=== PATIENT | female | born 1970 | race Caucasian/White ===

== ENCOUNTER → 2017-07-20 | Outpatient (CLI) | payer MEDICAID ==
[~2017-07-20] VITALS: Ht 154.9 cm; Wt 91.6 kg
[~2017-07-20] MED LIST: ACET325T38 PO; ASPI-983 PO; ATOR10TA66 PO; CATHETER FLUSH 10 ML SYR IV PRN; CEFU500T63 PO; DULO60CA6 PO; HYDR-700 PO; LISI10TA2 PO; REGADENOSON 0.4 MG/5 ML SYR (LEXISCAN) IV ONE; RT-ALBUINH IH; TIOT18CA2 IH
[2017-07-20 13:08] VITALS: BP 120/76
[2017-07-20 13:12] VITALS: BP 134/77
[2017-07-20 13:13] VITALS: BP 149/74
--- NOTE | 2017-07-23 11:56 | STRESS TEST ---
DATE OF SERVICE: 07/20/2017 PROCEDURE PERFORMED: Resting and post-regadenoson technetium-99m tetrofosmin SPECT CT imaging. ORDERING PHYSICIAN: Obdulia Bowman APRN. PRIMARY PHYSICIAN: Rosario Pickens DO. OTHER PHYSICIAN: Deborah Lawrence APRN. CLINICAL DIAGNOSIS: Chest pain. Baseline images were carried out after injection of 10.35 mCi of technetium-99m tetrofosmin. This was followed by 0.4 mg of regadenoson and 28.6 mCi of technetium-99m tetrofosmin for stress imaging. The electrocardiogram showed paced ventricular rhythm versus a junctional rhythm with left bundle-branch block pattern and some evidence of AV dissociation. Later, the electrocardiogram shows normal sinus rhythm without any paced beats or junctional beats. The patient noted shortness of breath and nausea following regadenoson infusion, which resolved in a few minutes after the regadenoson infusion. Review of images at rest and following stress does not indicate any significant perfusion defects consistent with significant myocardial ischemia or infarction. Gated images show normal global left ventricular systolic function and normal regional wall motion. Left ventricular ejection fraction is calculated to be 61%. Left ventricular end diastolic volume is 35 mL. TID is absent (1.03). CONCLUSIONS: 1. The first part of the study shows a paced ventricular rhythm versus junctional rhythm with a left bundle-branch block pattern and some evidence of AV dissociation. 2. No evidence of significant myocardial ischemia or infarction on this study. 3. Normal regional wall motion. 4. Normal global left ventricular systolic function with a calculated ejection fraction of 61%. Job ID: [id number] DocumentID: [id number] Dictated Date: 07/23/2017 07:32:04 Material Controller Date: 07/23/2017 11:55:28 Dictated By: CORNELL ELAM MD, MA, FACP, FACC, MTDD
== END ==
LOC: CARD 09:51
PROVIDERS: ATTEND Nurse Practitioner Family
DX: R07.9 Chest pain, unspecified (principal)
CPT/HCPCS: 78452; 93017

== ENCOUNTER 2017-08-03 06:48 | Day surgery (SDC) | payer MEDICAID ==
[2017-08-03] VITALS (9 sets, daily range): BP systolic 101–129; BP diastolic 58–89
[~2017-08-03] VITALS: Ht 154.9 cm; Wt 88.0 kg
[2017-08-03] MEDS ORDERED: HEParin (CATH LAB) 1,000 ML IV ONE (06:54)
[2017-08-03] MEDS ORDERED: NS IV 1000 ML 1,000 ML ONE (06:54)
[2017-08-03] MEDS ORDERED: LIDOCAINE 1% INJ 20 ML 20 ML VIAL ONE (06:54)
[2017-08-03] MEDS ORDERED: NS IV 1000 ML 1,000 ML IV ONE (06:56)
[2017-08-03] MEDS ORDERED: ceFAZolin 1,000 MG (ANCEF) VIAL IV ONE (07:00)
[2017-08-03] MEDS ORDERED: BACITRACIN INJECTION 50,000 UNIT, SODIUM CHLORIDE 0.9% IRRIGATIO 500 ML IR ONE ×2 (07:00)
[2017-08-03 07:26] LABS: HEMOGLOBIN 17.8 G/DL (11.5-16.0); MEAN PLATELET VOLUME 12.2 FL (7.4-10.4); RED BLOOD COUNT 5.93 10^6/uL (4.35-5.85); RED CELL DISTRIBUTION WIDTH 14.4 % (10.0-14.5); WHITE BLOOD COUNT 8.4 10^3/uL (4.3-11.0)
[2017-08-03] MEDS ORDERED: TIOT18CA2 IH (07:26)
[2017-08-03] MEDS ORDERED: HYDR-700 PO (07:26)
[2017-08-03] MEDS ORDERED: RT-ALBUINH IH (07:26)
[2017-08-03] MEDS ORDERED: LISI10TA2 PO (07:26)
[2017-08-03] MEDS ORDERED: DULO60CA6 PO (07:26)
[2017-08-03] MEDS ORDERED: ATOR10TA66 PO (07:26)
[2017-08-03] MEDS ORDERED: ASPI-983 PO (07:26)
[2017-08-03] MEDS ORDERED: ceFAZolin 1,000 MG (ANCEF) VIAL ONE (07:32)
[2017-08-03] MEDS ORDERED: NS (IVPB) 50 ML ONE (07:33)
[2017-08-03 07:45] LABS: INR 1.1 (0.8-1.4); PROTHROMBIN TIME PATIENT 14.2 SEC (12.2-14.7)
[2017-08-03 07:46] LABS: ALANINE AMINOTRANSFERASE 27 U/L (0-55); ALBUMIN 4.1 GM/DL (3.2-4.5); ALKALINE PHOSPHATASE 96 U/L (40-136); BILIRUBIN,TOTAL 0.5 MG/DL (0.1-1.0); BUN/CREATININE RATIO 15; CALCIUM 9.2 MG/DL (8.5-10.1); CARBON DIOXIDE 21 MMOL/L (21-32); CHLORIDE 109 MMOL/L (98-107); CHOLESTEROL 154 MG/DL (< 200); CREATININE SERUM 0.75 MG/DL (0.60-1.30); GFR ESTIMATED > 60; GLUCOSE 96 MG/DL (70-105); HDL CHOLESTEROL 29 MG/DL (40-60); POTASSIUM 4.3 MMOL/L (3.6-5.0); SODIUM 141 MMOL/L (135-145); TOTAL PROTEIN 7.2 GM/DL (6.4-8.2); TRIGLYCERIDES 123 MG/DL (<150); VLDL CHOLESTEROL 25 MG/DL (5-40)
[2017-08-03] MEDS ORDERED: fentaNYL INJECTION 100 MCG/2 ML AMP ONE (09:27)
[2017-08-03] MEDS ORDERED: MIDAZOLAM 5 MG/5 ML (VERSED) VIAL ONE (09:27)
[2017-08-03] MEDS ORDERED: diphenhydrAMINE 50 MG/ML INJ (BENADRYL) ONE (09:27)
[2017-08-03] MEDS ORDERED: NEO/POLY/BAC (NEOSPORIN) OINT 15 GM TUBE ONE (10:52)
--- NOTE | 2017-08-03 11:11 | Cardiac Procedure Note-CS/ASA ---
Pre-Procedure Note Pre-Op Procedure Note H&P Reviewed The H&P was reviewed, patient examined and no changes noted. Date H&P Reviewed: Aug 03, 2017 Time H&P Reviewed: 10:00 Conscious Sedation Pre-Proced Time Reviewed: 10:00 ASA Class: 3 Airway Mallampati Classification: (g[place] appropriate class) I. II. III, IV Lungs Heart ASA score ASA 1: a normal healthy patient ASA 2: a patient with a mild systemic disease (mid diabetes, controlled hypertension, obesity ASA 3: a patient with a severe systemic disease that limits activity (angina , COPD, prior Myocardial infarction) ASA 4: a patient with an incapacitating disease that is a constant threat to life (CHF, renal failure) ASA 5: a moribund patient not expected to survive 24 hrs. (ruptured aneurysm) ASA 6: a declared brain patient whose organs are being harvested. For emergent operations, add the letter E after the classification Grade 3 Sedation Plan: Analgesia, Amnesia, Plan communicated to team members, Discussed options with patient/fam, Discussed risks with patient/fam Note The patient is an appropriate candidate to undergo the planned procedure, sedation, and anesthesia. The patient immediately re-assessed prior to indication. CORNELL ELAM MD FACP FAC CCDS Aug 03, 2017 11:11
[2017-08-03] MEDS ORDERED: NS IV 1000 ML 1,000 ML IV SCH (11:12)
[2017-08-03] MEDS ORDERED: PATIENT MAY USE OWN MEDS, ALL PO SCH (11:15)
[2017-08-03] MEDS ORDERED: ACET325T38 PO (11:17)
[2017-08-03] MEDS ORDERED: CEFU500T63 PO (11:17)
--- NOTE | 2017-08-03 11:20 | Discharge Inst-Post Device ---
Discharge Inst-Post Device Follow up/Plan Follow up at Dr Garza'eunice on 08/06/17 for wound inspection Follow up at Dr Giles for doctor visit in 2-3 weeks Heart Healthy Diet . Activity as tolerated. Leave dressing on until follow up at the office. CORNELL GARZA MD FACP FACC CCDS Aug 03, 2017 11:20
--- NOTE | 2017-08-03 11:20 | Discharge Inst-Cardiology ---
Discharge Inst-Cardiac Discharge Medications New Medications: Acetaminophen (Tylenol) 325 Mg Tablet 650 MG PO Q6H PRN for PAIN-MILD TO MODERATE, #60 TAB 0 Refills Cefuroxime Axetil (Cefuroxime) 500 Mg Tablet 500 MG PO BID, #10 TAB 0 Refills Continued Medications: Albuterol Sulfate (Proventil Hfa) 6.7 Gm Hfa.aer.ad 2 PUFF IH Q4-6HR PRN for SHORTNESS OF BREATH, EACH Aspirin (Aspirin EC) 81 Mg Tablet.dr 81 MG PO DAILY, TAB Atorvastatin Calcium (Atorvastatin Calcium) 10 Mg Tablet 10 MG PO HS, TAB Duloxetine HCl (Cymbalta) 60 Mg Capsule.dr 60 MG PO DAILY, CAP Hydroxyzine HCl (Hydroxyzine HCl) 25 Mg Tablet 25 MG PO BID PRN for ANXIETY, TAB Lisinopril (Lisinopril) 10 Mg Tablet 10 MG PO DAILY, TAB Tiotropium [place] (Spiriva) 1 Inh Aerp 1 INH IH DAILY, INHALER CORNELL ELAM MD FACP FAC CCDS Aug 03, 2017 11:20
--- NOTE | 2017-08-03 12:35 | Diagnostic Imaging Report ---
INDICATION: Post operative pacemaker pulse generator change. TECHNIQUE: Single view chest 11:35 AM. CORRELATION STUDY: None FINDINGS: Left-sided dual-chamber pacemaker is present. There is a redundancy of the proximal leads. Heart size enlarged. The vasculature is slightly prominent. Slight increased markings about the lung bases, right greater than left. No appreciable pneumothorax or significant effusion. IMPRESSION: 1. Left-sided multichamber pacemaker. Cardiac enlargement with mild vascular congestion. Slight increased markings in the lung bases, right greater than left, could reflect minimal atelectasis with hypoventilation. Infiltrate and/or edema not excluded. Followup imaging as clinically warranted. Dictated by: Dictated on workstation # [id number]
--- NOTE | 2017-08-03 21:52 | OPERATIVE REPORT ---
DATE OF SERVICE: 08/03/2017 The patient is a 46-year-old lady who has had a dual chamber pacemaker implanted by Dr. Sanches at [facility] in [place], [place] in 2006. The device was placed for symptomatic bradycardia. It is currently at end of life and we changed the device today after having obtained an informed consent. DESCRIPTION OF PROCEDURE: She was brought to the cardiac catheterization laboratory in a fasting state. The left prepectoral area, the site of previous pacemaker implantation, was prepared and draped in usual sterile fashion. A 1% lidocaine was used for local anesthesia. Sharp and blunt dissection was used to open the pacemaker pocket and the pacemaker was removed from the pocket. The pocket was thoroughly irrigated with an antibiotic solution. Good hemostasis was assured. The pacemaker was detached from the previous device and a new pacemaker was attached to the old leads. The implanted pacemaker is Medtronic model W3DR01 with serial number [id number]. The pacemaker and the leads are found to be functioning normally upon interrogation carried out following the pulse generator change. The right atrial lead is Medtronic model 5076-52 with serial number [id number]. The right ventricular lead is Medtronic model 5076-58 with serial number [id number]. The right atrial lead tip is at right atrial appendage and the right ventricular lead tip is at the right ventricular septum, according to previous records. The right ventricular sensing threshold is chronically low and ranges between 2 and 3 millivolts. Today, the R waves are measured at 2.4 millivolts, which is unchanged from the previous readings. P-wave amplitude was measured at 3 millivolts. Right atrial pacing impedance is 494 ohms. Right ventricular pacing impedance is 456 ohms. Capture threshold in both chambers is 1 volt at 0.5 milliseconds. The device and the leads were then placed back into the pacemaker pocket after the pocket had been irrigated with an antibiotic solution and good hemostasis was assured and the pocket was closed in 2 layers using 3-0 Vicryl. She tolerated the procedure well. Job ID: [id number] DocumentID: [id number] Dictated Date: 08/03/2017 11:05:14 Elevator Attendant Date: 08/03/2017 21:51:33 Dictated By: CORNELL ELAM MD, MA, FACP, FACC,
== END 2017-08-03 13:42 | disposition home or self-care (01) ==
LOC: CATH 06:48 → SURG 11:12 → CATH 13:42
PROVIDERS: ATTEND Internal Medicine Cardiovascular Disease
DX: Z45.010 Encounter for checking and testing of cardiac pacemaker pulse generator [battery] (principal); I10 Essential (primary) hypertension; E11.9 Type 2 diabetes mellitus without complications; E78.5 Hyperlipidemia, unspecified; F17.210 Nicotine dependence, cigarettes, uncomplicated; E66.9 Obesity, unspecified; Z68.36 Body mass index [BMI] 36.0-36.9, adult; Z79.82 Long term (current) use of aspirin; Z79.899 Other long term (current) drug therapy
CPT/HCPCS: 33228; 36415; 71045; 80053; 80061; 85027; 85610; 85730; 87081; 93005

== ENCOUNTER → 2017-08-24 | Outpatient (CLI) | payer MEDICAID ==
[~2017-08-24] MED LIST changes: -CATHETER FLUSH 10 ML SYR IV PRN; -REGADENOSON 0.4 MG/5 ML SYR (LEXISCAN) IV ONE
--- NOTE | 2017-08-24 16:21 | Diagnostic Imaging Report ---
EXAMINATION: Ultrasound noninvasive extremity. INDICATION: Chest pain. FINDINGS: The segmental pressures of each lower extremity were obtained in the routine fashion. On the prior exam of 09/22/2014, the ankle-brachial index on the right was 0.95 and on the left 1.01 (normal 1.00 or greater). On this exam, the ankle-brachial index on the right is now 1.01 and on the left 0.95. IMPRESSION: The ankle-brachial index on the right is now within normal limits while the ankle-brachial index on the left is just below normal. Dictated by: Dictated on workstation # [id number]
== END ==
LOC: CARD 11:21
PROVIDERS: ATTEND Nurse Practitioner Family
DX: R07.9 Chest pain, unspecified (principal)
CPT/HCPCS: 93306; 93923

== ENCOUNTER → 2017-09-01 | Outpatient (CLI) | payer MEDICAID ==
--- NOTE | 2017-09-01 15:45 | Diagnostic Imaging Report ---
INDICATION: Low back pain radiating to the legs. TIME OF EXAM: 4:00 p.m. FINDINGS: Curvature and alignment of the lumbar spine is normal. Vertebral body heights are maintained. There is some generalized degenerative disc disease with marginal spurring. There is some disc space narrowing at L4-L5 level. There appears to be an aortic stent in place. Lower lumbar facet arthropathy is seen. IMPRESSION: Lumbar spondylosis. No acute bony abnormality is detected. Dictated by: Dictated on workstation # [id number]
== END ==
LOC: RT 14:50
PROVIDERS: ATTEND Nurse Practitioner Family
DX: M54.41 Lumbago with sciatica, right side (principal); J44.9 Chronic obstructive pulmonary disease, unspecified; Z72.0 Tobacco use
CPT/HCPCS: 72100

== ENCOUNTER 2018-03-08 09:59 | Day surgery (SDC) | payer MEDICAID ==
[~2018-03-08] VITALS: Ht 154.9 cm; Wt 94.3 kg
[2018-03-08] VITALS (10 sets, daily range): BP systolic 135–168; BP diastolic 67–102
--- OUTSIDE RECORDS SUMMARY | 2018-03-08 10:03 | XMS REPORT ---
Author Author LUDMILA CARLITOS [facility] Address [address] [place] [address] Care Team Providers Care Lap Welder Name Role Phone CARLITOS KEYS Unavailable PROBLEMS Type Condition ICD9-CM Code QWD78-NQ Code Onset Dates Condition Status SNOMED Code Problem Dysthymia F34.1 Active 20225142 Problem Hyperglycemia R73.9 Active 67693334 Problem Hypertension, essential I10 Active 09345801 Problem Lumbar spondylolysis M43.06 Active 047044258 Problem Tobacco abuse counseling Z71.6 Active 429585877 Problem PAD (peripheral artery disease) I73.9 Active 076344507 Problem Mitral valve disorder I05.9 Active 10692026 Problem Tobacco abuse Z72.0 Active 233451083 Problem Pacemaker Z95.0 Active 880217758 Problem Anhedonia R45.84 Active 63064227 Problem Chronic obstructive pulmonary disease, unspecified COPD type J44.9 Active 63835946 Problem Pulmonary emphysema, unspecified emphysema type J43.9 Active 31002808 Problem Hyperlipidemia, unspecified hyperlipidemia E78.5 Active 83811767 Problem Lumbago with sciatica, right side M54.41 Active 628524694 Problem Coronary artery disease involving [place] coronary artery of [place] heart without angina pectoris I25.10 Active 5658856569109 Problem Other chronic pain G89.29 Active 55468487 ALLERGIES No Information ENCOUNTERS Encounter Location Date Diagnosis [facility] [address] [id number][place] [id number] Oct, [facility] [address] [id number][place] [id number] Sep, Urinary tract infection, site not specified N39.0 ; Acute right-sided low back pain, with sciatica presence unspecified M54.5 and Hematuria, unspecified R31.9 [facility] [address] [place] [address] AVE [id number], [place] [id number] Sep, [facility] [address] [id number] [place] [id number] Sep, [address] [id number][place] [id number] Sep, [address] [id number], [place] [id number] Sep, [facility] [address] [id number], [place] [id number] Aug, [facility] [address] [facility] [id number] [place] [address] Aug, [facility] [address] [id number][place] [id number] Aug, Lumbar spondylolysis M43.06 [facility] [address] [id number][place] [id number] Aug, Tobacco abuse Z72.0 [facility] [address] [id number], [place] [id number] Aug, Chronic obstructive pulmonary disease, unspecified COPD type J44.9 ; Tobacco abuse Z72.0 ; Tobacco abuse counseling Z71.6 ; Lumbago with sciatica, right side M54.41 and Other chronic pain G89.29 [facility] [address] [id number], [place] [id number] Aug, [facility] [address] [id number], [place] [id number] Aug, Hyperlipidemia, unspecified hyperlipidemia E78.5 ; Hypertension, essential I10 ; Pulmonary emphysema, unspecified emphysema type J43.9 ; Dysthymia F34.1 and Chronic obstructive pulmonary disease, unspecified COPD type J44.9 [facility] [address] [id number][place] [id number] June, Chest pain R07.9 ; Dyspnea on exertion R06.09 ; CAD (coronary artery disease) I25.10 ; Mitral valve disorder I05.9 ; Tobacco abuse Z72.0 ; Pacemaker Z95.0 ; PAD (peripheral artery disease) I73.9 and BMI 40.0-44.9, adult Z68.41 [facility] [address] [id number][place] [id number] June, Dysthymia F34.1 [facility] [address] [id number], [place] [id number] Apr, [facility] [address] [id number], [place] [id number] Apr, Coronary artery disease involving [place] coronary artery of [place] heart without angina pectoris I25.10 [facility] [address] [id number], [place] [id number] Apr, [facility] [address] [id number], [place] [id number] Apr, [facility] [address] [address] [id number][place] [id number] Apr, [facility] [address] [id number], [place] [id number] Apr, Hyperglycemia R73.9 ; Chronic obstructive pulmonary disease, unspecified COPD type J44.9 ; Dysthymia F34.1 and BMI 40.0-44.9, adult Z68.41 [facility] [address] [id number], [place] [id number] Mar, Pulmonary emphysema, unspecified emphysema type J43.9 and Dysthymia F34.1 [facility] [address] [id number], [place] [id number] Feb, Hyperlipidemia, unspecified hyperlipidemia E78.5 ; Hypertension, essential I10 ; Hyperglycemia R73.9 and Pulmonary emphysema, unspecified emphysema type J43.9 [facility] [address] [id number], [place] [id number] Feb, Pulmonary emphysema, unspecified emphysema type J43.9 ; Dysthymia F34.1 ; Lumbago with sciatica, right side M54.41 and Other chronic pain G89.29 [facility] [address] [id number], [place] [id number] Feb, [facility] [address] [facility] [id number][place] [id number] Nov, [facility] [address] [facility] [id number], [place] [id number] Nov, Chronic obstructive pulmonary disease, unspecified COPD type J44.9 ; Encounter for immunization Z23 ; Hyperlipidemia, unspecified hyperlipidemia E78.5 ; Coronary artery disease involving [place] coronary artery of [place] heart without angina pectoris I25.10 and Anhedonia R45.84 [facility] [address] [place] [address] [id number], [place] [id number] Jul, Coronary atherosclerosis of unspecified type of vessel, [place] or graft 414.00 ; Mixed hyperlipidemia 272.2 ; COPD (chronic obstructive pulmonary disease) 496 ; Obesity 278.00 and Bipolar disorder 296.80 [facility] [address] [place] [address] [id number], [place] [id number] June, Coronary atherosclerosis of unspecified type of vessel, [place] or graft 414.00 ; Mixed hyperlipidemia 272.2 ; Metabolic syndrome 277.7 ; COPD ( chronic obstructive pulmonary disease) 496 and Elevated liver enzymes 790.5 [facility] [address] [facility] [id number], [place] [id number] May, COPD with acute exacerbation 491.21 and Tobacco abuse 305.1 [facility] [id number] [place] [id number] May, [facility] [id number] [place] [address] May, [facility] [id number] [place] [address] Apr, [facility] [id number] [place] [address] Apr, [facility] [id number] [place] [id number] Apr, [facility] [place] [facility] [address] [id number] [place] [address] Apr, [facility] [place] [facility] [address] [id number] [place] [address] Feb, [facility] [place] [facility] [address] [id number] [place] [address] Feb, [facility] [place] [facility] [address] [id number] [place] [address] Feb, [facility] [place] [facility] [address] [id number] [place] [address] Feb, [facility] [place] [facility] [address] [id number] [place] [address] Dec, [facility] [place] [facility] [address] [id number] [place] [address] Dec, [facility] [place] [facility] [address] [id number] [place] [address] Nov, [facility] [place] [facility] [address] [id number] [place] [address] 23 Nov, 2012 [facility] [place] [facility] [address] [id number], [place] [address] 18 Nov, 2012 [facility] [place] [facility] [address] [id number] [place] [address] 18 Nov, 2012 [facility] [place] [facility] [address] [id number], [place] [address] 16 Nov, 2012 [facility] [place] [facility] [address] [id number] [place] [address] 16 Nov, 2012 [facility] [place] [facility] [address] [id number] [place] [address] Nov, [facility] [place] [facility] [address] [id number] [place] [address] Nov, [facility] [place] [facility] [address] [id number] [place] [address] 08 Nov, 2012 [facility] [address] [id number] [place] [address] Aug, [facility] [place] [facility] [address] [id number] [place] [address] Aug, [facility] [address] [id number] [place] [address] Aug, [facility] [place] [facility] [address] [id number] [place] [address] May, [facility] [address] [id number] [place] [address] May, [facility] [place] [facility] [address] [id number] [place] [address] May, [facility] [address] [id number] [place] [address] May, [facility] [address] [id number] [place] [address]- 237[address] May, [facility] [address] [id number] [place] [address]- 47[address] May, [facility] [place] [facility] [address] [id number] [place] [address]- [address] May, [facility] [place] [facility] [address] [id number] [place] [address]- 1577 May, [facility] [place] [facility] [address] [id number] [place] [address]- [address] Apr, [facility] [place] [facility] [address] [id number] [place] [address] Mar, [facility] [place] [facility] [address] [id number] [place] [address]- 66[address] Feb, [facility] [place] [facility] [address] [id number] [place] [address]- [address] Feb, [facility] [place] [facility] [address], [place] [address] Jan, [facility] [address], [place] [address] Jan, [facility] [address] [facility] [id number], [place] [address] Jan, [facility] [id number] [place] [address]- [address] Jan, [facility] [address] [facility] [id number], [place] [address] Jan, [facility] [id number] [place] [address]- [address] Jan, [facility] [address], [place] [address] Jan, [facility] [id number] [place] [address]- [address] Nov, [facility] [address], [place] [address] Nov, [facility] [address]65[address], [place] [address] Nov, [facility] [address] [id number], [place] [address] Jul, IMMUNIZATIONS No Known Immunizations SOCIAL HISTORY Never Assessed REASON FOR VISIT lung function test PLAN OF CARE VITAL SIGNS MEDICATIONS Unknown Medications RESULTS No Results PROCEDURES No Known procedures INSTRUCTIONS MEDICATIONS ADMINISTERED No Known Medications MEDICAL (GENERAL) HISTORY Type Description Date Medical History hypertension Medical History fatty liver Medical History depression Medical History bipolar disorder Medical History obsessive-compulsive personality disorder Medical History hyperlipidemia Medical History CAD-dual chamber d/t bradycardia in 30's has pacemaker, h/o 2 stents Medical History OSAS but untreated Medical History GERD Medical History PTSD Medical History Metabolic Syndrome Medical History cervical cancer Medical History carpal tunnel Medical History CVD risk 23.2% Medical History COPD-chest x-ray Medical History normal PFT Medical History x-ray lumbar spine mild spondylosis Surgical History hysterectomy full cervical cancer stage 2 ELIJAH with BSO 2002 Surgical History Cardiothoracic has 2 stents 2006 Surgical History cholecystectomy 1990 Surgical History pacemaker 2006 Surgical History pacemaker revision 2017 Hospitalization History Surgery(s) only
--- OUTSIDE RECORDS SUMMARY | 2018-03-08 10:04 | XMS REPORT ---
Author Author LUDMILA CARLITOS [facility] Address [address] [place] [address] Care Team Providers Care Furniture Removalist Name Role Phone CARLITOS KEYS Unavailable PROBLEMS Type Condition ICD9-CM Code ZHG19-VM Code Onset Dates Condition Status SNOMED Code Problem Dysthymia F34.1 Active 00520937 Problem Hyperglycemia R73.9 Active 47843462 Problem Hypertension, essential I10 Active 76162807 Problem Lumbar spondylolysis M43.06 Active 866376665 Problem Tobacco abuse counseling Z71.6 Active 210553604 Problem PAD (peripheral artery disease) I73.9 Active 783217048 Problem Mitral valve disorder I05.9 Active 21387682 Problem Tobacco abuse Z72.0 Active 042046358 Problem Pacemaker Z95.0 Active 323626348 Problem Anhedonia R45.84 Active 51445380 Problem Chronic obstructive pulmonary disease, unspecified COPD type J44.9 Active 76908413 Problem Pulmonary emphysema, unspecified emphysema type J43.9 Active 58042265 Problem Hyperlipidemia, unspecified hyperlipidemia E78.5 Active 56651983 Problem Lumbago with sciatica, right side M54.41 Active 107023221 Problem Coronary artery disease involving three affiliated coronary artery 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 angina pectoris I25.10 Active 5072138461222 Problem Other chronic pain G89.29 Active 43604320 ALLERGIES No Information ENCOUNTERS Encounter Location Date Diagnosis [facility] [address] [id number] [id number] Oct, [facility] [address] [id number] [place] [address] Sep, Urinary tract infection, site not specified N39.0 ; Acute right-sided low back pain, with sciatica presence unspecified M54.5 and Hematuria, unspecified R31.9 [facility] [address] [place] [address] AVE [id number], [place] [address] Sep, [facility] [address] [id number] [place] [address] Sep, [address] [id number], [place] [address] Sep, [address] [id number], [place] [address] Sep, [facility] [address] [id number], [place] [address] Aug, [facility] [address] [facility] [id number] [place] [address] Aug, [facility] [address] [id number], [place] [id number] Aug, Lumbar spondylolysis M43.06 [facility] [address] [id number], [place] [address] Aug, Tobacco abuse Z72.0 [facility] [address] [id number], [place] [address] Aug, Chronic obstructive pulmonary disease, unspecified COPD type J44.9 ; Tobacco abuse Z72.0 ; Tobacco abuse counseling Z71.6 ; Lumbago with sciatica, right side M54.41 and Other chronic pain G89.29 [facility] [address] [id number], [place] [id number] Aug, [facility] [address] [id number], [place] [address] Aug, Hyperlipidemia, unspecified hyperlipidemia E78.5 ; Hypertension, essential I10 ; Pulmonary emphysema, unspecified emphysema type J43.9 ; Dysthymia F34.1 and Chronic obstructive pulmonary disease, unspecified COPD type J44.9 [facility] [address] [id number], [place] [address] June, Chest pain R07.9 ; Dyspnea on exertion R06.09 ; CAD (coronary artery disease) I25.10 ; Mitral valve disorder I05.9 ; Tobacco abuse Z72.0 ; Pacemaker Z95.0 ; PAD (peripheral artery disease) I73.9 and BMI 40.0-44.9, adult Z68.41 [facility] [address] [id number], [place] [id number] June, Dysthymia F34.1 [facility] [address] [id number], [place] [address] Apr, [facility] [address] [id number], [place] [address] Apr, Coronary artery disease involving three affiliated coronary artery 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 angina pectoris I25.10 [facility] [address] [id number], [place] [address] Apr, [facility] [address] [id number], [place] [id number] Apr, [facility] [address] [id number], [place] [address] Apr, [facility]in[facility]K [address] [id number], [place] [address] Apr, Hyperglycemia R73.9 ; Chronic obstructive pulmonary disease, unspecified COPD type J44.9 ; Dysthymia F34.1 and BMI 40.0-44.9, adult Z68.41 [facility] [address] [id number], [place] [id number] Mar, Pulmonary emphysema, unspecified emphysema type J43.9 and Dysthymia F34.1 [facility] [address] [id number], [place] [address] Feb, Hyperlipidemia, unspecified hyperlipidemia E78.5 ; Hypertension, essential I10 ; Hyperglycemia R73.9 and Pulmonary emphysema, unspecified emphysema type J43.9 [facility] [address] [id number], [place] [address] Feb, Pulmonary emphysema, unspecified emphysema type J43.9 ; Dysthymia F34.1 ; Lumbago with sciatica, right side M54.41 and Other chronic pain G89.29 [facility] [address] [facility] [address] [id number], [place] [id number] Feb, [facility] [facility] [id number], [place] [id number] Nov, [facility] Silverman [facility] [id number], [place] [address]38803179 Nov, Chronic obstructive pulmonary disease, unspecified COPD type J44.9 ; Encounter for immunization Z23 ; Hyperlipidemia, unspecified hyperlipidemia E78.5 ; Coronary artery disease involving three affiliated coronary artery 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 angina pectoris I25.10 and Anhedonia R45.84 [facility] [address] [place] [address] [id number], [place] [address] Jul, Coronary atherosclerosis of unspecified type of vessel, three affiliated or graft 414.00 ; Mixed hyperlipidemia 272.2 ; COPD (chronic obstructive pulmonary disease) 496 ; Obesity 278.00 and Bipolar disorder 296.80 [facility] [address] [place] [address] [id number], [place] 1860[address]237 June, Coronary atherosclerosis of unspecified type of vessel, three affiliated or graft 414.00 ; Mixed hyperlipidemia 272.2 ; Metabolic syndrome 277.7 ; COPD ( chronic obstructive pulmonary disease) 496 and Elevated liver enzymes 790.5 [facility] Silverman [facility] [id number], [place] [address] May, COPD with acute exacerbation 491.21 and Tobacco abuse 305.1 [facility] [place] [facility] [address] [place] [address]- [address] May, [facility] [place] [facility] [id number] [place] [address]- 9374 May, [facility] [place] [facility] [id number] [place] [address]7411- 2551 Apr, [facility] [place] [facility] [id number] [place] [address]72- 0793 Apr, [facility] [place] [facility] [id number] [place] [id number]- 8197 Apr, [facility] [place] [facility] [address] [id number] [place] [address] 3417 Apr, [facility] [place] [facility] [address] [id number] [place] [address]- 7919 Feb, [facility] [place] [facility] [address] [id number] [place] [address]- 3661 Feb, [facility] [place] [facility] [address] [id number] [place] [address]- 6845 Feb, [facility] [place] [facility] [address] [id number] [place] [address]- 7074 Feb, [facility] [place] [facility] [address] [id number] [place] [address]- 8314 Dec, [facility] [place] [facility] [address] [id number] [place] [address]- 2574 Dec, [facility] [place] [facility] [address] [id number] [place] [address]- 1002 Nov, [facility] [place] [facility] [address] [id number] [place] [address]- 7239 23 Nov, 2012 [facility] [place] [facility] [address] [id number] [place] [address]- [address] 18 Nov, 2012 [facility] [place] [facility] [address] [id number] [place] [address]- 5722 18 Nov, 2012 [facility] [place] [facility] [address] [id number] [place] [address]- 9[address] 16 Nov, 2012 [facility] [place] [facility] [address] [id number] [place] [address]- 8094 16 Nov, 2012 [facility] [place] [facility] [address] [id number] [place] [address]- 9746 Nov, [facility] [place] [facility] [address] [id number] [place]- 3139 Nov, [facility] [place] [facility] [address] [id number] [place] [address]- 7963 08 Nov, 2012 [facility] [address] [id number] [place] [address]- 6580 Aug, [facility] [place] [facility] [address] [id number] [place] [address]- 0242 Aug, [facility] [address] [id number] [place] [address]- 1247 Aug, [facility] [place] [facility] [address] [id number] [place] [address]- 4491 May, [facility] [address] [id number] [place] [address]- 7573 May, [facility] [place] [facility] [address] [id number] [place] [address]- 5347 May, [facility] [address] [id number] [place] [address]- 2215 May, [facility] [address] [id number] [place] [address]- 4687 May, [facility] [address] [id number] [place] [address]- 4983 May, [facility] [place] [facility] [address] [id number] [place] [address]- 1293 May, [facility] [place] [facility] [address] [id number] [place] [address]- 1678 May, [facility] [place] [facility] [address] [id number] [place] [address]- 0198 Apr, [facility] [place] [facility] [address] [id number] [place] [address]- 1909 Mar, [facility] [place] [facility] [address] [id number] [place] [address]- 4674 Feb, [facility] [place] [facility] [address] [id number] [place] [address]- 6234 Feb, [facility] [place] [facility] [address] [place] [address]- 9976 Jan, [facility] [place] [facility] [address] [place] [address]- 6046 Jan, [facility] [place] [facility] [address] [facility] [id number] [place] [address]- 0706 Jan, [facility] [place] [facility] [address] [place] [address] 63525- 0964 Jan, [facility] [place] [facility] [address] [facility] [id number] [place] [address]- 6302 Jan, [facility] [place] [facility] [address] [place] [address] 35370- 8807 Jan, [facility] [place] [facility] [address]100[facility] [place] [address]- 5775 Jan, [facility] [place] [facility] [address] [place] [address] 29192- 2739 Nov, [facility] [place] [facility] [address]100[facility] [place] [address]- 9377 Nov, [facility] [place] [facility] [address]100[facility] [place] [address]- 6396 Nov, [facility] [place] [facility] [address] [id number] [place] [address]- 5372 Jul, IMMUNIZATIONS No Known Immunizations SOCIAL HISTORY Never Assessed REASON FOR VISIT Cancel Appointment Request PLAN OF CARE VITAL SIGNS MEDICATIONS Unknown [...]
--- OUTSIDE RECORDS SUMMARY | 2018-03-08 10:04 | XMS REPORT ---
Author Author LUDMILA CARLITOS [facility] Address [address] [place] [address] Care Team Providers Care Neurology Director Name Role Phone CARLITOS KEYS Unavailable PROBLEMS Type Condition ICD9-CM Code XTZ03-GQ Code Onset Dates Condition Status SNOMED Code Problem Dysthymia F34.1 Active 80156302 Problem Hyperglycemia R73.9 Active 68418018 Problem Hypertension, essential I10 Active 56912284 Problem Lumbar spondylolysis M43.06 Active 930641968 Problem Tobacco abuse counseling Z71.6 Active 523236566 Problem PAD (peripheral artery disease) I73.9 Active 197046648 Problem Mitral valve disorder I05.9 Active 25912702 Problem Tobacco abuse Z72.0 Active 907761460 Problem Pacemaker Z95.0 Active 326081282 Problem Anhedonia R45.84 Active 62712259 Problem Chronic obstructive pulmonary disease, unspecified COPD type J44.9 Active 14950986 Problem Pulmonary emphysema, unspecified emphysema type J43.9 Active 80252971 Problem Hyperlipidemia, unspecified hyperlipidemia E78.5 Active 61406295 Problem Lumbago with sciatica, right side M54.41 Active 711889393 Problem Coronary artery disease involving sokaogon coronary artery of sokaogon heart without angina pectoris I25.10 Active 2545157446275 Problem Other chronic pain G89.29 Active 10363429 ALLERGIES No Information ENCOUNTERS Encounter Location Date Diagnosis [facility] [address] [id number][place] [id number] Oct, [facility] [address] [id number], [place] [address] Sep, Urinary tract infection, site not specified N39.0 ; Acute right-sided low back pain, with sciatica presence unspecified M54.5 and Hematuria, unspecified R31.9 [facility] [address] [place] [address] AVE [id number], [place] [address]84[address] Sep, [facility] [address] [id number] [place] [address] Sep, [address] [id number], [place] [address] Sep, [address] [id number], [place] [address] Sep, [facility] [address] [id number], [place] [id number] Aug, [facility] [address] [facility] [id number] [place] [address]- [address] Aug, [facility] [address] [id number], [place] [id number] Aug, Lumbar spondylolysis M43.06 [facility] [address] [id number], [place] [address]20636 Aug, Tobacco abuse Z72.0 [facility] [address] [id number], [place] [address] Aug, Chronic obstructive pulmonary disease, unspecified COPD type J44.9 ; Tobacco abuse Z72.0 ; Tobacco abuse counseling Z71.6 ; Lumbago with sciatica, right side M54.41 and Other chronic pain G89.29 [facility] [address] [id number], [place] [id number] Aug, [facility] [address] [id number], [place] [address] Aug, Hyperlipidemia, unspecified hyperlipidemia E78.5 ; Hypertension, essential I10 ; Pulmonary emphysema, unspecified emphysema type J43.9 ; Dysthymia F34.1 and Chronic obstructive pulmonary disease, unspecified COPD type J44.9 [facility] [address] [id number], [place] [address] June, Chest pain R07.9 ; Dyspnea on exertion R06.09 ; CAD (coronary artery disease) I25.10 ; Mitral valve disorder I05.9 ; Tobacco abuse Z72.0 ; Pacemaker Z95.0 ; PAD (peripheral artery disease) I73.9 and BMI 40.0-44.9, adult Z68.41 [facility] [address] [id number], [place] [id number] June, Dysthymia F34.1 [facility] [address] [id number], [place] [id number] Apr, [facility] [address] [id number], [place] [address] Apr, Coronary artery disease involving sokaogon coronary artery of sokaogon heart without angina pectoris I25.10 [facility] [address] [id number], [place] [id number] Apr, [facility] [address] [id number], [place] [address] Apr, [facility] A[address] [id number], [place] [id number] Apr, [facility]PITALFRWD TechnologiesK [address] [id number], [place] [address]2953 Apr, Hyperglycemia R73.9 ; Chronic obstructive pulmonary disease, unspecified COPD type J44.9 ; Dysthymia F34.1 and BMI 40.0-44.9, adult Z68.41 [facility] [address] [id number], [place] [address]48[address] Mar, Pulmonary emphysema, unspecified emphysema type J43.9 and Dysthymia F34.1 [facility]ITALFRWD TechnologiesK [address] [id number], [place] 924[address]569 Feb, Hyperlipidemia, unspecified hyperlipidemia E78.5 ; Hypertension, essential I10 ; Hyperglycemia R73.9 and Pulmonary emphysema, unspecified emphysema type J43.9 [facility]ITALFRWD TechnologiesK [address] [employer] [id number], [place] 8[address] Feb, Pulmonary emphysema, unspecified emphysema type J43.9 ; Dysthymia F34.1 ; Lumbago with sciatica, right side M54.41 and Other chronic pain G89.29 [facility] [address] [id number], [place] 635893433 Feb, [facility] [id number], [place] 9[address]822440 Nov, [facility] Silverman [facility] [id number], [place] [id number] Nov, Chronic obstructive pulmonary disease, unspecified COPD type J44.9 ; Encounter for immunization Z23 ; Hyperlipidemia, unspecified hyperlipidemia E78.5 ; Coronary artery disease involving sokaogon coronary artery of sokaogon heart without angina pectoris I25.10 and Anhedonia R45.84 [facility] [address] [place] [address] [id number], [place] [id number] Jul, Coronary atherosclerosis of unspecified type of vessel, sokaogon or graft 414.00 ; Mixed hyperlipidemia 272.2 ; COPD (chronic obstructive pulmonary disease) 496 ; Obesity 278.00 and Bipolar disorder 296.80 [facility] [address] [place] [address] [id number], [place] [id number] June, Coronary atherosclerosis of unspecified type of vessel, sokaogon or graft 414.00 ; Mixed hyperlipidemia 272.2 ; Metabolic syndrome 277.7 ; COPD ( chronic obstructive pulmonary disease) 496 and Elevated liver enzymes 790.5 [facility] Silverman [facility] [id number], [place] [address]019530 May, COPD with acute exacerbation 491.21 and Tobacco abuse 305.1 [facility] [address] [place] [address] [id number]- 2863 May, [facility] [id number] [place] [address] 88450- 4142 May, [facility] [id number] [place] [address] 28062- 9655 Apr, [facility] [id number] [place] [address] 89884- 7494 Apr, [facility] [id number] [place] [address] 59065911- 3872 Apr, [facility] [place] [facility] [address] [id number] [place] [address]- 0676 Apr, [facility] [place] [facility] [address] [id number] [place] [address]- 7145 Feb, [facility] [place] [facility] [address] [id number] [place] [address]- 6773 Feb, [facility] [place] [facility] [address] [id number] [place] [address]- 7838 Feb, [facility] [place] [facility] [address] [id number] [place] [address]- 4934 Feb, [facility] [place] [facility] [address] [id number] [place] [address]- 8251 Dec, [facility] [place] [facility] [address] [id number] [place] [address]- 4889 Dec, [facility] [place] [facility] [address] [id number] [place] [address]- 2460 Nov, [facility] [place] [facility] [address] [id number] [place] [address]- 0252 23 Nov, 2012 [facility] [place] [facility] [address] [id number], [place] [address]- 5266 18 Nov, 2012 [facility] [place] [facility] [address] [id number] [place] [address]- 0275 18 Nov, 2012 [facility] [place] [facility] [address] [id number], [place] [address]- 8483 16 Nov, 2012 [facility] [place] [facility] [address] [id number] [place] [address]- 6367 16 Nov, 2012 [facility] [place] [facility] [address] [id number] [place] [address]- 1250 Nov, [facility] [place] [facility] [address] [id number] [place] 6505 Nov, [facility] [place] [facility] [address] [id number] [place] [address]- 5535 08 Nov, 2012 [facility] [address] [id number] [place] [address]- 0603 Aug, [facility] [place] [facility] [address] [id number] [place] [address]- 3019 Aug, [facility] [address] [id number] [place] [address]- 8288 Aug, [facility] [place] [facility] [address] [id number] [place] [address]- 5040 May, [facility] [address] [id number] [place] [address]- 3842 May, [facility] [place] [facility] [address] [id number] [place] [address]- 4117 May, [facility] [address] [id number] [place] [address]- 4408 May, [facility] [address] [id number] [place] [address]- 6198 May, [facility] [address] [id number] [place] [address]- 0970 May, [facility] [place] [facility] [address] [id number] [place] [address]- 9448 May, [facility] [place] [facility] [address] [id number] [place] [address]- 3599 May, [facility] [place] [facility] [address] [id number] [place] [address]- 5510 Apr, [facility] [place] [facility] [address] [id number] [place] [address]- 2817 Mar, [facility] [place] [facility] [address] [id number] [place] [address]- 2208 Feb, [facility] [place] [facility] [address] [id number] [place] [address]- 5604 Feb, [facility] [place] [facility] [address], [place] [address]- 8436 Jan, [facility] [address]65100[place], [place] [address]- 1317 Jan, [facility] [address] [facility] [id number], [place] [address] Jan, [facility] [id number] [place] [address] Jan, [facility] [address] [facility] [id number], [place] [address] Jan, [facility] [id number] [place] [address] Jan, [facility] [id number], [place] [address] Jan, [facility] [id number] [place] [address] Nov, [facility] [id number], [place] [address] Nov, [facility] [id number], [place] [address] Nov, [facility] [address] [id number], [place] [address] Jul, IMMUNIZATIONS No Known Immunizations SOCIAL HISTORY Never Assessed REASON FOR VISIT LATASHA schwarz PLAN OF CARE VITAL SIGNS MEDICATIONS Unknown [...]
--- OUTSIDE RECORDS SUMMARY | 2018-03-08 10:04 | XMS REPORT ---
Author Author SEBASTIAN HAIRSTON [facility] Address [address] [place] [address] Care Team Providers Care Champagne Maker Name Role Phone MARIKA SEBASTIAN Unavailable PROBLEMS Type Condition ICD9-CM Code [id number] Code Onset Dates Condition Status SNOMED Code Problem Dysthymia F34.1 Active 28709423 Problem Hyperglycemia R73.9 Active 98560907 Problem Hypertension, essential I10 Active 78590982 Problem Lumbar spondylolysis M43.06 Active 858202130 Problem Tobacco abuse counseling Z71.6 Active 282427869 Problem PAD (peripheral artery disease) I73.9 Active 013188325 Problem Mitral valve disorder I05.9 Active 91974969 Problem Tobacco abuse Z72.0 Active 359624292 Problem Pacemaker Z95.0 Active 576773510 Problem Anhedonia R45.84 Active 08910455 Problem Chronic obstructive pulmonary disease, unspecified COPD type J44.9 Active 99835435 Problem Pulmonary emphysema, unspecified emphysema type J43.9 Active 33266636 Problem Hyperlipidemia, unspecified hyperlipidemia E78.5 Active 43846192 Problem Lumbago with sciatica, right side M54.41 Active 058263285 Problem Coronary artery disease involving chick[place]om[place] ind[place] division coronary artery of chick[place] heart without angina pectoris I25.10 Active 1050531827809 Problem Other chronic pain G89.29 Active 01403605 ALLERGIES Substance Reaction Event Type Date Status Edelstein (Diagnostic) hives Drug Allergy Sep, Active Morphine Sulfate violent behavior Drug Allergy Sep, Active ENCOUNTERS Encounter Location Date Diagnosis [facility] [id number] [id number] [id number] Oct, [facility] [address] [facility] [id number][place] [id number] Sep, Urinary tract infection, site not specified N39.0 ; Acute right-sided low back pain, with sciatica presence unspecified M54.5 and Hematuria, unspecified R31.[address] [id number] [place] [id number] Sep, [facility] [address] [id number] [place] [id number] Sep, [facility] [address] [id number] [place] [id number] Sep, [facility] [address] [id number][place] [address] Sep, [facility] [address] [id number][place] [address] Aug, [facility] [address] [facility] [id number] [address] Aug, [facility] [address] [id number][place] [id number] Aug, Lumbar spondylolysis M43.[address] [facility] [address] [id number][place] [address] Aug, Tobacco abuse Z72.0 [facility] [address] [id number][place] [address] Aug, Chronic obstructive pulmonary disease, unspecified COPD type J44.9 ; Tobacco abuse Z72.0 ; Tobacco abuse counseling Z71.6 ; Lumbago with sciatica, right side M54.41 and Other chronic pain G89.29 [facility] [address] [id number][place] [id number] Aug, [facility] [address] [id number][place] [address] Aug, Hyperlipidemia, unspecified hyperlipidemia E78.5 ; Hypertension, essential I10 ; Pulmonary emphysema, unspecified emphysema type J43.9 ; Dysthymia F34.1 and Chronic obstructive pulmonary disease, unspecified COPD type J44.9 [facility] [address] [id number][place] [id number] June, Chest pain R07.9 ; Dyspnea on exertion R06.09 ; CAD (coronary artery disease) I25.10 ; Mitral valve disorder I05.9 ; Tobacco abuse Z72.0 ; Pacemaker Z95.0 ; PAD (peripheral artery disease) I73.9 and BMI 40.0-44.9, adult Z68.41 [facility] [address] [id number][place] [address] June, Dysthymia F34.1 [facility] [address] [id number][place] [id number] Apr, [facility] [address] [id number][place] [id number] Apr, Coronary artery disease involving chick[place]om[place] indians[place]eastern division coronary artery of chick[place] indians[place] heart without angina pectoris I25.10 [facility] [address] [id number][place] [id number] Apr, [facility] [address] [id number][place] [id number] Apr, [facility] [address] [id number][place] [id number] Apr, [facility] [address] [id number][place] [id number] Apr, Hyperglycemia R73.9 ; Chronic obstructive pulmonary disease, unspecified COPD type J44.9 ; Dysthymia F34.1 and BMI 40.0-44.9, adult Z68.41 [facility] [address] [id number][place] [id number] Mar, Pulmonary emphysema, unspecified emphysema type J43.9 and Dysthymia F34.1 [facility] [address] [id number], [place] [id number] Feb, Hyperlipidemia, unspecified hyperlipidemia E78.5 ; Hypertension, essential I10 ; Hyperglycemia R73.9 and Pulmonary emphysema, unspecified emphysema type J43.9 [facility] [address] [id number][place] [id number] Feb, Pulmonary emphysema, unspecified emphysema type J43.9 ; Dysthymia F34.1 ; Lumbago with sciatica, right side M54.41 and Other chronic pain G89.[address] [id number][place] [id number] Feb, [facility] [address] [id number][place] [id number] Nov, [address] [id number][place] [id number] Nov, Chronic obstructive pulmonary disease, unspecified COPD type J44.9 ; Encounter for immunization Z23 ; Hyperlipidemia, unspecified hyperlipidemia E78.5 ; Coronary artery disease involving chickahom[place] indians-eastern division coronary artery of chickahom[place] indians[place]eastern division heart without angina pectoris I25.10 and Anhedonia R45.84 [facility] [address] [id number][place] [id number] Jul, Coronary atherosclerosis of unspecified type of vessel, chick[place]om[place] indians[place]eastern division or graft 414.00 ; Mixed hyperlipidemia 272.2 ; COPD (chronic obstructive pulmonary disease) 496 ; Obesity 278.00 and Bipolar disorder 296.[address] [id number][place] [address] June, Coronary atherosclerosis of unspecified type of vessel, chick[place]om[place] indians[place] division or graft 414.00 ; Mixed hyperlipidemia 272.2 ; Metabolic syndrome 277.7 ; COPD ( chronic obstructive pulmonary disease) 496 and Elevated liver enzymes 790.[address] [id number], [place] [address] May, COPD with acute exacerbation 491.21 and Tobacco abuse 305.1 [facility] [address] [address] May, [facility] [id number] [place] [address] May, [facility] [id number] [place] [address] Apr, [facility] [id number] [place] [address] Apr, [facility] [place] [facility] [address] [id number] [place] [address] Apr, [facility] [place] [facility] [address] [id number] [place] [address] Apr, [facility] [place] [facility] [address] [id number] [place] [address] Feb, [facility] [place] [facility] [address] [id number] [place] [address] Feb, [facility] [place] [facility] [address] [id number] [place] [address] Feb, [facility] [place] [facility] [address] [id number] [place] [address] Feb, [facility] [place] [facility] [address] [id number] [place] [address] Dec, [facility] [place] [facility] [address] [id number] [place] [address] Dec, [facility] [place] [facility] [address] [id number] [place] [address] Nov, [facility] [place] [facility] [address] [id number] [place] [address] Nov, [facility] [place] [facility] [address] [id number] [place] [address] 18 Nov, 2012 [facility] [place] [facility] [address] [id number] [place] [address] 18 Nov, 2012 [facility] [place] [facility] [address] [id number] [place] [address] 16 Nov, 2012 [facility] [place] [facility] [address] [id number] [place] 16 Nov, 2012 [facility] [place] [facility] [address] [id number] [place] 11 Nov, 2012 [facility] [place] [facility] [address] [id number] [place] [address] Nov, [facility] [address] [id number] [place] [address] Nov, [facility] [place] [facility] [address] [id number] [place] [address] Aug, [facility] [place] [facility] [address] [id number] [place] [address] Aug, [facility] [place] [facility] [address] [id number] [place] [address] Aug, [facility] [place] [facility] [address] [id number] [place] [address] May, [facility] [place] [facility] [address] [id number] [place] [address] May, [facility] [place] [facility] [address] [id number] [place] [address] May, [facility] [place] [facility] [address] [id number] [place] [address] May, [facility] [place] [facility] [address] [id number] [place] [address] May, [facility] [place] [facility] [address] [id number] [place] [address] May, [facility] [place] [facility] [address] [id number] [place] [address] May, [facility] [place] [facility] [address] [id number], [place] [address] May, [facility] [place] [facility] [address] [id number] [place] [address] Apr, [facility] [place] [facility] [address] [id number] [place] [address] Mar, [facility] [place] [facility] [address] [id number] [place] [address] Feb, [facility] [place] [facility] [address]100[place], [place] [address] Feb, [facility] [address]65100[place], [place] [address] Jan, [facility] [address]65100[place], [place] [address] Jan, [facility] [id number] [place] [address] Jan, [facility] [id number] [place] [address] Jan, [facility] [id number] [place] [address] Jan, [facility] [id number] [place] [address] Jan, [facility] [id number] [place] [address] Jan, [facility] [address] [place] [address] Nov, [facility] [id number] [place] [address] Nov, [facility] [address], [place] [address] Nov, [facility] [id number], [place] [address] Jul, IMMUNIZATIONS No Known Immunizations SOCIAL HISTORY Never Assessed REASON FOR VISIT Pain (acute) hip right side Dennise RN PLAN OF CARE Activity Details Follow Up prn Reason: VITAL SIGNS Height 60 in 2017-10-15 Weight 204.0 lbs 2017-10-15 Temperature 97.9 degrees Fahrenheit 2017-10-15 Heart Rate 74 bpm 2017-10-15 Respiratory Rate 18 2017-10-15 BMI 39.84 kg/m2 2017-10-15 Blood pressure systolic 122 mmHg 2017-10-15 Blood pressure diastolic 60 mmHg 2017-10-15 MEDICATIONS Medication Instructions Dosage Frequency Start Date End Date Duration Status Proventil HFA 108 (90 Base) MCG/ACT Inhalation 4 times a day 2 puffs as needed for wheezing/cough 6h Feb, Active HydrOXYzine HCl 25 MG Orally 2 times a day 1 tablet as needed for anxiety 12h Apr, 30 day(s) Active Atorvastatin Calcium 10 mg Orally Once a day 1 tablet 24h Feb, 90 days Active Chantix 0.5 MG Orally Once a day x 7 days then am and pm 0,5 tablet daily x 1 week then am and pm 10 Aug, 2017 30 day(s) Active Naproxen 500 mg Orally every 12 hrs 1 tablet with food or milk as needed 12h Sep, 7 Oct, 2017 07 days Active Bactrim DS 800-160 MG Orally Twice a day 1 tablet 12h Sep, 5 Oct, 2017 05 days Active Lisinopril 10 mg Orally Once a day 1 tablet 24h Feb, 180 days Active Aspirin 81 MG Orally Once a day 1 tablet 24h June, 30 day(s) Active Cymbalta 30 MG Orally Once a day 2 capsule 24h Feb, 30 day(s) Active Spiriva HandiHaler 18 MCG Inhalation Once a day 1 capsule 24h Active RESULTS No Results PROCEDURES Procedure Date Ordered Result Body Site URINALYSIS, AUTO, W/O SCOPE Oct 15, 2017 LAB NOT BILLED BY [facility] Oct 15, 2017 INSTRUCTIONS MEDICATIONS ADMINISTERED No Known Medications MEDICAL (GENERAL) HISTORY Type Description Date Medical History hypertension Medical History fatty liver Medical History depression Medical History bipolar disorder Medical History obsessive-compulsive personality disorder Medical History hyperlipidemia Medical History 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
--- OUTSIDE RECORDS SUMMARY | 2018-03-08 10:04 | XMS REPORT ---
Author Author LUDMILA CARLITOS [facility] Address [address] [place] [address] Care Team Providers Care Service Parts Coordinator Name Role Phone CARLITOS KEYS Unavailable PROBLEMS Type Condition ICD9-CM Code YAW30-KQ Code Onset Dates Condition Status SNOMED Code Problem Dysthymia F34.1 Active 03540131 Problem Hyperglycemia R73.9 Active 22869286 Problem Hypertension, essential I10 Active 08683277 Problem Lumbar spondylolysis M43.06 Active 010738555 Problem Tobacco abuse counseling Z71.6 Active 760987323 Problem PAD (peripheral artery disease) I73.9 Active 093150823 Problem Mitral valve disorder I05.9 Active 17212901 Problem Tobacco abuse Z72.0 Active 203920839 Problem Pacemaker Z95.0 Active 668952998 Problem Anhedonia R45.84 Active 09334009 Problem Chronic obstructive pulmonary disease, unspecified COPD type J44.9 Active 13415475 Problem Pulmonary emphysema, unspecified emphysema type J43.9 Active 61802315 Problem Hyperlipidemia, unspecified hyperlipidemia E78.5 Active 50906963 Problem Lumbago with sciatica, right side M54.41 Active 334773614 Problem Coronary artery disease involving tanana coronary artery of tanana heart without angina pectoris I25.10 Active 0982154162047 Problem Other chronic pain G89.29 Active 85482879 ALLERGIES No Information ENCOUNTERS Encounter Location Date Diagnosis [facility] [address] [id number], [place] [id number] Oct, [facility] [address] [id number][place] [address] Sep, Urinary tract infection, site not specified N39.0 ; Acute right-sided low back pain, with sciatica presence unspecified M54.5 and Hematuria, unspecified R31.9 [facility] [address] [place] [address] AVE [id number], [place] [id number] Sep, [facility] [address] [id number] [place] [address] Sep, [facility] [address] [id number], [place] [address] Sep, [facility] [address] [id number][place] [address] Sep, [facility] [address] [id number], [place] [address] Aug, [facility] [address] [facility] [id number] [place] [address] Aug, [facility] [address] [id number], [place] [address] Aug, Lumbar spondylolysis M43.06 [facility] [address] [id number], [place] [address] Aug, Tobacco abuse Z72.0 [facility] [address] [id number], [place] [id number] Aug, Chronic obstructive pulmonary disease, unspecified COPD type J44.9 ; Tobacco abuse Z72.0 ; Tobacco abuse counseling Z71.6 ; Lumbago with sciatica, right side M54.41 and Other chronic pain G89.29 [facility] [address] [id number], [place] [id number] Aug, [facility] [address] [id number], [place] [address] Aug, Hyperlipidemia, unspecified hyperlipidemia E78.5 ; Hypertension, essential I10 ; Pulmonary emphysema, unspecified emphysema type J43.9 ; Dysthymia F34.1 and Chronic obstructive pulmonary disease, unspecified COPD type J44.9 [facility] [address] [id number], [place] [address] June, Chest pain R07.9 ; Dyspnea on exertion R06.09 ; CAD (coronary artery disease) I25.10 ; Mitral valve disorder I05.9 ; Tobacco abuse Z72.0 ; Pacemaker Z95.0 ; PAD (peripheral artery disease) I73.9 and BMI 40.0-44.9, adult Z68.41 [facility] [address] [id number], [place] [address] June, Dysthymia F34.1 [facility] [address] [id number], [place] [address] Apr, [facility] [address] [id number], [place] [id number] Apr, Coronary artery disease involving tanana coronary artery of tanana heart without angina pectoris I25.10 [facility] [address] [id number], [place] [address] Apr, [facility] [address] [id number], [place] [address] Apr, [facility] [address] [id number], [place] [address] Apr, [facility] [address] [id number], [place] [address] Apr, Hyperglycemia R73.9 ; Chronic obstructive pulmonary disease, unspecified COPD type J44.9 ; Dysthymia F34.1 and BMI 40.0-44.9, adult Z68.41 [facility] [address] [id number], [place] [address] Mar, Pulmonary emphysema, unspecified emphysema type J43.9 and Dysthymia F34.1 [facility] [address] [id number], [place] [address] Feb, Hyperlipidemia, unspecified hyperlipidemia E78.5 ; Hypertension, essential I10 ; Hyperglycemia R73.9 and Pulmonary emphysema, unspecified emphysema type J43.9 [facility] [address] [address] [employer] [id number], [place] [address] Feb, Pulmonary emphysema, unspecified emphysema type J43.9 ; Dysthymia F34.1 ; Lumbago with sciatica, right side M54.41 and Other chronic pain G89.29 [facility] [address] [facility] [facility] [facility] [address] [id number], [place] [id number] Feb, [facility] [facility] [id number], [place] [id number] Nov, [facility] Silverman [facility] [id number], [place] 226206786 Nov, Chronic obstructive pulmonary disease, unspecified COPD type J44.9 ; Encounter for immunization Z23 ; Hyperlipidemia, unspecified hyperlipidemia E78.5 ; Coronary artery disease involving tanana coronary artery of tanana heart without angina pectoris I25.10 and Anhedonia R45.84 [facility] [place] [place] [address] [id number], [place] 405[address]47 Jul, Coronary atherosclerosis of unspecified type of vessel, tanana or graft 414.00 ; Mixed hyperlipidemia 272.2 ; COPD (chronic obstructive pulmonary disease) 496 ; Obesity 278.00 and Bipolar disorder 296.80 [facility] [address] [place] [address] [id number], [place] [id number] June, Coronary atherosclerosis of unspecified type of vessel, tanana or graft 414.00 ; Mixed hyperlipidemia 272.2 ; Metabolic syndrome 277.7 ; COPD ( chronic obstructive pulmonary disease) 496 and Elevated liver enzymes 790.5 [facility] Silverman [facility] [id number], [place] [id number] May, COPD with acute exacerbation 491.21 and Tobacco abuse 305.1 [facility] [address] [place] [id number]- 1458 May, [facility] [id number] [place] [address]- 0484 May, [facility] [id number] [place] [address] 7[address]- 5197 Apr, [facility] [id number] [place] [address]- 9349 Apr, [facility] [id number] [place] [address] [id number]- 6639 Apr, [facility] [place] [facility] [address] [id number] [place] [address]- 8789 Apr, [facility] [place] [facility] [address] [id number] [place] [address]- 655[address] Feb, [facility] [place] [facility] [address] [id number] [place] [address]- 4918 Feb, [facility] [place] [facility] [address] [id number] [place] [address]- 7761 Feb, [facility] [place] [facility] [address] [id number] [place] [address]- 6719 Feb, [facility] [place] [facility] [address] [id number] [place] [address]- 8791 Dec, [facility] [place] [facility] [address] [id number] [place] [address]- 3307 Dec, [facility] [place] [facility] [address] [id number] [place] [address]- 9191 Nov, [facility] [place] [facility] [address] [id number] [place] [address]- 9995 23 Nov, 2012 [facility] [place] [facility] [address] [id number] [address]- 5968 18 Nov, 2012 [facility] [place] [facility] [address] [id number] [place] [address]- 2211 18 Nov, 2012 [facility] [place] [facility] [address] [id number], [place] [address]- [address]777 16 Nov, 2012 [facility] [place] [facility] [address] [id number] [place] [address]- 2437 16 Nov, 2012 [facility] [place] [facility] [address] [id number] [place] [address]- 1606 Nov, [facility] [place] [facility] [address] [id number] [place] [address] Nov, [facility] [place] [facility] [address] [id number] [place] [address]- 5961 08 Nov, 2012 [facility] [address] [id number] [place] [address]- 3966 Aug, [facility] [place] [facility] [address] [id number] [place] [address]- 2357 Aug, [facility] [address] [id number] [place] [address]- 8624 Aug, [facility] [place] [facility] [address] [id number] [place] [address]- 0128 May, [facility] [address] [id number] [place] [address]- 3930 May, [facility] [place] [facility] [address] [id number] [place] [address]- 0017 May, [facility] [address] [id number] [place] [address]- 4321 May, [facility] [address] [id number] [place] [address]- 9293 May, [facility] [address] [id number] [place] [address]- 2945 May, [facility] [place] [facility] [address] [id number] [place] [address]- 7229 May, [facility] [place] [facility] [address] [id number] [place] [address]- 4697 May, [facility] [place] [facility] [address] [id number] [place] [address]- 1426 Apr, [facility] [place] [facility] [address] [id number] [place] [address]- 5833 Mar, [facility] [place] [facility] [address] [id number] [place] [address]- 7350 Feb, [facility] [place] [facility] [address] [id number] [place] [address]- 8692 Feb, [facility] [place] [facility] [address] [address]- [address] Jan, [facility] [address]65100[place] [address]- 6279 Jan, [facility] [address] [facility] [id number] [address]- 4993 Jan, [facility] [address] [place] [address]- 1654 Jan, [facility] [address] [facility] [id number] [address]- 2307 Jan, [facility] [address] [place] [address] 76471- 4664 Jan, [facility] [address]65100[place] [address]- 6168 Jan, [facility] [address] [place] [address] 91626- 7644 Nov, [facility] [address]65100[place] [address]- 9322 Nov, [facility] [address]65100[place] [address]- 3343 Nov, [facility] [address] [id number] [address] Jul, IMMUNIZATIONS No Known Immunizations SOCIAL HISTORY [...]
[2018-03-08] MEDS ORDERED: LIDOCAINE 1% INJ 20 ML 20 ML VIAL ONE (10:05)
[2018-03-08] MEDS ORDERED: HEParin (CATH LAB) 2,000 ML IV ONE (10:05)
[2018-03-08] MEDS ORDERED: NS IV 1000 ML 1,000 ML ONE (10:05)
--- OUTSIDE RECORDS SUMMARY | 2018-03-08 10:05 | XMS REPORT ---
Author Author LUDMILA CARLITOS [facility] Address [address] [place] [address] Care Team Providers Care Mechanical Maintenance Foreman Name Role Phone CARLITOS KEYS Unavailable PROBLEMS Type Condition ICD9-CM Code NCP88-KT Code Onset Dates Condition Status SNOMED Code Problem Dysthymia F34.1 Active 84405116 Problem Hyperglycemia R73.9 Active 27059749 Problem Hypertension, essential I10 Active 20640909 Problem Lumbar spondylolysis M43.06 Active 362930984 Problem Tobacco abuse counseling Z71.6 Active 261683340 Problem PAD (peripheral artery disease) I73.9 Active 463089682 Problem Mitral valve disorder I05.9 Active 25517556 Problem Tobacco abuse Z72.0 Active 920151480 Problem Pacemaker Z95.0 Active 516243502 Problem Anhedonia R45.84 Active 40070390 Problem Chronic obstructive pulmonary disease, unspecified COPD type J44.9 Active 91088310 Problem Pulmonary emphysema, unspecified emphysema type J43.9 Active 71726679 Problem Hyperlipidemia, unspecified hyperlipidemia E78.5 Active 12323364 Problem Lumbago with sciatica, right side M54.41 Active 573229671 Problem Coronary artery disease involving tanana coronary artery of tanana heart without angina pectoris I25.10 Active 4195436980886 Problem Other chronic pain G89.29 Active 14323934 ALLERGIES No Information ENCOUNTERS Encounter Location Date Diagnosis [facility] [address] [id number] [place] [id number] Sep, Urinary tract infection, site not specified N39.0 ; Acute right-sided low back pain, with sciatica presence unspecified M54.5 and Hematuria, unspecified R31.9 [facility] [address] [id number] [place] [id number] Sep, [id number] [facility] [address] [id number] [place] [address] Sep, [facility] [address] [id number] [place] [address] Sep, [facility] [address] [id number] [place] [id number] Sep, [facility] [address] [id number] [place] [id number] Aug, [facility] [address] [facility] [id number] [address] Aug, [facility] [address] [id number] [id number] Aug, Lumbar spondylolysis M43.06 [facility] [address] [id number] [address] Aug, Tobacco abuse Z72.0 [facility] [address] [id number] [place] [id number] Aug, Chronic obstructive pulmonary disease, unspecified COPD type J44.9 ; Tobacco abuse Z72.0 ; Tobacco abuse counseling Z71.6 ; Lumbago with sciatica, right side M54.41 and Other chronic pain G89.29 [facility] [address] [id number] [place] [id number] Aug, [facility] [address] [id number] [place] 864761990 Aug, Hyperlipidemia, unspecified hyperlipidemia E78.5 ; Hypertension, essential I10 ; Pulmonary emphysema, unspecified emphysema type J43.9 ; Dysthymia F34.1 and Chronic obstructive pulmonary disease, unspecified COPD type J44.9 [facility] [address] [id number] [place] [address] June, Chest pain R07.9 ; Dyspnea on exertion R06.09 ; CAD (coronary artery disease) I25.10 ; Mitral valve disorder I05.9 ; Tobacco abuse Z72.0 ; Pacemaker Z95.0 ; PAD (peripheral artery disease) I73.9 and BMI 40.0-44.9, adult Z68.[address] [facility] [address] [id number] [place] [id number] June, Dysthymia F34.1 [facility] [address] [id number] [place] [id number] Apr, [facility] [address] [id number] [place] 016502186 Apr, Coronary artery disease involving tanana coronary artery of tanana heart without angina pectoris I25.10 [facility] [address] [id number] [place] [id number] Apr, [facility] [address] [id number] [place] [id number] Apr, [facility] [address] [id number] [place] [id number] Apr, [facility] [address] [id number] 358[address] Apr, Hyperglycemia R73.9 ; Chronic obstructive pulmonary disease, unspecified COPD type J44.9 ; Dysthymia F34.1 and BMI 40.0-44.9, adult Z68.41 [facility] [address] [id number] [place] [id number] Mar, Pulmonary emphysema, unspecified emphysema type J43.9 and Dysthymia F34.1 [facility] [address] [id number] [place] [id number] Feb, Hyperlipidemia, unspecified hyperlipidemia E78.5 ; Hypertension, essential I10 ; Hyperglycemia R73.9 and Pulmonary emphysema, unspecified emphysema type J43.9 [facility] [address] [id number] [place] 146489797 Feb, Pulmonary emphysema, unspecified emphysema type J43.9 ; Dysthymia F34.1 ; Lumbago with sciatica, right side M54.41 and Other chronic pain G89.29 [facility] [address] [id number] [place] 2690440[address] Feb, [facility] [address] [facility] [address] [id number] [place] [id number] Nov, [facility] [address] [id number] [place] [address] Nov, Chronic obstructive pulmonary disease, unspecified COPD type J44.9 ; Encounter for immunization Z23 ; Hyperlipidemia, unspecified hyperlipidemia E78.5 ; Coronary artery disease involving tanana coronary artery of tanana heart without angina pectoris I25.10 and Anhedonia R45.84 [facility] [address] [id number] [place] [address] Jul, Coronary atherosclerosis of unspecified type of vessel, tanana or graft 414.00 ; Mixed hyperlipidemia 272.2 ; COPD (chronic obstructive pulmonary disease) 496 ; Obesity 278.00 and Bipolar disorder 296.80 [facility] [address] [id number] [place] [id number] June, Coronary atherosclerosis of unspecified type of vessel, tanana or graft 414.00 ; Mixed hyperlipidemia 272.2 ; Metabolic syndrome 277.7 ; COPD ( chronic obstructive pulmonary disease) 496 and Elevated liver enzymes 790.5 [facility] [address] [id number] [place] [address] May, COPD with acute exacerbation 491.21 and Tobacco abuse 305.1 [facility] [address]00565[place] [address]- 0329 May, [facility] [id number] [place] [address] 85865- 6663 May, [facility] [id number] [place] [address] 62849- 7902 Apr, [facility] [id number] [place] [address] 17380- 0621 Apr, [facility] [id number] [place] [address] 66235- 3345 Apr, [facility] [id number] [place] [address] 62608- 0636 Apr, [facility] [place] [facility] [address] [id number] [place] [address]- 2327 Feb, [facility] [place] [facility] [address] [id number] [place] [address]- 1533 Feb, [facility] [place] [facility] [address] [id number] [place] [address]- 8143 Feb, [facility] [place] [facility] [address] [id number] [place] [address]- 6175 Feb, [facility] [place] [facility] [address] [id number] [place] [address]- 0505 Dec, [facility] [place] [facility] [address] [id number] [place] [address]- 3368 Dec, [facility] [place] [facility] [address] [id number] [place] [address]- 6492 Nov, [facility] [place] [facility] [address] [id number] [address]- 0936 Nov, [facility] [place] [facility] [address] [id number] [place] [address]- 8138 Nov, [facility] [place] [facility] [address] [id number] [address]- 0643 Nov, [facility] [place] [facility] [address] [id number] [address]- 5125 16 Nov, 2012 [facility] [place] [facility] [address] [id number] [address]- 1139 16 Nov, 2012 [facility] [place] [facility] [address] [id number] [place] [address]- 6291 Nov, [facility] [place] [facility] [address] [id number], [place] [address]- 8244 Nov, [facility] [place] [facility] [address] [id number] [place] [address]- 1273 08 Nov, 2012 [facility] [place] [facility] [address] [id number] [place] [address]- 9136 Aug, [facility] [address] [id number] [place] [address]- 7976 Aug, [facility] [place] [facility] [address] [id number] [place] [address]- 5296 Aug, [facility] [place] [facility] [address] [id number] [place] [address]- 9834 May, [facility] [place] [facility] [address] [id number] [place] [address]- 1408 May, [facility] [place] [facility] [address] [id number] [place] [address]- 8312 May, [facility] [place] [facility] [address] [id number] [place] [address]- 8563 May, [facility] [address] [id number] [place] [address]- 9527 May, [facility] [place] [facility] [address] [id number] [place] [address]- 6975 May, [facility] [place] [facility] [address] [id number] [place] [address]- 7479 May, [facility] [place] [facility] [address] [id number] [place] [address]- 0508 May, [facility] [place] [facility] [address] [id number] [place] [address]- 1636 Apr, [facility] [place] [facility] [address] [id number] [place] [address]- 9010 Mar, [facility] [place] [facility] [address] [id number] [place] [address]- 9196 Feb, [facility] [place] [facility] [address] [id number] [place] [address]- 9566 Feb, [facility] [place] [facility] [address] [id number] [place] [address] Jan, [facility] [address] [id number] [address] Jan, [facility] [id number] [address] Jan, [facility] [address] [facility] [id number], [place] [address] Jan, [facility] [id number] [place] [address] Jan, [facility] [address] [facility] [id number], [place] [address] Jan, [facility] [id number] [place] [address] Jan, [facility] [id number] [address] Nov, [facility] [id number], [place] [address] Nov, [facility] [id number], [place] [address] Nov, [facility] [id number], [place] [address] Jul, IMMUNIZATIONS No Known Immunizations SOCIAL HISTORY Never Assessed REASON FOR VISIT Medication question PLAN OF CARE VITAL SIGNS MEDICATIONS No Known Medications RESULTS No Results PROCEDURES No Known [...] Surgical History cholecystectomy 1990 Surgical History pacemaker 2007 Surgical History pacemaker revision 2018 Hospitalization History Surgery(s) only
--- OUTSIDE RECORDS SUMMARY | 2018-03-08 10:05 | XMS REPORT ---
Author Author LUDMILA CARLITOS [facility] Address [address] [place] [address] Care Team Providers Care Fiber Design Engineer Name Role Phone CARLITOS KEYS Unavailable PROBLEMS Type Condition ICD9-CM Code [id number] Code Onset Dates Condition Status SNOMED Code Problem Dysthymia F34.1 Active 65429855 Problem Hyperglycemia R73.9 Active 52389488 Problem Hypertension, essential I10 Active 17937811 Problem Lumbar spondylolysis M43.06 Active 788969249 Problem Tobacco abuse counseling Z71.6 Active 071981511 Problem PAD (peripheral artery disease) I73.9 Active 734447356 Problem Mitral valve disorder I05.9 Active 71262037 Problem Tobacco abuse Z72.0 Active 997419956 Problem Pacemaker Z95.0 Active 623804133 Problem Anhedonia R45.84 Active 67665897 Problem Chronic obstructive pulmonary disease, unspecified COPD type J44.9 Active 77936549 Problem Pulmonary emphysema, unspecified emphysema type J43.9 Active 46133068 Problem Hyperlipidemia, unspecified hyperlipidemia E78.5 Active 36221168 Problem Lumbago with sciatica, right side M54.41 Active 778383260 Problem Coronary artery disease involving [place] coronary artery of [place] heart without angina pectoris I25.10 Active 4929550151273 Problem Other chronic pain G89.29 Active 52278879 ALLERGIES No Information ENCOUNTERS Encounter Location Date Diagnosis [facility] [address] [id number] [place] [id number] Sep, Urinary tract infection, site not specified N39.0 ; Acute right-sided low back pain, with sciatica presence unspecified M54.5 and Hematuria, unspecified R31.9 [facility] [address] [id number] [place] [id number] Sep, [place] [address] [facility] [address] [id number] [place] [id number] Sep, [facility] [address] [id number] [place] [id number] Sep, [facility] [id number] [place] [id number] Sep, [facility] [address] [id number] [place] [id number] Aug, [facility] [address] [facility] [id number], [place] [address] Aug, [facility] [address] [id number] [place] [id number] Aug, Lumbar spondylolysis M43.06 [facility] [address] [id number] [place] [address] Aug, Tobacco abuse Z72.0 [facility] [address] [id number] [place] [address] Aug, Chronic obstructive pulmonary disease, unspecified COPD type J44.9 ; Tobacco abuse Z72.0 ; Tobacco abuse counseling Z71.6 ; Lumbago with sciatica, right side M54.41 and Other chronic pain G89.29 [facility] [address] [id number] [place] [address] Aug, [facility] [address] [address] [id number] [place] [address] Aug, Hyperlipidemia, unspecified hyperlipidemia E78.5 ; Hypertension, essential I10 ; Pulmonary emphysema, unspecified emphysema type J43.9 ; Dysthymia F34.1 and Chronic obstructive pulmonary disease, unspecified COPD type J44.9 [facility] [address] [id number] [place] [address] June, Chest pain R07.9 ; Dyspnea on exertion R06.09 ; CAD (coronary artery disease) I25.10 ; Mitral valve disorder I05.9 ; Tobacco abuse Z72.0 ; Pacemaker Z95.0 ; PAD (peripheral artery disease) I73.9 and BMI 40.0-44.9, adult Z68.[address] [facility] [address] [id number] [place] [id number] June, Dysthymia F34.1 [facility] [address] [id number] [place] [address] Apr, [facility] [address] [id number] [place] [address] Apr, Coronary artery disease involving [place] coronary artery of [place] heart without angina pectoris I25.10 [facility] [address] [address] [id number] [place] [id number] Apr, [facility] [address] [id number] [place] [address] Apr, [facility] [address] [id number] [place] [address] Apr, [facility] [address] [id number] [place] [id number] Apr, Hyperglycemia R73.9 ; Chronic obstructive pulmonary disease, unspecified COPD type J44.9 ; Dysthymia F34.1 and BMI 40.0-44.9, adult Z68.41 [facility] [address] [id number] [place] [id number] Mar, Pulmonary emphysema, unspecified emphysema type J43.9 and Dysthymia F34.1 [facility] [id number] [place] [id number] Feb, Hyperlipidemia, unspecified hyperlipidemia E78.5 ; Hypertension, essential I10 ; Hyperglycemia R73.9 and Pulmonary emphysema, unspecified emphysema type J43.9 [facility] [address] [id number] [place] [id number] Feb, Pulmonary emphysema, unspecified emphysema type J43.9 ; Dysthymia F34.1 ; Lumbago with sciatica, right side M54.41 and Other chronic pain G89.29 [facility] [address] [id number] [place] [id number] Feb, [facility] [address] [facility] [id number] [place] [id number] Nov, [facility] [address] [id number] [place] [address] Nov, Chronic obstructive pulmonary disease, unspecified COPD type J44.9 ; Encounter for immunization Z23 ; Hyperlipidemia, unspecified hyperlipidemia E78.5 ; Coronary artery disease involving [place] coronary artery of [place] heart without angina pectoris I25.10 and Anhedonia R45.[address] [facility] [address] [id number] [place] [address] Jul, Coronary atherosclerosis of unspecified type of vessel, [place] or graft 414.00 ; Mixed hyperlipidemia 272.2 ; COPD (chronic obstructive pulmonary disease) 496 ; Obesity 278.00 and Bipolar disorder 296.[address] [facility] [address] [id number] [place] [address] June, Coronary atherosclerosis of unspecified type of vessel, [place] or graft 414.00 ; Mixed hyperlipidemia 272.2 ; Metabolic syndrome 277.7 ; COPD ( chronic obstructive pulmonary disease) 496 and Elevated liver enzymes 790.[address] [facility] [address] [id number] [place] [address] May, COPD with acute exacerbation 491.21 and Tobacco abuse 305.1 [facility] [address]005[address], [place] [address] May, [facility] [id number] [place] [address] 7536 May, [facility] [id number] [place] [address]- 8407 Apr, [facility] [id number] [place] [address]- 5925 Apr, [facility] [id number] [place] [address] 73432- 9597 Apr, [facility] [id number] [place] [address]- 5988 Apr, [facility] [place] [facility] [address] [id number] [place] [address]- 6[address] Feb, [facility] [place] [facility] [address] [id number] [place] [address]- 0021 Feb, [facility] [place] [facility] [address] [id number] [place] [address]- 8203 Feb, [facility] [place] [facility] [address] [id number] [place] [address]- 7086 Feb, [facility] [place] [facility] [address] [id number] [place] [address]- 1594 Dec, [facility] [place] [facility] [address] [id number] [place] [address]- 3174 Dec, [facility] [place] [facility] [address] [id number] [place] [address]- 8680 Nov, [facility] [place] [facility] [address] [id number] [address] 7440 Nov, [facility] [place] [facility] [address] [id number] [place] [address]- 0450 Nov, [facility] [place] [facility] [address] [id number], [place] [address] 4131 Nov, [facility] [place] [facility] [address] [id number], [place] [address] 16 Nov, 2012 [facility] [place] [facility] [address] [id number], [place] [address]- 5693 16 Nov, 2012 [facility] [place] [facility] [address] [id number] [place] [address]- 4194 Nov, [facility] [place] [facility] [address] [id number], [place] [address]- 0201 Nov, [facility] [place] [facility] [address] [id number] [place] [address]- 0877 08 Nov, 2012 [facility] [place] [facility] [address] [id number] [place] [address]- 0618 Aug, [facility] [address] [id number] [place] [address]- 2786 Aug, [facility] [place] [facility] [address] [id number] [place] [address]- 0526 Aug, [facility] [place] [facility] [address] [id number] [place] [address]- 0463 May, [facility] [place] [facility] [address] [id number] [place] [address]- 0510 May, [facility] [place] [facility] [address] [id number] [place] [address]- 7418 May, [facility] [place] [facility] [address] [id number] [place] [address]- 0360 May, [facility] [address] [id number] [place] [address]- 3771 May, [facility] [place] [facility] [address] [id number] [place] [address]- 5543 May, [facility] [place] [facility] [address] [id number] [place] [address]- 6583 May, [facility] [place] [facility] [address] [id number] [place] [address]- 7657 May, [facility] [place] [facility] [address] [id number] [place] [address]- 9197 Apr, [facility] [place] [facility] [address] [id number] [place] [address]- 2612 Mar, [facility] [place] [facility] [address] [id number] [place] [address]- 0523 Feb, [facility] [place] [facility] [address] [id number] [place] [address]- 6656 Feb, [facility] [place] [facility] [address] [id number] [place] [address]- 1366 Jan, [facility] [address] [id number], [place] [address] 8[address] Jan, [facility] [address]65100[place], [place] [address] Jan, [facility] [address] [facility] [id number] [address]- 07[address] Jan, [facility] [address] [place] [address]- 8553 Jan, [facility] [address] [facility] [id number], [place] [address]- 8[address] Jan, [facility] [address] [place] [address] 09964- 0895 Jan, [facility] [address]00565100[place], [place] [address]- 450[address] Nov, [facility] [address]65100[place], [place] [address]- 2467 Nov, [facility] [address]65100[place], [place] [address]- 5341 Nov, [facility] [address]65[address], [place] [address]- 2834 Jul, IMMUNIZATIONS No Known Immunizations SOCIAL HISTORY Never Assessed REASON FOR VISIT Test results PLAN OF CARE VITAL SIGNS MEDICATIONS No [...]
--- OUTSIDE RECORDS SUMMARY | 2018-03-08 10:05 | XMS REPORT ---
Author Author LUDMILA CARLITOS [facility] Address [address] [place] [address] Care Team Providers Care Assistant Portfolio Manager Name Role Phone CARLITOS KEYS Unavailable PROBLEMS Type Condition ICD9-CM Code VUE46-UX Code Onset Dates Condition Status SNOMED Code Problem Dysthymia F34.1 Active 05978337 Problem Hyperglycemia R73.9 Active 23601941 Problem Hypertension, essential I10 Active 41462219 Problem Lumbar spondylolysis M43.06 Active 407032411 Problem Tobacco abuse counseling Z71.6 Active 386512773 Problem PAD (peripheral artery disease) I73.9 Active 724128886 Problem Mitral valve disorder I05.9 Active 67385650 Problem Tobacco abuse Z72.0 Active 968817699 Problem Pacemaker Z95.0 Active 426858138 Problem Anhedonia R45.84 Active 74539807 Problem Chronic obstructive pulmonary disease, unspecified COPD type J44.9 Active 80617810 Problem Pulmonary emphysema, unspecified emphysema type J43.9 Active 59895212 Problem Hyperlipidemia, unspecified hyperlipidemia E78.5 Active 41104394 Problem Lumbago with sciatica, right side M54.41 Active 898536422 Problem Coronary artery disease involving [place] coronary artery of [place] heart without angina pectoris I25.10 Active 4324951363273 Problem Other chronic pain G89.29 Active 72910066 ALLERGIES No Information ENCOUNTERS Encounter Location Date Diagnosis [facility] [address] [id number] [place] [id number] Sep, Urinary tract infection, site not specified N39.0 ; Acute right-sided low back pain, with sciatica presence unspecified M54.5 and Hematuria, unspecified R31.9 [facility] [address] [id number] [place] [id number] Sep, [place] [place] [address] [id number] [address] Sep, [facility] [address] [id number] [place] [address] Sep, [facility] [address] [id number], [place] 125[address] Sep, [facility] [address] [address] [id number], [place] [id number] Aug, [facility] [address] [facility] [id number] [address] Aug, [facility] [address] [id number], [place] [id number] Aug, Lumbar spondylolysis M43.06 [facility] [address] [address] [id number], [place] [id number] Aug, Tobacco abuse Z72.0 [facility] [address] [id number], [place] [address] Aug, Chronic obstructive pulmonary disease, unspecified COPD type J44.9 ; Tobacco abuse Z72.0 ; Tobacco abuse counseling Z71.6 ; Lumbago with sciatica, right side M54.41 and Other chronic pain G89.29 [facility] [address] [address] [id number], [place] [id number] Aug, [facility] [address] [address] [id number], [place] [address] Aug, Hyperlipidemia, unspecified hyperlipidemia E78.5 ; Hypertension, essential I10 ; Pulmonary emphysema, unspecified emphysema type J43.9 ; Dysthymia F34.1 and Chronic obstructive pulmonary disease, unspecified COPD type J44.9 [facility] [address] [address] [id number], [place] [id number] June, Chest pain R07.9 ; Dyspnea on exertion R06.09 ; CAD (coronary artery disease) I25.10 ; Mitral valve disorder I05.9 ; Tobacco abuse Z72.0 ; Pacemaker Z95.0 ; PAD (peripheral artery disease) I73.9 and BMI 40.0-44.9, adult Z68.[address] [facility] [address] [id number], [place] [id number] June, Dysthymia F34.1 [facility] [address] [address] [id number], [place] [id number] Apr, [facility] [address] [address] [id number], [place] [id number] Apr, Coronary artery disease involving [place] coronary artery of [place] heart without angina pectoris I25.10 [facility] [address] [address] [id number], [place] [id number] Apr, [facility] [address] [address] [id number], [place] [id number] Apr, [facility] [address] [address] [id number], [place] [address]663981[address] Apr, [facility] [address] [id number], [place] [id number] Apr, Hyperglycemia R73.9 ; Chronic obstructive pulmonary disease, unspecified COPD type J44.9 ; Dysthymia F34.1 and BMI 40.0-44.9, adult Z68.41 [facility] [address] [id number], [place] [id number] Mar, Pulmonary emphysema, unspecified emphysema type J43.9 and Dysthymia F34.1 [facility] [address] [id number], [place] [id number] Feb, Hyperlipidemia, unspecified hyperlipidemia E78.5 ; Hypertension, essential I10 ; Hyperglycemia R73.9 and Pulmonary emphysema, unspecified emphysema type J43.9 [facility] [address] [id number], [place] [id number] Feb, Pulmonary emphysema, unspecified emphysema type J43.9 ; Dysthymia F34.1 ; Lumbago with sciatica, right side M54.41 and Other chronic pain G89.29 [facility] [address] [id number], [place] [address]572 Feb, [facility] [address] [facility] [address] [id number], [place] [address] Nov, [facility] [address] [id number], [place] [address] Nov, Chronic obstructive pulmonary disease, unspecified COPD type J44.9 ; Encounter for immunization Z23 ; Hyperlipidemia, unspecified hyperlipidemia E78.5 ; Coronary artery disease involving [place] coronary artery of [place] heart without angina pectoris I25.10 and Anhedonia R45.84 [facility] [address] [id number][place] [address] Jul, Coronary atherosclerosis of unspecified type of vessel, [place] or graft 414.00 ; Mixed hyperlipidemia 272.2 ; COPD (chronic obstructive pulmonary disease) 496 ; Obesity 278.00 and Bipolar disorder 296.80 [facility] [address] [id number], [place] [address] June, Coronary atherosclerosis of unspecified type of vessel, [place] or graft 414.00 ; Mixed hyperlipidemia 272.2 ; Metabolic syndrome 277.7 ; COPD ( chronic obstructive pulmonary disease) 496 and Elevated liver enzymes 790.5 [facility] [address] [id number], [place] 4208069[address] May, COPD with acute exacerbation 491.21 and Tobacco abuse 305.1 [facility] [address]100[place], [place] [address]- 4238 May, [facility] [id number] [place] [address]- 0121 May, [facility] [id number] [place] [address] 48608- 1197 Apr, [facility] [id number] [place] [address] 89521- 5653 Apr, [facility] [id number] [place] [address] 99883- 2467 Apr, [facility] [id number] [place] [address] 35082- 9779 Apr, [facility] [place] [facility] [address] [id number] [place] [address]- 8291 Feb, [facility] [place] [facility] [address] [id number] [place] [address]- 5302 Feb, [facility] [place] [facility] [address] [id number] [place] [address]- 9942 Feb, [facility] [place] [facility] [address] [id number] [place] [address]- 2416 Feb, [facility] [place] [facility] [address] [id number] [place] [address]- 3712 Dec, [facility] [place] [facility] [address] [id number] [place] [address]- 6240 Dec, [facility] [place] [facility] [address] [id number] [place] [address]- 2191 Nov, [facility] [place] [facility] [address] [id number][place] [address]- 7123 Nov, [facility] [place] [facility] [address] [id number] [place] [address]- 7324 Nov, [facility] [place] [facility] [address] [id number] [address]- 6187 Nov, [facility] [place] [facility] [address] [id number], [place] [address]- 1361 16 Nov, 2012 [facility] [place] [facility] [address] [id number][place] [address]- 3494 16 Nov, 2012 [facility] [place] [facility] [address] [id number] [place] [address]- 8154 Nov, [facility] [place] [facility] [address] [id number], [place] [address]- 8633 Nov, [facility] [place] [facility] [address] [id number] [place] [address]- 3695 08 Nov, 2012 [facility] [place] [facility] [address] [id number] [place] [address]- 9033 Aug, [facility] [address] [id number] [place] [address]- 1056 Aug, [facility] [place] [facility] [address] [id number] [place] [address]- 3816 Aug, [facility] [place] [facility] [address] [id number] [place] [address]- 3100 May, [facility] [place] [facility] [address] [id number] [place] [address]- 8502 May, [facility] [place] [facility] [address] [id number] [place] [address]- 2068 May, [facility] [place] [facility] [address] [id number] [place] [address]- 3701 May, [facility] [address] [id number] [place] [address]- 6160 May, [facility] [place] [facility] [address] [id number] [place] [address]- 5038 May, [facility] [place] [facility] [address] [id number] [place] [address]- 7578 May, [facility] [place] [facility] [address] [id number] [place] [address]- 0214 May, [facility] [place] [facility] [address] [id number] [place] [address]- 3293 Apr, [facility] [place] [facility] [address] [id number] [place] [address]- 5970 Mar, [facility] [place] [facility] [address] [id number] [place] [address]- 7598 Feb, [facility] [place] [facility] [address] [id number] [place] [address]- 6326 Feb, [facility] [place] [facility] [address] [id number] [place] [address]- 9801 Jan, [facility] [address] [id number] [address]- 7470 Jan, [facility] [address]65100[place], [place] [address]- 4120 Jan, [facility] [address]65100[place], [place] [address]- 9599 Jan, [facility] [address] [place] [address] 24314- 0004 Jan, [facility] [address] [facility] [id number][place] [address]- 6786 Jan, [facility] [address] [place] [address] 98192- 9226 Jan, [facility] [address]65100[place] [address]- 1932 Nov, [facility] [address] [place] [address] 06308- 9703 Nov, [facility] [address]65100[place] [address]- 6872 Nov, [facility] [address]65100[place], [place] [address]- 0103 Jul, IMMUNIZATIONS No Known Immunizations SOCIAL HISTORY Never Assessed REASON FOR VISIT Refill request PLAN OF CARE VITAL SIGNS MEDICATIONS Medication Instructions Dosage Frequency Start Date End Date Duration Status Chantix 0.5 MG Orally Once a day x 7 days then am and pm 0,5 tablet daily x 1 week then am and pm Aug, 30 day(s) Active RESULTS No Results PROCEDURES No Known procedures [...]
--- OUTSIDE RECORDS SUMMARY | 2018-03-08 10:05 | XMS REPORT ---
Author Author LDUMILA CARLITOS [facility] Address [address] [place] [address] Care Team Providers Care Farmworker Bulbs Name Role Phone CARLITOS KEYS Unavailable PROBLEMS Type Condition ICD9-CM Code RLD40-CZ Code Onset Dates Condition Status SNOMED Code Problem Dysthymia F34.1 Active 33229341 Problem Hyperglycemia R73.9 Active 77801660 Problem Hypertension, essential I10 Active 39412312 Problem Lumbar spondylolysis M43.06 Active 664931287 Problem Tobacco abuse counseling Z71.6 Active 846726173 Problem PAD (peripheral artery disease) I73.9 Active 191186622 Problem Mitral valve disorder I05.9 Active 37492882 Problem Tobacco abuse Z72.0 Active 188762011 Problem Pacemaker Z95.0 Active 202654327 Problem Anhedonia R45.84 Active 00666993 Problem Chronic obstructive pulmonary disease, unspecified COPD type J44.9 Active 58435866 Problem Pulmonary emphysema, unspecified emphysema type J43.9 Active 06799236 Problem Hyperlipidemia, unspecified hyperlipidemia E78.5 Active 29404254 Problem Lumbago with sciatica, right side M54.41 Active 775189037 Problem Coronary artery disease involving [place] coronary artery of [place] heart without angina pectoris I25.10 Active 8322136219944 Problem Other chronic pain G89.29 Active 91909214 ALLERGIES No Information ENCOUNTERS Encounter Location Date Diagnosis [facility] [address] [id number] [place] [id number] Sep, Urinary tract infection, site not specified N39.0 ; Acute right-sided low back pain, with sciatica presence unspecified M54.5 and Hematuria, unspecified R31.9 [facility] [address] [id number] [place] [id number] Sep, [place] [address] [facility] [address] [id number], [place] [address] Sep, [facility] [address] [id number] [place] [address] Sep, [facility] [address] [id number], [place] [address] Sep, [facility] [address] [id number][place] [id number] Aug, [facility] [address] [facility] [id number], [place] [address] Aug, [facility] [address] [id number], [place] [address] Aug, Lumbar spondylolysis M43.06 [facility] [address] [id number], [place] [address] Aug, Tobacco abuse Z72.0 [facility] [address] [id number][place] [address] Aug, Chronic obstructive pulmonary disease, unspecified COPD type J44.9 ; Tobacco abuse Z72.0 ; Tobacco abuse counseling Z71.6 ; Lumbago with sciatica, right side M54.41 and Other chronic pain G89.29 [facility] [address] [id number], [place] [id number] Aug, [facility] [address] [id number][place] [id number] Aug, Hyperlipidemia, unspecified hyperlipidemia E78.5 ; Hypertension, essential I10 ; Pulmonary emphysema, unspecified emphysema type J43.9 ; Dysthymia F34.1 and Chronic obstructive pulmonary disease, unspecified COPD type J44.9 [facility] [address] [id number], [place] [address] June, Chest pain R07.9 ; Dyspnea on exertion R06.09 ; CAD (coronary artery disease) I25.10 ; Mitral valve disorder I05.9 ; Tobacco abuse Z72.0 ; Pacemaker Z95.0 ; PAD (peripheral artery disease) I73.9 and BMI 40.0-44.9, adult Z68.[address] [facility] [address] [id number], [place] [id number] June, Dysthymia F34.1 [facility] [address] [id number], [place] [address] Apr, [facility] [address] [id number], [place] [address] Apr, Coronary artery disease involving [place] coronary artery of [place] heart without angina pectoris I25.10 [facility] [address] [id number], [place] [address] Apr, [facility] [address] [id number], [place] [address] Apr, [facility] [address] [id number], [place] 612[address]676 Apr, [facility] [address] [address] [id number], [place] [address] Apr, Hyperglycemia R73.9 ; Chronic obstructive pulmonary disease, unspecified COPD type J44.9 ; Dysthymia F34.1 and BMI 40.0-44.9, adult Z68.41 [facility] [address] [id number], [place] [address] Mar, Pulmonary emphysema, unspecified emphysema type J43.9 and Dysthymia F34.1 [facility] [address] [address] [id number], [place] [address] Feb, Hyperlipidemia, unspecified hyperlipidemia E78.5 ; Hypertension, essential I10 ; Hyperglycemia R73.9 and Pulmonary emphysema, unspecified emphysema type J43.9 [facility] [address] [address] [id number], [place] [address] Feb, Pulmonary emphysema, unspecified emphysema type J43.9 ; Dysthymia F34.1 ; Lumbago with sciatica, right side M54.41 and Other chronic pain G89.29 [facility] [address] [address] [id number], [place] [address] Feb, [facility] Andra [facility] [address] [id number], [place] [address] Nov, [facility] [address] [id number], [place] [address] Nov, Chronic obstructive pulmonary disease, unspecified COPD type J44.9 ; Encounter for immunization Z23 ; Hyperlipidemia, unspecified hyperlipidemia E78.5 ; Coronary artery disease involving [place] coronary artery of [place] heart without angina pectoris I25.10 and Anhedonia R45.84 [facility] [address] [id number], [place] [address] Jul, Coronary atherosclerosis of unspecified type of vessel, [place] or graft 414.00 ; Mixed hyperlipidemia 272.2 ; COPD (chronic obstructive pulmonary disease) 496 ; Obesity 278.00 and Bipolar disorder 296.80 [facility] [address] [id number], [place] [address] June, Coronary atherosclerosis of unspecified type of vessel, [place] or graft 414.00 ; Mixed hyperlipidemia 272.2 ; Metabolic syndrome 277.7 ; COPD ( chronic obstructive pulmonary disease) 496 and Elevated liver enzymes 790.5 [facility] [address] [id number], [place] [address] May, COPD with acute exacerbation 491.21 and Tobacco abuse 305.1 [facility] [address]00565100[place], [place] [address] May, [facility] [id number] [place] [address] 8913 May, [facility] [id number] [place] [address]- 0269 Apr, [facility] [id number] [place] [address] 9373 Apr, [facility] [id number] [place] [address]- 5236 Apr, [facility] [id number] [place] [address]- 1367 Apr, [facility] [place] [facility] [address] [id number] [place] [address] Feb, [facility] [place] [facility] [address] [id number] [place] [address] 3[address] Feb, [facility] [place] [facility] [address] [id number] [place] [address]- 3705 Feb, [facility] [place] [facility] [address] [id number] [place] [address]- 9406 Feb, [facility] [place] [facility] [address] [id number] [place] [address]- 0698 Dec, [facility] [place] [facility] [address] [id number] [place] [address] 7210 Dec, [facility] [place] [facility] [address] [id number] [place] [address]- 9533 Nov, [facility] [place] [facility] [address] [id number][place] [address] Nov, [facility] [place] [facility] [address] [id number] [place] [address] 9765 Nov, [facility] [place] [facility] [address] [id number], [place] [address] Nov, [facility] [place] [facility] [address] [id number], [place] [address] 8[address] 16 Nov, 2012 [facility] [place] [facility] [address] [id number], [place] [address]- [address] 16 Nov, 2012 [facility] [place] [facility] [address] [id number] [place] [address]- 9805 Nov, [facility] [place] [facility] [address] [id number], [place] [address]- 6[address] Nov, [facility] [place] [facility] [address] [id number] [place] [address]- [address]36 08 Nov, 2012 [facility] [place] [facility] [address] [id number] [place] [address]- 7892 Aug, [facility] [address] [id number] [place] [address]- 9716 Aug, [facility] [place] [facility] [address] [id number] [place] [address]- 6166 Aug, [facility] [place] [facility] [address] [id number] [place] [address]- 7467 May, [facility] [place] [facility] [address] [id number] [place] [address]- 5859 May, [facility] [place] [facility] [address] [id number] [place] [address] 4136 May, [facility] [place] [facility] [address] [id number] [place] [address]- 8499 May, [facility] [address] [id number] [place] [address]- 0482 May, [facility] [place] [facility] [address] [id number] [place] [address]- 5797 May, [facility] [place] [facility] [address] [id number] [place] [address]- 8284 May, [facility] [place] [facility] [address] [id number] [place] [address]- 7765 May, [facility] [place] [facility] [address] [id number] [place] [address]- 0831 Apr, [facility] [place] [facility] [address] [id number] [place] [address]- 4622 Mar, [facility] [place] [facility] [address] [id number] [place] [address]- 5535 Feb, [facility] [place] [facility] [address] [id number] [place] [address]- 1686 Feb, [facility] [place] [facility] [address] [id number] [place] [address]- 4280 Jan, [facility] [address] [id number], [place] [address]- 9417 Jan, [facility] [address] [facility] [id number][place] [address]- 0[address] Jan, [facility] [address] [facility] [id number][place] [address]- 1082 Jan, [facility] [address] [facility] [id number] [place] [address]- 1574 Jan, [facility] [address] [facility] [id number][place] [address] Jan, [facility] [id number] [place] [address]608- 2954 Jan, [facility] [address]00565100[place] [address] Nov, [facility] [address]00565100[place] [address] Nov, [facility] [address]00565100[place] [address]- 9[address] Nov, [facility] [address]00565100[place], [place] [address]179 Jul, IMMUNIZATIONS No Known Immunizations SOCIAL HISTORY Never Assessed REASON FOR VISIT Requests return call PLAN OF CARE VITAL SIGNS MEDICATIONS No [...]
--- OUTSIDE RECORDS SUMMARY | 2018-03-08 10:05 | XMS REPORT ---
Author Author LUDMILA CARLITOS [facility] Address [address] [place] [address] Care Team Providers Care Food Production Manager Name Role Phone CARLITOS KEYS Unavailable PROBLEMS Type Condition ICD9-CM Code DSQ43-VA Code Onset Dates Condition Status SNOMED Code Problem Dysthymia F34.1 Active 24538420 Problem Hyperglycemia R73.9 Active 71255393 Problem Hypertension, essential I10 Active 02557063 Problem Lumbar spondylolysis M43.06 Active 072169825 Problem Tobacco abuse counseling Z71.6 Active 067936059 Problem PAD (peripheral artery disease) I73.9 Active 356477406 Problem Mitral valve disorder I05.9 Active 85218870 Problem Tobacco abuse Z72.0 Active 758659934 Problem Pacemaker Z95.0 Active 485391859 Problem Anhedonia R45.84 Active 38171785 Problem Chronic obstructive pulmonary disease, unspecified COPD type J44.9 Active 93474916 Problem Pulmonary emphysema, unspecified emphysema type J43.9 Active 93657173 Problem Hyperlipidemia, unspecified hyperlipidemia E78.5 Active 84030867 Problem Lumbago with sciatica, right side M54.41 Active 176928689 Problem Coronary artery disease involving [place] coronary artery of [place] heart without angina pectoris I25.10 Active 0457904489240 Problem Other chronic pain G89.29 Active 92197543 ALLERGIES No Information ENCOUNTERS Encounter Location Date Diagnosis [facility] [address] [id number] [place] [id number] Sep, Urinary tract infection, site not specified N39.0 ; Acute right-sided low back pain, with sciatica presence unspecified M54.5 and Hematuria, unspecified R31.9 [facility] [address] [id number] [place] [id number] Sep, [place] [address] [facility] [address] [id number] [place] [address] Sep, [facility] [address] [id number] [place] [address] Sep, [facility] [address] [address] [id number] [place] [address] Sep, [facility] [address] [id number] [place] [id number] Aug[facility] [address] [facility] [id number] [address] Aug, [facility] [address] [id number] [place] [id number] Aug, Lumbar spondylolysis M43.06 [facility] [address] [id number] [place] [address] Aug, Tobacco abuse Z72.0 [facility] [address] [id number] [place] [address] Aug, Chronic obstructive pulmonary disease, unspecified COPD type J44.9 ; Tobacco abuse Z72.0 ; Tobacco abuse counseling Z71.6 ; Lumbago with sciatica, right side M54.41 and Other chronic pain G89.29 [facility] [address] [id number] [place] [id number] Aug, [facility] [address] [id number] [place] [address]38[address] Aug, Hyperlipidemia, unspecified hyperlipidemia E78.5 ; Hypertension, essential I10 ; Pulmonary emphysema, unspecified emphysema type J43.9 ; Dysthymia F34.1 and Chronic obstructive pulmonary disease, unspecified COPD type J44.9 [facility] [address] [id number] [place] [address] June, Chest pain R07.9 ; Dyspnea on exertion R06.09 ; CAD (coronary artery disease) I25.10 ; Mitral valve disorder I05.9 ; Tobacco abuse Z72.0 ; Pacemaker Z95.0 ; PAD (peripheral artery disease) I73.9 and BMI 40.0-44.9, adult Z68.[address] [facility] [address] [id number] [place] [address] June, Dysthymia F34.1 [facility] [address] [id number] [place] [id number] Apr, [facility] [address] [id number] [place] [address] Apr, Coronary artery disease involving [place] coronary artery of [place] heart without angina pectoris I25.10 [facility] [address] [id number] [place] [id number] Apr, [facility] [address] [id number] [place] [address] Apr, [facility] [address] [id number] [place] [id number] Apr, [facility] [address] [id number] [place] [address] Apr, Hyperglycemia R73.9 ; Chronic obstructive pulmonary disease, unspecified COPD type J44.9 ; Dysthymia F34.1 and BMI 40.0-44.9, adult Z68.41 [facility] [address] [id number] [place] [id number] Mar, Pulmonary emphysema, unspecified emphysema type J43.9 and Dysthymia F34.1 [facility] [address] [id number] [place] [address] Feb, Hyperlipidemia, unspecified hyperlipidemia E78.5 ; Hypertension, essential I10 ; Hyperglycemia R73.9 and Pulmonary emphysema, unspecified emphysema type J43.9 [facility] [address] [id number] [place] 412[address] Feb, Pulmonary emphysema, unspecified emphysema type J43.9 ; Dysthymia F34.1 ; Lumbago with sciatica, right side M54.41 and Other chronic pain G89.29 [facility] [address] [id number] [place] [id number] Feb, [facility] [address] [facility] [id number] [place] [address] Nov, [facility] [address] [id number] [place] [address] Nov, Chronic obstructive pulmonary disease, unspecified COPD type J44.9 ; Encounter for immunization Z23 ; Hyperlipidemia, unspecified hyperlipidemia E78.5 ; Coronary artery disease involving [place] coronary artery of [place] heart without angina pectoris I25.10 and Anhedonia R45.84 [facility] [address] [id number] [place] [address] Jul, Coronary atherosclerosis of unspecified type of vessel, [place] or graft 414.00 ; Mixed hyperlipidemia 272.2 ; COPD (chronic obstructive pulmonary disease) 496 ; Obesity 278.00 and Bipolar disorder 296.80 [facility] [address] [id number] [place] [address] June, Coronary atherosclerosis of unspecified type of vessel, white [place] or graft 414.00 ; Mixed hyperlipidemia 272.2 ; Metabolic syndrome 277.7 ; COPD ( chronic obstructive pulmonary disease) 496 and Elevated liver enzymes 790.5 [facility] [address] [id number] [place] [address] May, COPD with acute exacerbation 491.21 and Tobacco abuse 305.1 [facility] [address]00565100[place] [address]- 4357 May, [facility] [id number] [place] [address]655- 9863 May, [facility] [id number] [place] [address] 33906- 3985 Apr, [facility] [id number] [place] [address] 66955- 5014 Apr, [facility] [id number] [place] [address] 26277- 4228 Apr, [facility] [id number] [place] [address] 31960- 8492 Apr, [facility] [place] [facility] [address] [id number] [place] [address]- 4582 Feb, [facility] [place] [facility] [address] [id number] [place] [address]- 3750 Feb, [facility] [place] [facility] [address] [id number] [place] [address]- 4763 Feb, [facility] [place] [facility] [address] [id number] [place] [address]- 8251 Feb, [facility] [place] [facility] [address] [id number] [place] [address]- 4685 Dec, [facility] [place] [facility] [address] [id number] [place] [address]- 9337 Dec, [facility] [place] [facility] [address] [id number] [place] [address]- 5168 Nov, [facility] [place] [facility] [address] [id number] [place] [address]- 2377 Nov, [facility] [place] [facility] [address] [id number] [place] [address]- 0597 Nov, [facility] [place] [facility] [address] [id number] [address]- 6268 Nov, [facility] [place] [facility] [address] [id number] [address]- 6871 16 Nov, 2012 [facility] [place] [facility] [address] [id number] [place] [address]- 2473 16 Nov, 2012 [facility] [place] [facility] [address] [id number] [place] [address]- 0294 Nov, [facility] [place] [facility] [address] [id number] [place] [address]- 9993 Nov, [facility] [place] [facility] [address] [id number] [place] [address]- 1875 08 Nov, 2012 [facility] [place] [facility] [address] [id number] [place] [address]- 5912 Aug, [facility] [address] [id number] [place] [address]- 5646 Aug, [facility] [place] [facility] [address] [id number] [place] [address]- 9906 Aug, [facility] [place] [facility] [address] [id number] [place] [address]- 0224 May, [facility] [place] [facility] [address] [id number] [place] [address]- 4966 May, [facility] [place] [facility] [address] [id number] [place] [address]- 1624 May, [facility] [place] [facility] [address] [id number] [place] [address]- 6002 May, [facility] [address] [id number] [place] [address]- 5901 May, [facility] [place] [facility] [address] [id number] [place] [address]- 5792 May, [facility] [place] [facility] [address] [id number] [place] [address]- 1785 May, [facility] [place] [facility] [address] [id number] [place] [address]- 6464 May, [facility] [place] [facility] [address] [id number] [place] [address]- 6576 Apr, [facility] [place] [facility] [address] [id number] [place] [address]- 7935 Mar, [facility] [place] [facility] [address] [id number] [place] [address]- 6440 Feb, [facility] [place] [facility] [address] [id number] [place] [address]- 1556 Feb, [facility] [place] [facility] [address] [id number] [place] [address]- 6491 Jan, [facility] [address] [id number] [address]- 4249 Jan, [facility] [address] [facility] [id number] [place] [address] Jan, [facility] [place] [address] [facility] [id number] [address] Jan, [facility] [place] [address] [facility] [id number] [place] [id number] Jan, [facility] [place] [address] [facility] [id number] [place] [address] Jan, [facility] [place] [id number] [place] [id number] Jan, [facility] [place] [id number] [address] Nov, [facility] [place] [id number] [address] Nov, [facility] [place] [id number] [address] Nov, [facility] [place] [id number] [address] Jul, IMMUNIZATIONS No Known Immunizations SOCIAL HISTORY Never Assessed REASON FOR VISIT LATASHA schwarz PLAN OF CARE VITAL SIGNS MEDICATIONS No [...]
--- OUTSIDE RECORDS SUMMARY | 2018-03-08 10:06 | XMS REPORT ---
Author Author CARLITOS KEYS [facility] Address [address] [place] [address] Care Team Providers Care Deep Fat Cook Fry Name Role Phone CARLITOS KEYS Unavailable PROBLEMS Type Condition ICD9-CM Code OBS24-YL Code Onset Dates Condition Status SNOMED Code Problem Dysthymia F34.1 Active 22800760 Problem Hyperglycemia R73.9 Active 95399412 Problem Hypertension, essential I10 Active 81615354 Problem Lumbar spondylolysis M43.06 Active 510516228 Problem Tobacco abuse counseling Z71.6 Active 202522593 Problem PAD (peripheral artery disease) I73.9 Active 011357578 Problem Mitral valve disorder I05.9 Active 79690117 Problem Tobacco abuse Z72.0 Active 529054947 Problem Pacemaker Z95.0 Active 022904538 Problem Anhedonia R45.84 Active 57529297 Problem Chronic obstructive pulmonary disease, unspecified COPD type J44.9 Active 47302374 Problem Pulmonary emphysema, unspecified emphysema type J43.9 Active 50402231 Problem Hyperlipidemia, unspecified hyperlipidemia E78.5 Active 89922717 Problem Lumbago with sciatica, right side M54.41 Active 396318296 Problem Coronary artery disease involving mes[place] coronary artery of mes[place] grande heart without angina pectoris I25.10 Active 0625714054865 Problem Other chronic pain G89.29 Active 38678158 ALLERGIES Substance Reaction Event Type Date Status [place] (Diagnostic) hives Drug Allergy Aug, Active Morphine Sulfate violent behavior Drug Allergy Aug, Active ENCOUNTERS Encounter Location Date Diagnosis [facility] [address] [id number] [id number] Sep, Urinary tract infection, site not specified N39.0 ; Acute right-sided low back pain, with sciatica presence unspecified M54.5 and Hematuria, unspecified R31.9 [facility] [address] [facility] [address] [id number] [id number] Sep, [facility] [address] [id number] [place] [id number] Sep, [facility] [address] [id number][place] [id number] Sep, [facility] [address] [id number][place] [id number] Sep, [facility] [address] [id number][place] [id number] Aug, [facility] [place] [address] [facility] [id number] [place] [address] Aug, [facility] [address] [id number], [place] [id number] Aug, Lumbar spondylolysis M43.06 [facility] [address] [id number], [place] [id number] Aug, Tobacco abuse Z72.0 [facility] [address] [id number], [place] [id number] Aug, Chronic obstructive pulmonary disease, unspecified COPD type J44.9 ; Tobacco abuse Z72.0 ; Tobacco abuse counseling Z71.6 ; Lumbago with sciatica, right side M54.41 and Other chronic pain G89.29 [facility] [address] [id number][place] [address] Aug, [facility] [address] [id number], [place] [address] Aug, Hyperlipidemia, unspecified hyperlipidemia E78.5 ; Hypertension, essential I10 ; Pulmonary emphysema, unspecified emphysema type J43.9 ; Dysthymia F34.1 and Chronic obstructive pulmonary disease, unspecified COPD type J44.9 [facility] [address] [id number][place] [id number] June, Chest pain R07.9 ; Dyspnea on exertion R06.09 ; CAD (coronary artery disease) I25.10 ; Mitral valve disorder I05.9 ; Tobacco abuse Z72.0 ; Pacemaker Z95.0 ; PAD (peripheral artery disease) I73.9 and BMI 40.0-44.9, adult Z68.41 [facility] [address] [id number], [place] [id number] June, Dysthymia F34.1 [facility] [address] [id number] [place] [id number] Apr, [facility] [address] [id number], [place] [id number] Apr, Coronary artery disease involving mes[place] coronary artery of [place] heart without angina pectoris I25.10 [facility] [address] [id number], [place] [id number] Apr, [facility] [address] [id number], [place] [id number] Apr, [facility]AhometoL[facility] [address] [id number], [place] [id number] Apr, [facility] [address] [facility] [id number], [place] [id number] Apr, Hyperglycemia R73.9 ; Chronic obstructive pulmonary disease, unspecified COPD type J44.9 ; Dysthymia F34.1 and BMI 40.0-44.9, adult Z68.41 [facility] [address] [id number], [place] [id number] Mar, Pulmonary emphysema, unspecified emphysema type J43.9 and Dysthymia F34.1 [facility] [address] [id number], [place] [id number] Feb, Hyperlipidemia, unspecified hyperlipidemia E78.5 ; Hypertension, essential I10 ; Hyperglycemia R73.9 and Pulmonary emphysema, unspecified emphysema type J43.9 [facility] 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 [address] [employer] [id number], [place] [id number] Feb, Pulmonary emphysema, unspecified emphysema type J43.9 ; Dysthymia F34.1 ; Lumbago with sciatica, right side M54.41 and Other chronic pain G89.29 [facility] [address] [facility] [address] [id number], [place] [id number] Feb, [facility] [address] [facility] [id number], [place] [id number] Nov, [facility] S[facility] [id number], [place] [id number] Nov, Chronic obstructive pulmonary disease, unspecified COPD type J44.9 ; Encounter for immunization Z23 ; Hyperlipidemia, unspecified hyperlipidemia E78.5 ; Coronary artery disease involving mesa grande coronary artery of mes[place] heart without angina pectoris I25.10 and Anhedonia R45.84 [facility] [place] [address] [place] [address] [id number], [place] [id number] Jul, Coronary atherosclerosis of unspecified type of vessel, mesa grande or graft 414.00 ; Mixed hyperlipidemia 272.2 ; COPD (chronic obstructive pulmonary disease) 496 ; Obesity 278.00 and Bipolar disorder 296.[address] [facility] [address] [place] [address] [id number], [place] [id number] June, Coronary atherosclerosis of unspecified type of vessel, mesa grande or graft 414.00 ; Mixed hyperlipidemia 272.2 ; Metabolic syndrome 277.7 ; COPD ( chronic obstructive pulmonary disease) 496 and Elevated liver enzymes 790.5 [facility] [address]imes[address] [place] [address] [id number], [place] [id number] May, COPD with acute exacerbation 491.21 and Tobacco abuse 305.1 [facility] [address] [place] [id number] May, [facility] [id number] [place] [address] May, [facility] [id number] [place] [id number] Apr, [facility] [id number] [place] [id number] Apr, [facility] [id number] [place] [id number] Apr, [facility] [place] [facility] [address] [id number] [place] [address] Apr, [facility] [place] [facility] [address] [id number] [place] [address] Feb, [facility] [place] [facility] [address] [id number] [place] [address] Feb, [facility] [place] [facility] [address] [id number] [place] [address] Feb, [facility] [place] [facility] [address] [id number] [place] [address] Feb, [facility] [place] [facility] [address] [id number] [place] [address] Dec, [facility] [place] [facility] [address] [id number] [place] [address] Dec, [facility] [place] [facility] [address] [id number], [place] [address] Nov, [facility] [place] [facility] [address] [id number] [place] [address] 23 Nov, 2012 [facility] [place] [facility] [address] [id number], [place] [address] 18 Nov, 2012 [facility] [place] [facility] [address] [id number][place] [address] 18 Nov, 2012 [facility] [place] [facility] [address] [id number], [place] [address] 16 Nov, 2012 [facility] [place] [facility] [address] [id number], [place] [address] 16 Nov, 2012 [facility] [place] [facility] [address] [id number], [place] [address]- [address] 11 Nov, 2012 [facility] [place] [facility] [address] [id number], [place] [address] 11 Nov, 2012 [facility] [place] [facility] [address] [id number] [address] Nov, [facility] [address] [id number] [place] [address] Aug, [facility] [place] [facility] [address] [id number] [place] [address] Aug, [facility] [address] [id number] [place] [address] Aug, [facility] [place] [facility] [address] [id number] [place] [address] May, [facility] [address] [id number] [place] [address] May, [facility] [address] [id number] [place] [address] May, [facility] [address] [id number] [place] [address] May, [facility] [place] [facility] [address] [id number] [place] [address] 45[address] May, [facility] [address] [id number] [place] [address] May, [facility] [place] [facility] [address] [id number] [place] [address]- [address] May, [facility] [place] [facility] [address] [id number] [place] [address] 89[address] May, [facility] [place] [facility] [address] [id number] [place] [address] Apr, [facility] [place] [facility] [address] [id number] [place] [address] Mar, [facility] [place] [facility] [address] [id number] [place] [address]- [address] Feb, [facility] [place] [facility] [address] [id number] [place] [address]- [address] Feb, [facility] [place] [facility] [address] [id number], [place] [address] Jan, [facility] [address] [facility] [id number], [place] [address] Jan, [facility] [address] [facility] [id number], [place] [address] Jan, [facility] [address] [facility] [id number][place] [address] Jan, [facility] [address] [facility] [id number], [place] [address] Jan, [facility] [address]65100[place], [place] [address] Jan, [facility] [address]00565100[place], [place] [address] Jan, [facility] [address]00565100[place], [place] [address] Nov, [facility] [address]00565100[place], [place] [address] Nov, [facility] [address]00565100[place], [place] [address] Nov, [facility] [address] [id number], [place] [address] Jul, IMMUNIZATIONS No Known Immunizations SOCIAL HISTORY Never Assessed REASON FOR VISIT Smoking BFERRISMA PLAN OF CARE Activity Details Follow Up 6 Weeks Reason:smoking follow up VITAL SIGNS Height 60 in 2017-08-24 Weight 204.5 lbs 2017-08-24 Temperature 98.6 degrees Fahrenheit 2017-08-24 Heart Rate 88 bpm 2017-08-24 Respiratory Rate 18 2017-08-24 Oximetry 96 % 2017-08-24 BMI 39.93 kg/m2 2017-08-24 Blood pressure systolic 132 mmHg 2017-08-24 Blood pressure diastolic 73 mmHg 2017-08-24 MEDICATIONS Medication Instructions Dosage Frequency Start Date End Date Duration Status Lisinopril 10 mg Orally Once a day 1 tablet 24h Feb, 180 days Active Spiriva HandiHaler 18 MCG Inhalation Once a day 1 capsule 24h Feb, Active Cymbalta 30 MG Orally Once a day 2 capsule 24h Feb, 30 day(s) Active HydrOXYzine HCl 25 MG Orally 2 times a day 1 tablet as needed for anxiety 12h Apr, 30 day(s) Active Aspirin 81 MG Orally Once a day 1 tablet 24h June, 30 day(s) Active Proventil HFA 108 (90 Base) MCG/ACT Inhalation 4 times a day 2 puffs as needed for wheezing/cough 6h Feb, Active Celebrex 100 mg Orally Once a day 1-2 capsule with food as needed for pain 24h Feb, Not-Taking Mucinex Not-Taking Atorvastatin Calcium 10 mg Orally Once a day 1 tablet 24h Feb, 90 days Active Aspirin 81 MG Orally Once a day 24h Not-Taking Chantix 0.5 MG Orally Once a day x 7 days then am and pm 0,5 tablet daily x 1 week then am and pm Aug, Nov, 30 day(s) Active RESULTS Name Result Date Reference Range Xray : Spine, Lumbar 2-3 views 2017-09-01 PROCEDURES Procedure Date Ordered Result Body Site PULMONARY FUNCTION TEST 2017-08-24 N/A INSTRUCTIONS MEDICATIONS ADMINISTERED No Known Medications MEDICAL [...]
--- OUTSIDE RECORDS SUMMARY | 2018-03-08 10:06 | XMS REPORT ---
Author Author LUDMILA CARLITOS [facility] Address [address] [place] [address] Care Team Providers Care Sports Medicine Specialist Name Role Phone CARLITOS KEYS Unavailable PROBLEMS Type Condition ICD9-CM Code DMT70-CW Code Onset Dates Condition Status SNOMED Code Problem Dysthymia F34.1 Active 52829191 Problem Hyperglycemia R73.9 Active 63315546 Problem Hypertension, essential I10 Active 24847565 Problem Lumbar spondylolysis M43.06 Active 399622970 Problem Tobacco abuse counseling Z71.6 Active 972200173 Problem PAD (peripheral artery disease) I73.9 Active 895451247 Problem Mitral valve disorder I05.9 Active 96879126 Problem Tobacco abuse Z72.0 Active 488753854 Problem Pacemaker Z95.0 Active 409057915 Problem Anhedonia R45.84 Active 34693466 Problem Chronic obstructive pulmonary disease, unspecified COPD type J44.9 Active 03143989 Problem Pulmonary emphysema, unspecified emphysema type J43.9 Active 00740247 Problem Hyperlipidemia, unspecified hyperlipidemia E78.5 Active 93551218 Problem Lumbago with sciatica, right side M54.41 Active 343982250 Problem Coronary artery disease involving ek[place] coronary artery of ek[place] heart without angina pectoris I25.10 Active 5680119468983 Problem Other chronic pain G89.29 Active 69425156 ALLERGIES No Information ENCOUNTERS Encounter Location Date Diagnosis [facility] [address] [id number] [place] [id number] Sep, Urinary tract infection, site not specified N39.0 ; Acute right-sided low back pain, with sciatica presence unspecified M54.5 and Hematuria, unspecified R31.9 [facility] [address] [id number] [place] [address] Sep, [place] [address] [facility] [address] [id number], [place] [address] Sep, [facility] [address] [id number] [place] [address] Sep, [facility] [address] [id number], [place] [address] Sep, [facility] [address] [id number], [place] [id number] Aug, [facility] [address] [facility] [id number] [address] Aug, [facility] [address] [id number], [place] [id number] Aug, Lumbar spondylolysis M43.06 [facility] [address] [id number], [place] [address] Aug, Tobacco abuse Z72.0 [facility] [address] [id number], [place] [address] Aug, Chronic obstructive pulmonary disease, unspecified COPD type J44.9 ; Tobacco abuse Z72.0 ; Tobacco abuse counseling Z71.6 ; Lumbago with sciatica, right side M54.41 and Other chronic pain G89.29 [facility] [address] [id number], [place] [address] Aug, [facility] [address] [id number], [place] [address] Aug, Hyperlipidemia, unspecified hyperlipidemia E78.5 ; Hypertension, essential I10 ; Pulmonary emphysema, unspecified emphysema type J43.9 ; Dysthymia F34.1 and Chronic obstructive pulmonary disease, unspecified COPD type J44.9 [facility] [address] [id number], [place] [address] June, Chest pain R07.9 ; Dyspnea on exertion R06.09 ; CAD (coronary artery disease) I25.10 ; Mitral valve disorder I05.9 ; Tobacco abuse Z72.0 ; Pacemaker Z95.0 ; PAD (peripheral artery disease) I73.9 and BMI 40.0-44.9, adult Z68.[address] [facility] [address] [id number], [place] [id number] June, Dysthymia F34.1 [facility] [address] [id number], [place] [id number] Apr, [facility] [address] [id number], [place] [address] Apr, Coronary artery disease involving [place] coronary artery of [place] heart without angina pectoris I25.10 [facility] [address] [id number], [place] [id number] Apr, [facility] [address] [id number], [place] [id number] Apr, [facility] [address] [id number], [place] [address]57[address] Apr, [facility] [address] [id number], [place] [id number] Apr, Hyperglycemia R73.9 ; Chronic obstructive pulmonary disease, unspecified COPD type J44.9 ; Dysthymia F34.1 and BMI 40.0-44.9, adult Z68.41 [facility] [address] [id number], [place] [id number] Mar, Pulmonary emphysema, unspecified emphysema type J43.9 and Dysthymia F34.1 [facility] [address] [id number], [place] [address] Feb, Hyperlipidemia, unspecified hyperlipidemia E78.5 ; Hypertension, essential I10 ; Hyperglycemia R73.9 and Pulmonary emphysema, unspecified emphysema type J43.9 [facility] [address] [id number], [place] [id number] Feb, Pulmonary emphysema, unspecified emphysema type J43.9 ; Dysthymia F34.1 ; Lumbago with sciatica, right side M54.41 and Other chronic pain G89.29 [facility] [address] [address] [id number], [place] [address] Feb, [facility] Andra [facility] [address] [id number], [place] [address] Nov, [facility] [address] [id number], [place] [address] Nov, Chronic obstructive pulmonary disease, unspecified COPD type J44.9 ; Encounter for immunization Z23 ; Hyperlipidemia, unspecified hyperlipidemia E78.5 ; Coronary artery disease involving ek[place] coronary artery of ek[place] heart without angina pectoris I25.10 and Anhedonia R45.84 [facility] [address] [id number], [place] [address] Jul, Coronary atherosclerosis of unspecified type of vessel, ek[place] or graft 414.00 ; Mixed hyperlipidemia 272.2 ; COPD (chronic obstructive pulmonary disease) 496 ; Obesity 278.00 and Bipolar disorder 296.80 [facility] [address] [id number], [place] [address] June, Coronary atherosclerosis of unspecified type of vessel, ek[place] or graft 414.00 ; Mixed hyperlipidemia 272.2 ; Metabolic syndrome 277.7 ; COPD ( chronic obstructive pulmonary disease) 496 and Elevated liver enzymes 790.5 [facility] [address] [id number], [place] [address] May, COPD with acute exacerbation 491.21 and Tobacco abuse 305.1 [facility] [address]00565100[place] [address] May, [facility] [id number] [place] [address] May, [facility] [id number] [place] [address]- 4990 Apr, [facility] [id number] [place] [address]- 7548 Apr, [facility] [id number] [place] [address]- 2936 Apr, [facility] [id number] [place] [address]- 2299 Apr, [facility] [place] [facility] [address] [id number] [place] [address] Feb, [facility] [place] [facility] [address] [id number] [place] [address]- [address] Feb, [facility] [place] [facility] [address] [id number] [place] [address]- 2800 Feb, [facility] [place] [facility] [address] [id number] [place] [address]- 6242 Feb, [facility] [place] [facility] [address] [id number] [place] [address]- 3863 Dec, [facility] [place] [facility] [address] [id number] [place] [address]- 8240 Dec, [facility] [place] [facility] [address] [id number] [place] [address]- 2218 Nov, [facility] [place] [facility] [address] [id number], [place] [address] Nov, [facility] [place] [facility] [address] [id number] [place] [address]- [address] Nov, [facility] [place] [facility] [address] [id number], [place] [address] Nov, [facility] [place] [facility] [address] [id number], [place] [address] 16 Nov, 2012 [facility] [place] [facility] [address] [id number], [place] [address] 16 Nov, 2012 [facility] [place] [facility] [address] [id number] [place] [address]- 76[address] Nov, [facility] [place] [facility] [address] [id number] [address]- [address] Nov, [facility] [place] [facility] [address] [id number] [place] [address]- [address] 08 Nov, 2012 [facility] [place] [facility] [address] [id number] [place] [address] 6[address] Aug, [facility] [address] [id number] [place] [address]- 7696 Aug, [facility] [place] [facility] [address] [id number] [place] [address] 3[address] Aug, [facility] [place] [facility] [address] [id number] [place] [address]- 3321 May, [facility] [place] [facility] [address] [id number] [place] [address]- 9300 May, [facility] [place] [facility] [address] [id number] [place] [address]- 7555 May, [facility] [place] [facility] [address] [id number] [place] [address]- 4053 May, [facility] [address] [id number] [place] [address]- 2991 May, [facility] [place] [facility] [address] [id number] [place] [address]- 3637 May, [facility] [place] [facility] [address] [id number] [place] [address]- 4304 May, [facility] [place] [facility] [address] [id number] [place] [address]- 2232 May, [facility] [place] [facility] [address] [id number] [place] [address]- 0833 Apr, [facility] [place] [facility] [address] [id number] [place] [address]- 69[address] Mar, [facility] [place] [facility] [address] [id number] [place] [address]- 5091 Feb, [facility] [place] [facility] [address] [id number] [place] [address]- 8636 Feb, [facility] [place] [facility] [address] [id number] [place] [address]- 2611 Jan, [facility] [address] [id number] [address] Jan, [facility] [address] [facility] [id number] [address]- [address] Jan, [facility] [address] [facility] [id number] [address]- 0770 Jan, [facility] [address] [facility] [id number] [place] [address]- 9658 Jan, [facility] [address] [facility] [id number] [address]- 265[address] Jan, [facility] [address] [facility] [id number] [place] [address]93- 9163 Jan, [facility] [address]00565100[place] [address] Nov, [facility] [address]65100[place] [address]- [address]77 Nov, [facility] [address]65100[place] [address] 7[address] Nov, [facility] [address]65100[place] [address] Jul, IMMUNIZATIONS No Known Immunizations SOCIAL HISTORY Never Assessed REASON FOR VISIT Re:RE:New Refill Request PLAN OF CARE VITAL SIGNS MEDICATIONS No [...] History pacemaker 2006 Surgical History pacemaker revision 2018 Hospitalization History Surgery(s) only
--- OUTSIDE RECORDS SUMMARY | 2018-03-08 10:06 | XMS REPORT ---
Author Author LUDMILA CARLITOS [facility] Address [address] [place] [address] Care Team Providers Care Compressor Station Engineer Chief Name Role Phone CARLITOS KEYS Unavailable PROBLEMS Type Condition ICD9-CM Code GMF34-KT Code Onset Dates Condition Status SNOMED Code Problem Dysthymia F34.1 Active 34905048 Problem Hyperglycemia R73.9 Active 70481896 Problem Hypertension, essential I10 Active 71027821 Problem Lumbar spondylolysis M43.06 Active 993301680 Problem Tobacco abuse counseling Z71.6 Active 459329406 Problem PAD (peripheral artery disease) I73.9 Active 940343372 Problem Mitral valve disorder I05.9 Active 11338959 Problem Tobacco abuse Z72.0 Active 099137454 Problem Pacemaker Z95.0 Active 770898959 Problem Anhedonia R45.84 Active 87611290 Problem Chronic obstructive pulmonary disease, unspecified COPD type J44.9 Active 79136945 Problem Pulmonary emphysema, unspecified emphysema type J43.9 Active 21457057 Problem Hyperlipidemia, unspecified hyperlipidemia E78.5 Active 60464511 Problem Lumbago with sciatica, right side M54.41 Active 333663568 Problem Coronary artery disease involving [place] coronary artery of [place] heart without angina pectoris I25.10 Active 3978817238996 Problem Other chronic pain G89.29 Active 67099134 ALLERGIES No Information ENCOUNTERS Encounter Location Date Diagnosis [facility] [address] [id number] [place] [id number] Sep, Urinary tract infection, site not specified N39.0 ; Acute right-sided low back pain, with sciatica presence unspecified M54.5 and Hematuria, unspecified R31.9 [facility] [address] [id number] [place] [id number] Sep, [place] [address] [facility] [address] [id number], [place] [id number] Sep, [facility] [address] [id number] [place] [address] Sep, [facility] [address] [id number], [place] [address] Sep, [facility] [address] [id number], [place] [id number] Aug, [facility] [address] [facility] [id number], [place] [address] Aug, [facility] [address] [id number], [place] [address] Aug, Lumbar spondylolysis M43.06 [facility] [address] [id number], [place] [address] Aug, Tobacco abuse Z72.0 [facility] [address] [id number], [place] [address] Aug, Chronic obstructive pulmonary disease, unspecified COPD type J44.9 ; Tobacco abuse Z72.0 ; Tobacco abuse counseling Z71.6 ; Lumbago with sciatica, right side M54.41 and Other chronic pain G89.29 [facility] [address] [id number], [place] [address] Aug, [facility] [address] [id number], [place] [address] Aug, Hyperlipidemia, unspecified hyperlipidemia E78.5 ; Hypertension, essential I10 ; Pulmonary emphysema, unspecified emphysema type J43.9 ; Dysthymia F34.1 and Chronic obstructive pulmonary disease, unspecified COPD type J44.9 [facility] [address] [id number], [place] [address]367148 June, Chest pain R07.9 ; Dyspnea on exertion R06.09 ; CAD (coronary artery disease) I25.10 ; Mitral valve disorder I05.9 ; Tobacco abuse Z72.0 ; Pacemaker Z95.0 ; PAD (peripheral artery disease) I73.9 and BMI 40.0-44.9, adult Z68.[address] [facility] [address] [id number], [place] [address] June, Dysthymia F34.1 [facility] [address] [id number], [place] [address] Apr, [facility] [address] [id number], [place] [id number] Apr, Coronary artery disease involving [place] coronary artery of [place] heart without angina pectoris I25.10 [facility] [address] [id number], [place] [address] Apr, [facility] [address] [id number], [place] 9[address]651 Apr, [facility] [address] [id number], [place] [address] Apr, [facility] [address] [id number], [place] [address] Apr, Hyperglycemia R73.9 ; Chronic obstructive pulmonary disease, unspecified COPD type J44.9 ; Dysthymia F34.1 and BMI 40.0-44.9, adult Z68.41 [facility] [address] [id number], [place] 820[address] Mar, Pulmonary emphysema, unspecified emphysema type J43.9 and Dysthymia F34.1 [facility] [address] [id number], [place] [address] Feb, Hyperlipidemia, unspecified hyperlipidemia E78.5 ; Hypertension, essential I10 ; Hyperglycemia R73.9 and Pulmonary emphysema, unspecified emphysema type J43.9 [facility] [address] [id number], [place] [address] Feb, Pulmonary emphysema, unspecified emphysema type J43.9 ; Dysthymia F34.1 ; Lumbago with sciatica, right side M54.41 and Other chronic pain G89.29 [facility] [address] [id number], [place] [address] Feb, [facility] Andra [facility] [address] [id number], [place] [address] Nov, [facility] [address] [id number], [place] [address] Nov, Chronic obstructive pulmonary disease, unspecified COPD type J44.9 ; Encounter for immunization Z23 ; Hyperlipidemia, unspecified hyperlipidemia E78.5 ; Coronary artery disease involving [place] coronary artery of [place] heart without angina pectoris I25.10 and Anhedonia R45.84 [facility] [address] [id number], [place] [address] Jul, Coronary atherosclerosis of unspecified type of vessel, [place] or graft 414.00 ; Mixed hyperlipidemia 272.2 ; COPD (chronic obstructive pulmonary disease) 496 ; Obesity 278.00 and Bipolar disorder 296.80 [facility] [address] [id number], [place] [address] June, Coronary atherosclerosis of unspecified type of vessel, [place] or graft 414.00 ; Mixed hyperlipidemia 272.2 ; Metabolic syndrome 277.7 ; COPD ( chronic obstructive pulmonary disease) 496 and Elevated liver enzymes 790.5 [facility] [address] [id number], [place] [address] May, COPD with acute exacerbation 491.21 and Tobacco abuse 305.1 [facility] [address]00565100[place], [place] [address]- [address] May, [facility] [id number] [place] [address]506- 8358 May, [facility] [id number] [place] [address] 76002- 9393 Apr, [facility] [id number] [place] [address] 66565- 0241 Apr, [facility] [id number] [place] [address] 42126- 2607 Apr, [facility] [id number] [place] [address] 22634- 1005 Apr, [facility] [place] [facility] [address] [id number] [place] [address]- 5656 Feb, [facility] [place] [facility] [address] [id number] [place] [address]- 3094 Feb, [facility] [place] [facility] [address] [id number] [place] [address]- 4743 Feb, [facility] [place] [facility] [address] [id number] [place] [address]- 1564 Feb, [facility] [place] [facility] [address] [id number] [place] [address]- 5187 Dec, [facility] [place] [facility] [address] [id number] [place] [address]- 8120 Dec, [facility] [place] [facility] [address] [id number] [place] [address]- 0913 Nov, [facility] [place] [facility] [address] [id number], [place] [address]- 9555 Nov, [facility] [place] [facility] [address] [id number] [place] [address]- 7044 Nov, [facility] [place] [facility] [address] [id number], [place] [address]- 6537 Nov, [facility] [place] [facility] [address] [id number], [place] [address]- 8645 16 Nov, 2012 [facility] [place] [facility] [address] [id number], [place] [address]- 6759 16 Nov, 2012 [facility] [place] [facility] [address] [id number] [place] [address]- 3979 Nov, [facility] [place] [facility] [address] [id number], [place] [address]- 8547 Nov, [facility] [place] [facility] [address] [id number] [place] [address]- 2373 08 Nov, 2012 [facility] [place] [facility] [address] [id number] [place] [address]- 3835 Aug, [facility] [address] [id number] [place] [address]- 1976 Aug, [facility] [place] [facility] [address] [id number] [place] [address]- 5396 Aug, [facility] [place] [facility] [address] [id number] [place] [address]- 8635 May, [facility] [place] [facility] [address] [id number] [place] [address]- 0868 May, [facility] [place] [facility] [address] [id number] [place] [address]- 8982 May, [facility] [place] [facility] [address] [id number] [place] [address]- 5910 May, [facility] [address] [id number] [place] [address]- 6561 May, [facility] [place] [facility] [address] [id number] [place] [address]- 0015 May, [facility] [place] [facility] [address] [id number] [place] [address]- 1229 May, [facility] [place] [facility] [address] [id number] [place] [address]- 9057 May, [facility] [place] [facility] [address] [id number] [place] [address]- 0389 Apr, [facility] [place] [facility] [address] [id number] [place] [address]- 1150 Mar, [facility] [place] [facility] [address] [id number] [place] [address]- 1027 Feb, [facility] [place] [facility] [address] [id number] [place] [address]- 9686 Feb, [facility] [place] [facility] [address] [id number] [place] [address]- 6293 Jan, [facility] [address] [facility] [place] [id number], [place] [address] Jan, [facility] [address] [facility] [place] [place] [id number], [place] [address] Jan, [facility] [address] [facility] [place] [id number], [place] [address] Jan, [facility] [address] [facility] [place] [id number], [place] [address] Jan, [facility] [address] [facility] [place] [id number], [place] [address] Jan, [facility] [address] [facility] [place] [id number], [place] [address] Jan, [facility] [address] [id number], [place] [address] Nov, [facility] [id number], [place] [address] Nov, [facility] [id number], [place] [address] Nov, [facility] [id number], [place] [address] Jul, IMMUNIZATIONS No Known Immunizations SOCIAL HISTORY Never Assessed REASON FOR VISIT New Refill Request PLAN OF CARE VITAL SIGNS MEDICATIONS Medication Instructions Dosage Frequency Start Date End Date Duration Status Atorvastatin Calcium 10 mg Orally Once a day 1 tablet 24h Feb, 90 days Active Proventil HFA 108 (90 Base) MCG/ACT Inhalation 4 times a day 2 puffs as needed for wheezing/cough 6h Feb, Active Lisinopril 10 mg Orally Once a day 1 tablet 24h Feb, 180 days Active Spiriva HandiHaler 18 MCG Inhalation Once a day 1 capsule 24h Feb, Active HydrOXYzine HCl 25 MG Orally 2 times a day 1 tablet as needed for anxiety 12h Apr, 30 day(s) Active Cymbalta 30 MG Orally Once a day 2 capsule 24h Feb, 30 day(s) Active RESULTS No Results PROCEDURES [...]
--- OUTSIDE RECORDS SUMMARY | 2018-03-08 10:07 | XMS REPORT ---
Author Author LUDMILACARLITOS [facility] Access[facility]OVELL Address [address] [place] [address] Care Team Providers Care Greenhouse Grower Name Role Phone CARLITOS KEYS Unavailable PROBLEMS Type Condition ICD9-CM Code JEG78-BK Code Onset Dates Condition Status SNOMED Code Problem Other chronic pain G89.29 Active 65645117 Problem Hypertension, essential I10 Active 14107448 Problem Dysthymia F34.1 Active 98224443 Problem Tobacco abuse counseling Z71.6 Active 717571662 Problem Tobacco abuse Z72.0 Active 951766198 Problem Mitral valve disorder I05.9 Active 07114576 Problem Hyperglycemia R73.9 Active 34034599 Problem Pacemaker Z95.0 Active 881249503 Problem PAD (peripheral artery disease) I73.9 Active 755555360 Problem Coronary artery disease involving pilot point coronary artery of pilot point heart without angina pectoris I25.10 Active 1859865379469 Problem Chronic obstructive pulmonary disease, unspecified COPD type J44.9 Active 78918640 Problem Anhedonia R45.84 Active 96650724 Problem Pulmonary emphysema, unspecified emphysema type J43.9 Active 08071013 Problem Hyperlipidemia, unspecified hyperlipidemia E78.5 Active 51387929 Problem Lumbago with sciatica, right side M54.41 Active 841947609 ALLERGIES No Information ENCOUNTERS Encounter Location Date Diagnosis [facility] [id number][place] [id number] Sep, [facility] [id number]'KEAN, [place] [id number] Sep, [facility] [address] [id number]'KEAN, [place] [address] Aug, Tobacco abuse Z72.0 [facility] [address] [id number]'[place], [place] [address] Aug, Chronic obstructive pulmonary disease, unspecified COPD type J44.9 ; Tobacco abuse Z72.0 ; Tobacco abuse counseling Z71.6 ; Lumbago with sciatica, right side M54.41 and Other chronic pain G89.29 [facility]ERSocialTo[facility] Inc[facility] [address] [id number]'KEAN, [place] [id number] Aug, [facility] Access[facility]OVE[facility] [address] [id number]'KEAN, [place] [address] Aug, Hyperlipidemia, unspecified hyperlipidemia E78.5 ; Hypertension, essential I10 ; Pulmonary emphysema, unspecified emphysema type J43.9 ; Dysthymia F34.1 and Chronic obstructive pulmonary disease, unspecified COPD type J44.9 [facility] [address] [id number]'KEAN, [place] [address] June, Chest pain R07.9 ; Dyspnea on exertion R06.09 ; CAD (coronary artery disease) I25.10 ; Mitral valve disorder I05.9 ; Tobacco abuse Z72.0 ; Pacemaker Z95.0 ; PAD (peripheral artery disease) I73.9 and BMI 40.0-44.9, adult Z68.41 [facility] [address] [address] [id number]'KEAN, [place] [address] June, Dysthymia F34.1 [facility] [address] [id number]'KEAN, [place] [id number] Apr, [facility] [address] [id number]'KEAN, [place] [address] Apr, Coronary artery disease involving pilot point coronary artery of pilot point heart without angina pectoris I25.10 [facility] [address] [id number]'KEAN, [place] [address] Apr, [facility] [address] [id number]'KEAN, [place] [address] Apr, [facility] [address] [id number]'KEAN, [place] [address] Apr, [facility] [address] [id number]'KEAN, [place] [address] Apr, Hyperglycemia R73.9 ; Chronic obstructive pulmonary disease, unspecified COPD type J44.9 ; Dysthymia F34.1 and BMI 40.0-44.9, adult Z68.41 [facility] LOVELL J[address] [facility] [address] [id number]'KEAN, [place] [address] Mar, Pulmonary emphysema, unspecified emphysema type J43.9 and Dysthymia F34.1 [facility] LOVELL [address] Medical[address] [place] [address] AVE [id number]'KEAN, [place] [address] Feb, Hyperlipidemia, unspecified hyperlipidemia E78.5 ; Hypertension, essential I10 ; Hyperglycemia R73.9 and Pulmonary emphysema, unspecified emphysema type J43.9 [facility] LOVELL [address] Medical[address] [place] [address] AVE [id number]'KEAN, [place] [id number] Feb, Pulmonary emphysema, unspecified emphysema type J43.9 ; Dysthymia F34.1 ; Lumbago with sciatica, right side M54.41 and Other chronic pain G89.29 [facility] AccessLOVELL [address] [place] [address] AVE [id number]'KEAN, [place] [id number] Feb, [facility] LOVELL [address] [place] [address] AVE [id number]'KEAN, [place] [id number] Nov, [facility] LOVELL [address] [place] [address] AVE [id number]'KEAN, [place] [id number] Nov, Chronic obstructive pulmonary disease, unspecified COPD type J44.9 ; Encounter for immunization Z23 ; Hyperlipidemia, unspecified hyperlipidemia E78.5 ; Coronary artery disease involving pilot point coronary artery of pilot point heart without angina pectoris I25.10 and Anhedonia R45.84 [facility] LOVELL Jounce [facility] [address] [id number]'KEAN, [place] [address] Jul, Coronary atherosclerosis of unspecified type of vessel, pilot point or graft 414.00 ; Mixed hyperlipidemia 272.2 ; COPD (chronic obstructive pulmonary disease) 496 ; Obesity 278.00 and Bipolar disorder 296.80 [facility] AccessLOVELL [employer] [address] [id number]'KEAN, [place] [address] June, Coronary atherosclerosis of unspecified type of vessel, pilot point or graft 414.00 ; Mixed hyperlipidemia 272.2 ; Metabolic syndrome 277.7 ; COPD ( chronic obstructive pulmonary disease) 496 and Elevated liver enzymes 790.5 [facility] CENTERMalaika LOVELL [address] [place] [address] AV [id number]'KEAN, [place] [address] 30 May, 2014 COPD with acute exacerbation 491.21 and Tobacco abuse 305.1 [facility] [address] [id number], [place] [address] May, [facility] [address] [facility] [id number], [place] [address] May, [facility] [address] [id number], [place] [address] Apr, [facility] [address]00565100[place], [place] [address] Apr, [facility] [address]00565100[place], [place] [address] Apr, [facility] [address] [id number], [place] [address] Apr, [facility] [address] [id number], [place] [address] Feb, [facility] [address] [id number], [place] [address] 9748 Feb, [facility] [address] [id number], [place] [address] 4749 Feb, [facility] [address] [id number], [place] [address]66 Feb, [facility] [address] [id number], [place] [address] Dec, [facility] [address] [id number], [place] [address]32 Dec, [facility] [address] [id number], [place] [address] Nov, [facility] [address] [id number] [place] [address] 23 Nov, 2012 [facility] [place] [facility] [address] [id number] [place] [address] 18 Nov, 2012 [facility] [place] [facility] [address] [id number] [place] [address]- 1795 18 Nov, 2012 [facility] [place] [facility] [address] [id number] [place] [address] 16 Nov, 2012 [facility] [place] [facility] [address] [id number] [place] [address]- 0114 16 Nov, 2012 [facility] [place] [facility] [address] [id number] [place] [address]- 1628 Nov, [facility] [place] [facility] [address] [id number] [place] [address]- 8230 Nov, [facility] [place] [facility] [address] [id number] [place] [address]- 8278 Nov, [facility] [place] [facility] [address] [id number] [place] [address]- 1515 Aug, [facility] [place] [facility] [address] [id number] [place] [address]- 6066 Aug, [facility] [place] [facility] [address] [id number] [place] [address]- 7168 Aug, [facility] [place] [facility] [address] [id number] [place] [address]- 1410 24 May, 2011 [facility] [place] [facility] [address] [id number] [place] [address]- 2826 12 May, 2011 [facility] [place] [facility] [address] [id number] [place] [address]- 5957 10 May, 2011 [facility] [place] [facility] [address] [id number] [place] [address]- 2323 May, [facility] [place] [facility] [address] [id number] [place] [address]- 9765 May, [facility] [place] [facility] [address] [id number] [place] [address]- 5954 May, [facility] [address] [id number] [place] [address]- 5266 May, [facility] [address] [id number] [place] [address]- 2546 May, [facility] [address] [id number] [place] [address]- 0457 Apr, [facility] [address] [id number] [place] [address]- 78[address] Mar, [facility] [address] [id number] [place] [address]- 7046 Feb, [facility] [address] [id number] [place] [address]- 8371 Feb, [facility] [address] [id number] [place] [address]- 4789 Jan, [facility] [address] [id number] [place] [address]- 5071 Jan, [facility] [address] [id number] [place] [address] Jan, [facility] [address] [id number] [place] [address]- 1594 Jan, [facility] [address] [id number], [place] [address]- 2166 Jan, [facility] [place] [facility] [address] [id number] [place] [address]- 9966 Jan, [facility] [place] [facility] [address] [id number] [place] [address]- 6156 Jan, [facility] [place] [facility] [address] [id number] [place] [address]- 0363 Nov, [facility] [place] [facility] [address] [id number] [place] [address]- 9[address] Nov, [facility] [address] [facility] [id number] [place] [address]- 0853 Nov, [facility] [address] [facility] [id number] [place] [address]- 3582 Jul, IMMUNIZATIONS No Known Immunizations SOCIAL HISTORY Never Assessed REASON FOR VISIT Diagnosis PLAN OF CARE VITAL SIGNS MEDICATIONS Unknown [...] CVD risk 23.2% Medical History COPD-chest x-ray Surgical History hysterectomy full cervical cancer stage 2 ELIJAH with BSO 2002 Surgical History Cardiothoracic has 2 stents 2006 Surgical History cholecystectomy 1990 Surgical History pacemaker 2006 Surgical History pacemaker revision 2017 Hospitalization History Surgery(s) only
--- OUTSIDE RECORDS SUMMARY | 2018-03-08 10:07 | XMS REPORT ---
Author Author LUDMILA CARLITOS [facility] Address [address] [place] [address] Care Team Providers Care Consulting Psychologist Name Role Phone CARLITOS KEYS Unavailable PROBLEMS Type Condition ICD9-CM Code THU87-WW Code Onset Dates Condition Status SNOMED Code Problem Other chronic pain G89.29 Active 69167473 Problem Hypertension, essential I10 Active 87325126 Problem Dysthymia F34.1 Active 28567788 Problem Tobacco abuse counseling Z71.6 Active 672432138 Problem Tobacco abuse Z72.0 Active 484092541 Problem Mitral valve disorder I05.9 Active 01374783 Problem Hyperglycemia R73.9 Active 73214917 Problem Pacemaker Z95.0 Active 910516295 Problem PAD (peripheral artery disease) I73.9 Active 100498452 Problem Coronary artery disease involving southern ute coronary artery of southern ute heart without angina pectoris I25.10 Active 1765714710724 Problem Chronic obstructive pulmonary disease, unspecified COPD type J44.9 Active 52418974 Problem Anhedonia R45.84 Active 40385803 Problem Pulmonary emphysema, unspecified emphysema type J43.9 Active 67854870 Problem Hyperlipidemia, unspecified hyperlipidemia E78.5 Active 59131580 Problem Lumbago with sciatica, right side M54.41 Active 765504997 ALLERGIES No Information ENCOUNTERS Encounter Location Date Diagnosis [facility] MILLANL[facility]LL [address] [id number], [place] [id number] Sep, [facility]ITALM[facility] Digital ArtsLOVELL [employer] [address]y [address] [id number], [place] [id number] Sep, [facility] ArtsLOVELL [employer]y [address] [id number], [place] [address] Aug, Chronic obstructive pulmonary disease, unspecified COPD type J44.9 ; Tobacco abuse Z72.0 ; Tobacco abuse counseling Z71.6 ; Lumbago with sciatica, right side M54.41 and Other chronic pain G89.29 [facility] [address] [id number] [place] [id number] Aug, [facility] [address] [employer] [id number], [place] [id number] Aug, Hyperlipidemia, unspecified hyperlipidemia E78.5 ; Hypertension, essential I10 ; Pulmonary emphysema, unspecified emphysema type J43.9 ; Dysthymia F34.1 and Chronic obstructive pulmonary disease, unspecified COPD type J44.9 [facility] LOVE[address] [id number], [place] [id number] June, Chest pain R07.9 ; Dyspnea on exertion R06.09 ; CAD (coronary artery disease) I25.10 ; Mitral valve disorder I05.9 ; Tobacco abuse Z72.0 ; Pacemaker Z95.0 ; PAD (peripheral artery disease) I73.9 and BMI 40.0-44.9, adult Z68.41 [facility] [address] [id number], [place] [id number] June, Dysthymia F34.1 [facility] [address] [id number], [place] [id number] Apr, [facility] ArtsLOVELL [address] [id number], [place] [address] Apr, Coronary artery disease involving southern ute coronary artery of southern ute heart without angina pectoris I25.10 [facility] LOVE[address] [id number], [place] [address] Apr, [facility] LOVE[address] [id number], [place] [id number] Apr, [facility] LOVE[address] [id number], [place] [address] Apr, [facility] ArtsL[facility] [address] [id number], [place] [id number] Apr, Hyperglycemia R73.9 ; Chronic obstructive pulmonary disease, unspecified COPD type J44.9 ; Dysthymia F34.1 and BMI 40.0-44.9, adult Z68.41 [facility] LOVELL[address] [id number], [place] [id number] Mar, Pulmonary emphysema, unspecified emphysema type J43.9 and Dysthymia F34.1 [facility] LOVELL[address] [id number], [place] [id number] Feb, Hyperlipidemia, unspecified hyperlipidemia E78.5 ; Hypertension, essential I10 ; Hyperglycemia R73.9 and Pulmonary emphysema, unspecified emphysema type J43.9 [facility] LOVELL[address] [id number], [place] [id number] Feb, Pulmonary emphysema, unspecified emphysema type J43.9 ; Dysthymia F34.1 ; Lumbago with sciatica, right side M54.41 and Other chronic pain G89.29 [facility] LOVELL [employer] [place] [address] AVE [id number], [place] [id number] Feb, [facility] LOVELL[address] [id number], [place] [id number] Nov, [facility] LOVELL[address] [id number], [place] [id number] Nov, Chronic obstructive pulmonary disease, unspecified COPD type J44.9 ; Encounter for immunization Z23 ; Hyperlipidemia, unspecified hyperlipidemia E78.5 ; Coronary artery disease involving southern ute coronary artery of southern ute heart without angina pectoris I25.10 and Anhedonia R45.84 [facility] LOVELL [employer] [place] [address] AVE [id number], [place] [id number] Jul, Coronary atherosclerosis of unspecified type of vessel, southern ute or graft 414.00 ; Mixed hyperlipidemia 272.2 ; COPD (chronic obstructive pulmonary disease) 496 ; Obesity 278.00 and Bipolar disorder 296.80 [facility] LOVELL [employer] [place] [address] AVE [id number], [place] [id number] June, Coronary atherosclerosis of unspecified type of vessel, southern ute or graft 414.00 ; Mixed hyperlipidemia 272.2 ; Metabolic syndrome 277.7 ; COPD ( chronic obstructive pulmonary disease) 496 and Elevated liver enzymes 790.5 [facility] LOVELL [address] [place] [address] AV [id number] [place] [id number] 30 May, 2014 COPD with acute exacerbation 491.21 and Tobacco abuse 305.1 [facility] [address]00565100[place], [place] [address] 14 May, 2014 [facility] [address] [id number], [place] [address]- 3277 13 May, 2014 [facility] [place] [facility] [address] [facility] [id number] [address]- 1046 Apr, [facility] [place] [facility] [address] [id number], [place] [address]- 0197 Apr, [facility] [place] [facility] [address] [id number], [place] [address]- 6641 Apr, [facility] [place] [facility] [address] [id number], [place] [address]- 4762 Apr, [facility] [place] [facility] [address] [id number], [place] [address]- 6339 Feb, [facility] [place] [facility] [address] [id number], [place] [address]- 2538 Feb, [facility] [place] [facility] [address] [id number], [place] [address]- 5292 Feb, [facility] [place] [facility] [address] [id number], [place] [address]- 3461 Feb, [facility] [place] [facility] [address] [id number], [place] [address]- 4758 Dec, [facility] [place] [facility] [address] [facility] [id number][place] [address]- 6931 Dec, [facility] [place] [facility] [address] [id number], [place] [address]- 3389 Nov, [facility] [place] [facility] [address] [id number], [place] [address]- 0296 Nov, [facility] [place] [facility] [address] [id number], [place] [address]- 8044 18 Nov, 2012 [facility] [place] [facility] [address] [id number] [place] [address]- 2332 18 Nov, 2012 [facility] [place] [facility] [address] [id number] [place] [address]- 8883 16 Nov, 2012 [facility] [place] [facility] [address] [id number] [place] [address]- 9232 16 Nov, 2012 [facility] [place] [facility] [address] [id number] [place] [address]- 9269 Nov, [facility] [place] [facility] [address] [id number] [place] [address]- 6512 11 Nov, 2012 [facility] [place] [facility] [address] [id number] [place] [address]- 1274 08 Nov, 2012 [facility] [address] [id number] [place] [address]- 8995 Aug, [facility] [place] [facility] [address] [id number] [place] [address]- 5964 Aug, [facility] [place] [facility] [address] [id number] [place] [address]- 5509 Aug, [facility] [place] [facility] [address] [facility] [id number] [place] [address]- 2721 24 May, 2011 [facility] [place] [facility] [address] [id number] [place] [address]- 2346 May, [facility] [place] [facility] [address] [id number] [place] [address]- 8801 May, [facility] [place] [facility] [address] [id number] [place] [address]- 5652 May, [facility] [place] [facility] [address] [id number] [place] [address]- 2718 May, [facility] [place] [facility] [address] [id number] [place] [address]- 8705 May, [facility] [place] [facility] [address] [id number] [place] [address]- 2546 May, [facility] [place] [facility] [address] [id number] [place] [address] 2546 May, [facility] [place] [facility] [address] [id number] [place] [address]- 2546 Apr, [facility] [place] [facility] [address] [id number] [place] [address]- 2546 Mar, [facility] [place] [facility] [address] [id number] [place] [address]- 2546 Feb, [facility] [place] [facility] [address] [id number] [place] [address] 2546 Feb, [facility] [place] [facility] [address] [id number] [place] [address]- 5529 Jan, [facility] [place] [facility] [address] [id number] [place] [address]- 2790 Jan, [facility] [place] [facility] [address] [id number] [place] [address]- 3645 Jan, [facility] [place] [facility] [address] [id number] [place] [address]- 1638 Jan, [facility] [place] [facility] [address] [facility] [id number] [place] [address]- 2252 Jan, [facility] [place] [facility] [address] [id number] [place] [address]- 2546 Jan, [facility] [place] [facility] [address] [id number] [place] [address]- 2541 Jan, [facility] [place] [facility] [address] [id number] [place] [address]- 2546 18 Nov, 2010 [facility] [place] [facility] [address] [id number] [place] [address]- 2546 13 Nov, 2010 [facility] [place] [facility] [address] [id number] [place] [address]- 7403 Nov, [facility] [address] [facility] [id number] [place] [address]- 8844 Jul, IMMUNIZATIONS No Known Immunizations SOCIAL HISTORY Never Assessed REASON FOR VISIT X-Ray Results PLAN OF CARE VITAL SIGNS MEDICATIONS Unknown [...]
--- OUTSIDE RECORDS SUMMARY | 2018-03-08 10:07 | XMS REPORT ---
Author Author LUDMILA CARLITOS [facility] Address [address] [place] [address] Care Team Providers Care Marketing Professor Name Role Phone CARLITOS KEYS Unavailable PROBLEMS Type Condition ICD9-CM Code PKK39-DI Code Onset Dates Condition Status SNOMED Code Problem Dysthymia F34.1 Active 37051533 Problem Hyperglycemia R73.9 Active 30825823 Problem Hypertension, essential I10 Active 95076583 Problem Lumbar spondylolysis M43.06 Active 407575104 Problem Tobacco abuse counseling Z71.6 Active 886755333 Problem PAD (peripheral artery disease) I73.9 Active 417738789 Problem Mitral valve disorder I05.9 Active 98468143 Problem Tobacco abuse Z72.0 Active 284355898 Problem Pacemaker Z95.0 Active 953237086 Problem Anhedonia R45.84 Active 57943889 Problem Chronic obstructive pulmonary disease, unspecified COPD type J44.9 Active 11433833 Problem Pulmonary emphysema, unspecified emphysema type J43.9 Active 92714813 Problem Hyperlipidemia, unspecified hyperlipidemia E78.5 Active 10026749 Problem Lumbago with sciatica, right side M54.41 Active 860439817 Problem Coronary artery disease involving tuscarora coronary artery of tuscarora heart without angina pectoris I25.10 Active 1094532596347 Problem Other chronic pain G89.29 Active 87055709 ALLERGIES No Information ENCOUNTERS Encounter Location Date Diagnosis [facility] [address] [id number] [place] [id number] Sep, [facility] [address] [id number][place] [id number] Sep, [facility] [address] [id number], [place] [id number] Aug, [facility] [address] [facility] [id number] [place] [address] Aug, [facility] [address] [employer] [id number], [place] [id number] Aug, Lumbar spondylolysis M43.06 [facility] [address] [id number], [place] [id number] Aug, Tobacco abuse Z72.0 [facility] [address] [id number], [place] [id number] Aug, Chronic obstructive pulmonary disease, unspecified COPD type J44.9 ; Tobacco abuse Z72.0 ; Tobacco abuse counseling Z71.6 ; Lumbago with sciatica, right side M54.41 and Other chronic pain G89.29 [facility] [address] [id number], [place] [id number] Aug, [facility] [address] [id number], [place] [id number] Aug, Hyperlipidemia, unspecified hyperlipidemia E78.5 ; Hypertension, essential I10 ; Pulmonary emphysema, unspecified emphysema type J43.9 ; Dysthymia F34.1 and Chronic obstructive pulmonary disease, unspecified COPD type J44.9 [facility] PharmaceuticalsL[facility] [address] [id number], [place] [id number] June, Chest pain R07.9 ; Dyspnea on exertion R06.09 ; CAD (coronary artery disease) I25.10 ; Mitral valve disorder I05.9 ; Tobacco abuse Z72.0 ; Pacemaker Z95.0 ; PAD (peripheral artery disease) I73.9 and BMI 40.0-44.9, adult Z68.41 [facility] [address] [id number], [place] [address] June, Dysthymia F34.1 [facility] [address] [id number], [place] [id number] Apr, [facility] Rivers PharmaceuticalsL[facility]LL [address] [id number], [place] [id number] Apr, Coronary artery disease involving tuscarora coronary artery of tuscarora heart without angina pectoris I25.10 [facility] [employer] [address] [id number], [place] [id number] Apr, [facility] [address] [id number], [place] [id number] Apr, [facility] [address] [id number], [place] [id number] Apr, [facility] [address] [place] [address] AVE [id number], [place] [address]956[address] Apr, Hyperglycemia R73.9 ; Chronic obstructive pulmonary disease, unspecified COPD type J44.9 ; Dysthymia F34.1 and BMI 40.0-44.9, adult Z68.41 [facility] [address] [employer] [address] [id number], [place] 408[address] Mar, Pulmonary emphysema, unspecified emphysema type J43.9 and Dysthymia F34.1 [facility] [employer] [place] [address] AVE [id number], [place] [id number] Feb, Hyperlipidemia, unspecified hyperlipidemia E78.5 ; Hypertension, essential I10 ; Hyperglycemia R73.9 and Pulmonary emphysema, unspecified emphysema type J43.9 [facility]ENTER[facility] Rivers PharmaceuticalsLOVELL[address] [id number], [place] [id number] Feb, Pulmonary emphysema, unspecified emphysema type J43.9 ; Dysthymia F34.1 ; Lumbago with sciatica, right side M54.41 and Other chronic pain G89.29 [facility] [address] [employer] [address] [id number], [place] [id number] Feb, [facility] [address] [employer] [employer] [id number], [place] [address]4788146 Nov, [facility] Rivers PharmaceuticalsLOVELL [facility] A[address] [id number], [place] 13518[address] Nov, Chronic obstructive pulmonary disease, unspecified COPD type J44.9 ; Encounter for immunization Z23 ; Hyperlipidemia, unspecified hyperlipidemia E78.5 ; Coronary artery disease involving tuscarora coronary artery of tuscarora heart without angina pectoris I25.10 and Anhedonia R45.84 [facility] [address] [id number], [place] [address] Jul, Coronary atherosclerosis of unspecified type of vessel, tuscarora or graft 414.00 ; Mixed hyperlipidemia 272.2 ; COPD (chronic obstructive pulmonary disease) 496 ; Obesity 278.00 and Bipolar disorder 296.80 [facility]ENTER[facility] MILLANLOVELL [facility] [address] [id number], [place] [address] June, Coronary atherosclerosis of unspecified type of vessel, tuscarora or graft 414.00 ; Mixed hyperlipidemia 272.2 ; Metabolic syndrome 277.7 ; COPD ( chronic obstructive pulmonary disease) 496 and Elevated liver enzymes 790.5 [facility] Theodore[address] [place], [place] [address] [id number], [place] [address]47 May, COPD with acute exacerbation 491.21 and Tobacco abuse 305.1 [facility] [address]00565100[place] [address] May, [facility] [id number] [place] [address] 455[address] May, [facility] [address]00565100[place], [place] [address] Apr, [facility] [address] [id number] [address] [address] Apr, [facility] [address]00565100[place] [address]- 3[address] Apr, [facility] [address]00565100[place], [place] [address] Apr, [facility] [address]00565100[place], [place] [address]- 6[address] Feb, [facility] [address] [id number] [address]- 2006 Feb, [facility] [address]00565100[place], [place] [address]- [address] Feb, [facility] [address] [place] [address]- 1728 Feb, [facility] [place] [facility] [address] [id number] [place] [address]- [address] Dec, [facility] [place] [facility] [address] [id number] [place] [address]- 9181 Dec, [facility] [place] [facility] [address] [id number] [place] [address]- 8077 Nov, [facility] [place] [facility] [address] [id number] [place] [address]- 3535 Nov, [facility] [place] [facility] [address] [id number] [place] [address]- 7452 Nov, [facility] [place] [facility] [address] [id number] [place] [address]- 2523 Nov, [facility] [place] [facility] [address] [id number] [place] [address]- 3464 Nov, [facility] [place] [facility] [address] [id number] [place] [address]- 3891 Nov, [facility] [place] [facility] [address] [id number] [place] [address]- 2542 Nov, [facility] [place] [facility] [address] [id number] [place] [address]- 0543 Nov, [facility] [place] [facility] [address] [id number] [place] [address]- 3299 Nov, [facility] [place] [facility] [address] [id number], [place] [address]- [address] Aug, [facility] [place] [facility] [address] [id number] [place] [address]- 7634 Aug, [facility] [place] [facility] [address] [id number] [address]- [address] Aug, [facility] [place] [facility] [address] [id number] [place] [address]- 7986 May, [facility] [place] [facility] [address] [id number] [place] [address]- 1257 May, [facility] [address] [id number] [place] [address]- 0125 May, [facility] [place] [facility] [address] [id number] [place] [address]- 2894 May, [facility] [place] [facility] [address] [id number] [place] [address]- 5436 May, [facility] [place] [facility] [address] [id number] [place] [address]- 3335 May, [facility] [place] [facility] [address] [id number] [place] [address]- 9242 May, [facility] [place] [facility] [address] [id number] [place] [address]- 5262 May, [facility] [address] [id number] [place] [address]- 4082 Apr, [facility] [place] [facility] [address] [id number] [place] [address]- 7961 Mar, [facility] [place] [facility] [address] [id number] [place] [address]- 8638 Feb, [facility] [place] [facility] [address] [id number] [place] [address]- 2979 Feb, [facility] [place] [facility] [address] [id number] [place] [address]- 6605 Jan, [facility] [place] [facility] [address] [id number] [place] [address]- 6859 Jan, [facility] [place] [facility] [address] [id number] [place] [address]- 1545 Jan, [facility] [place] [facility] [address] [id number] [place] [address]- 6600 Jan, [facility] [place] [facility] [address] [id number] [place] [address]- 7551 Jan, [facility] [address] [facility] [id number] [address]- [address] Jan, [facility] [address] [facility] [id number] [address]- 5[address] Jan, [facility] [address] [facility] [id number] [address]- [address] Nov, [facility] [address] [id number] [address]- [address] Nov, [facility] [address] [facility] [id number] [address]- 5558 Nov, [facility] [address] [facility] [id number], [place] [address]- [address] Jul, IMMUNIZATIONS No Known Immunizations SOCIAL HISTORY Never Assessed REASON FOR VISIT PLAN OF CARE VITAL SIGNS MEDICATIONS Medication Instructions Dosage Frequency Start Date End Date Duration Status HydrOXYzine HCl 25 MG Orally 2 times a day 1 tablet as needed for anxiety 12Apr, 30 day(s) Active RESULTS No Results PROCEDURES [...]
--- OUTSIDE RECORDS SUMMARY | 2018-03-08 10:07 | XMS REPORT ---
Author Author APARNA ISBELL [facility] Address [address] [place] [address] Care Team Providers Care Ply Splicer Name Role Phone APARNA ISBELL Unavailable PROBLEMS Type Condition ICD9-CM Code LTH90-VD Code Onset Dates Condition Status SNOMED Code Problem Dysthymia F34.1 Active 52487935 Problem Hyperglycemia R73.9 Active 59377975 Problem Hypertension, essential I10 Active 74392294 Problem Lumbar spondylolysis M43.06 Active 910075742 Problem Tobacco abuse counseling Z71.6 Active 684499356 Problem PAD (peripheral artery disease) I73.9 Active 963859352 Problem Mitral valve disorder I05.9 Active 73406367 Problem Tobacco abuse Z72.0 Active 664540776 Problem Pacemaker Z95.0 Active 828429970 Problem Anhedonia R45.84 Active 46394741 Problem Chronic obstructive pulmonary disease, unspecified COPD type J44.9 Active 94775894 Problem Pulmonary emphysema, unspecified emphysema type J43.9 Active 03619105 Problem Hyperlipidemia, unspecified hyperlipidemia E78.5 Active 72431272 Problem Lumbago with sciatica, right side M54.41 Active 163761065 Problem Coronary artery disease involving tazlina coronary artery of tazlina heart without angina pectoris I25.10 Active 4187540881822 Problem Other chronic pain G89.29 Active 95554054 ALLERGIES Substance Reaction Event Type Date Status Fitzhugh (Diagnostic) hives Drug Allergy June, Active Morphine Sulfate violent behavior Drug Allergy June, Active ENCOUNTERS Encounter Location Date Diagnosis [facility] [address] [id number], [place] [id number] Sep, [facility] [address] [id number] [place] [id number] Sep, [facility] [address] [id number] [place] [id number] Sep, [facility] [address] [id number] [place] [address] Sep, [facility] [address] [place] [address] AVE [id number], [place] [id number] Aug, [facility] [address] [facility] [id number] [place] [address] Aug, [facility] [address] [id number], [place] [id number] Aug, Lumbar spondylolysis M43.06 [facility] [address] [place] [address] AVE [id number], [place] [id number] Aug, Tobacco abuse Z72.0 [facility] [address] [address] [place] [address] AVE [id number], [place] [id number] Aug, Chronic obstructive pulmonary disease, unspecified COPD type J44.9 ; Tobacco abuse Z72.0 ; Tobacco abuse counseling Z71.6 ; Lumbago with sciatica, right side M54.41 and Other chronic pain G89.29 [facility] [address] [place] [address] AVE [id number], [place] [id number] Aug, [facility]OSPITALScotty GearMalaika [address] [id number], [place] [id number] Aug, Hyperlipidemia, unspecified hyperlipidemia E78.5 ; Hypertension, essential I10 ; Pulmonary emphysema, unspecified emphysema type J43.9 ; Dysthymia F34.1 and Chronic obstructive pulmonary disease, unspecified COPD type J44.9 [facility] SYSTEMEversnapLOVELL [address] [place] [address] AVE [id number], [place] [id number] June, Chest pain R07.9 ; Dyspnea on exertion R06.09 ; CAD (coronary artery disease) I25.10 ; Mitral valve disorder I05.9 ; Tobacco abuse Z72.0 ; Pacemaker Z95.0 ; PAD (peripheral artery disease) I73.9 and BMI 40.0-44.9, adult Z68.41 [facility]ALSEE[facility]napLOVLEL [address] [id number], [place] [id number] June, Dysthymia F34.[address] [facility] [address] [id number] [place] [id number] Apr, [facility] [address] [id number], [place] [address] Apr, Coronary artery disease involving tazlina coronary artery of tazlina heart without angina pectoris I25.10 [facility] [address] [id number], [place] [id number] Apr, [facility] [address] [id number], [place] [id number] Apr, [facility] [address] [id number], [place] [id number] Apr, [facility] [address] [id number], [place] [id number] Apr, Hyperglycemia R73.9 ; Chronic obstructive pulmonary disease, unspecified COPD type J44.9 ; Dysthymia F34.1 and BMI 40.0-44.9, adult Z68.41 [facility] [address] [id number], [place] [id number] Mar, Pulmonary emphysema, unspecified emphysema type J43.9 and Dysthymia F34.1 [facility] [address] [id number], [place] [address] Feb, Hyperlipidemia, unspecified hyperlipidemia E78.5 ; Hypertension, essential I10 ; Hyperglycemia R73.9 and Pulmonary emphysema, unspecified emphysema type J43.9 [facility] [address] [id number], [place] [id number] Feb, Pulmonary emphysema, unspecified emphysema type J43.9 ; Dysthymia F34.1 ; Lumbago with sciatica, right side M54.41 and Other chronic pain G89.29 [facility] [address] [id number], [place] [address]045092 Feb, [facility] [address] [id number], [place] [address]1866 Nov, [facility] [address] [id number], [place] [address]85 Nov, Chronic obstructive pulmonary disease, unspecified COPD type J44.9 ; Encounter for immunization Z23 ; Hyperlipidemia, unspecified hyperlipidemia E78.5 ; Coronary artery disease involving tazlina coronary artery of tazlina heart without angina pectoris I25.10 and Anhedonia R45.[address] [id number], [place] [address] Jul, Coronary atherosclerosis of unspecified type of vessel, tazlina or graft 414.00 ; Mixed hyperlipidemia 272.2 ; COPD (chronic obstructive pulmonary disease) 496 ; Obesity 278.00 and Bipolar disorder 296.[address] [id number], [place] [address] June, Coronary atherosclerosis of unspecified type of vessel, tazlina or graft 414.00 ; Mixed hyperlipidemia 272.2 ; Metabolic syndrome 277.7 ; COPD ( chronic obstructive pulmonary disease) 496 and Elevated liver enzymes 790.5 [address] [id number], [place] [address] May, COPD with acute exacerbation 491.21 and Tobacco abuse 305.1 [facility] [id number] [place] [address]- 7733 May, [facility] [id number] [place] [address]89- 6677 May, [facility] [id number] [place] [address] 21287- 0329 Apr, [facility] [id number] [place] [address] [id number]- 4689 Apr, [facility] [id number] [place] [address] 71107- 3046 Apr, [facility] [id number] [place] [address] 44090770- 7370 Apr, [facility] [id number] [place] [address] [id number]- 2274 Feb, [facility] [place] [facility] [address] [id number] [place] [address]- 3305 17 Feb, 2013 [facility] [place] [facility] [address] [id number] [place] [address]- 2659 Feb, [facility] [place] [facility] [address] [id number] [place] [address]- 7509 Feb, [facility] [place] [facility] [address] [id number] [place] [address]- 3244 Dec, [facility] [place] [facility] [address] [id number] [place] [address]- 9000 Dec, [facility] [place] [facility] [address] [id number] [place] [address]- 9110 Nov, [facility] [place] [facility] [address] [id number] [place] [address]- 0854 Nov, [facility] [place] [facility] [address] [id number] [place] [address]- 6729 Nov, [facility] [place] [facility] [address] [id number] [place] [address]- 7312 Nov, [facility] [place] [facility] [address] [id number] [place] [address]- 4039 Nov, [facility] [place] [facility] [address] [id number] [place] [address]- 4706 16 Nov, 2012 [facility] [place] [facility] [address] [id number] [place] [address]- 2471 Nov, [facility] [place] [facility] [address] [id number] [place] [address]- 7024 Nov, [facility] [place] [facility] [address] [id number] [place] [address]- 9651 Nov, [facility] [place] [facility] [address] [id number] [place] [address]- 8462 Aug, [facility] [place] [facility] [address] [id number] [place] [address]- 1346 Aug, [facility] [address] [id number] [place] [address]- 2008 Aug, [facility] [place] [facility] [address] [id number] [place] [address]- 2953 May, [facility] [place] [facility] [address] [id number] [place] [address]- 8239 May, [facility] [place] [facility] [address] [id number] [place] [address]- 5925 May, [facility] [place] [facility] [address] [id number] [place] [address]- 0638 May, [facility] [place] [facility] [address] [id number] [place] [address]- 8979 May, [facility] [place] [facility] [address] [id number] [place] [address]- 5748 May, [facility] [place] [facility] [address] [id number] [place] [address]- 9548 May, [facility] [place] [facility] [address] [id number] [place] [address]- 6696 May, [facility] [place] [facility] [address] [id number] [place] [address]- 5989 Apr, [facility] [place] [facility] [address] [id number] [place] [address]- 8579 Mar, [facility] [place] [facility] [address] [id number] [place] [address]- 2843 Feb, [facility] [place] [facility] [address] [id number] [place] [address]- 0514 Feb, [facility] [place] [facility] [address] [id number] [place] [address]- 1537 Jan, [facility] [place] [facility] [address] [id number] [place] [address]- 6391 Jan, [facility] [place] [facility] [address] [id number], [place] [address]- 6662 Jan, [facility] [address] [id number], [place] [address]- 8510 Jan, [facility] [address]00565100[place], [place] [address]- 5633 Jan, [facility] [id number], [place] [address] Jan, [facility] [id number], [place] [address] Jan, [facility] [id number] [address] Nov, [facility] [id number] [address] Nov, [facility] [id number], [place] [address] Nov, [facility] [address] [id number], [place] [address] Jul, IMMUNIZATIONS No Known Immunizations SOCIAL HISTORY Never Assessed REASON FOR VISIT Cardiology consult PLAN OF CARE Activity Details Follow Up 2-3 months after test are done Reason: Pending Test Carotid Ultrasound Pending Test JUAN w/ Segmentals VITAL SIGNS Height 60 in 2017-07-02 Weight 206 lbs 2017-07-02 Heart Rate 72 bpm 2017-07-02 Respiratory Rate 18 2017-07-02 Oximetry 96 % 2017-07-02 BMI 40.23 kg/m2 2017-07-02 Blood pressure systolic 130 mmHg 2017-07-02 Blood pressure diastolic 74 mmHg 2017-07-02 MEDICATIONS Medication Instructions Dosage Frequency Start Date End Date Duration Status Lisinopril 10 mg Orally Once a day 1 tablet 24h Feb, 180 days Active Atorvastatin Calcium 10 mg Orally Once a day 1 tablet 24h Feb, 90 days Active Proventil HFA 108 (90 Base) MCG/ACT Inhalation 4 times a day 2 puffs as needed for wheezing/cough 6h Feb, Active Aspirin 81 MG Orally Once a day 1 tablet 24h June, 30 day(s) Active Spiriva HandiHaler 18 MCG Inhalation Once a day 1 capsule 24h Feb, Active Aspirin 81 MG Orally Once a day 24h Not-Taking Mucinex Not-Taking Cymbalta 30 MG Orally Once a day 2 capsule 24h Feb, 30 day(s) Active HydrOXYzine HCl 25 MG Orally 2 times a day 1 tablet as needed for anxiety 12h Apr, 30 day(s) Active Celebrex 100 mg Orally Once a day 1-2 capsule with food as needed for pain 24h Feb, Not-Taking RESULTS Name Result Date Reference Range Lexiscan Stress Nuclear Test Echo 2D PROCEDURES No Known procedures INSTRUCTIONS MEDICATIONS ADMINISTERED [...]
--- OUTSIDE RECORDS SUMMARY | 2018-03-08 10:07 | XMS REPORT ---
Author Author LUDMILA CARLITOS [facility] Address [address] [place] [address] Care Team Providers Care Genetics Nurse Name Role Phone CARLITOS KEYS Unavailable PROBLEMS Type Condition ICD9-CM Code EEC08-AY Code Onset Dates Condition Status SNOMED Code Problem Other chronic pain G89.29 Active 94083088 Problem Hypertension, essential I10 Active 51783392 Problem Dysthymia F34.1 Active 63337571 Problem Tobacco abuse counseling Z71.6 Active 191366077 Problem Tobacco abuse Z72.0 Active 888131512 Problem Mitral valve disorder I05.9 Active 78297528 Problem Hyperglycemia R73.9 Active 91480428 Problem Pacemaker Z95.0 Active 496520344 Problem PAD (peripheral artery disease) I73.9 Active 801197557 Problem 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 Active 5831949779714 Problem Chronic obstructive pulmonary disease, unspecified COPD type J44.9 Active 90849544 Problem Anhedonia R45.84 Active 03796701 Problem Pulmonary emphysema, unspecified emphysema type J43.9 Active 11356349 Problem Hyperlipidemia, unspecified hyperlipidemia E78.5 Active 11987398 Problem Lumbago with sciatica, right side M54.41 Active 272769812 ALLERGIES No Information ENCOUNTERS Encounter Location Date Diagnosis [facility] [address] [id number] [id number] Sep, [facility] Unfold[address]y [address] [id number], [place] [id number] Sep, [facility] Un[facility]y [address] [id number], [place] [address] Aug, Chronic obstructive pulmonary disease, unspecified COPD type J44.9 ; Tobacco abuse Z72.0 ; Tobacco abuse counseling Z71.6 ; Lumbago with sciatica, right side M54.41 and Other chronic pain G89.[address] [facility] [address] [address] [id number] [place] [id number] Aug, [facility] [address] [id number], [place] [id number] Aug, Hyperlipidemia, unspecified hyperlipidemia E78.5 ; Hypertension, essential I10 ; Pulmonary emphysema, unspecified emphysema type J43.9 ; Dysthymia F34.1 and Chronic obstructive pulmonary disease, unspecified COPD type J44.9 [facility] [address] [id number], [place] [id number] June, Chest pain R07.9 ; Dyspnea on exertion R06.09 ; CAD (coronary artery disease) I25.10 ; Mitral valve disorder I05.9 ; Tobacco abuse Z72.0 ; Pacemaker Z95.0 ; PAD (peripheral artery disease) I73.9 and BMI 40.0-44.9, adult Z68.41 [facility] [address] [id number], [place] [id number] June, Dysthymia F34.[address] [facility] [address] [id number], [place] [address] Apr, [facility] [address] [id number], [place] [address] Apr, 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 [facility] [address] [id number], [place] [id number] Apr, [facility] [address] [id number], [place] [id number] Apr, [facility] [address] [id number], [place] [id number] Apr, [facility] [address] [id number], [place] [address] Apr, Hyperglycemia R73.9 ; Chronic obstructive pulmonary disease, unspecified COPD type J44.9 ; Dysthymia F34.1 and BMI 40.0-44.9, adult Z68.41 [facility] [address] [id number], [place] [address] Mar, Pulmonary emphysema, unspecified emphysema type J43.9 and Dysthymia F34.1 [facility] [address] [id number], [place] [address] Feb, Hyperlipidemia, unspecified hyperlipidemia E78.5 ; Hypertension, essential I10 ; Hyperglycemia R73.9 and Pulmonary emphysema, unspecified emphysema type J43.9 [facility] [address] [id number], [place] [address] Feb, Pulmonary emphysema, unspecified emphysema type J43.9 ; Dysthymia F34.1 ; Lumbago with sciatica, right side M54.41 and Other chronic pain G89.29 [facility] [address] [place] [address] AVE [id number], [place] [id number] Feb, [facility] [address] [id number], [place] [id number] Nov, [facility] [address] [id number], [place] [address] Nov, Chronic obstructive pulmonary disease, unspecified COPD type J44.9 ; Encounter for immunization Z23 ; Hyperlipidemia, unspecified hyperlipidemia E78.5 ; 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 and Anhedonia R45.84 [facility] [address] [place] [address] AVE [id number], [place] [address] Jul, Coronary atherosclerosis of unspecified type of vessel, lone pine or graft 414.00 ; Mixed hyperlipidemia 272.2 ; COPD (chronic obstructive pulmonary disease) 496 ; Obesity 278.00 and Bipolar disorder 296.80 [facility] [address] [place] [address] AVE [id number], [place] [address] June, Coronary atherosclerosis of unspecified type of vessel, lone pine or graft 414.00 ; Mixed hyperlipidemia 272.2 ; Metabolic syndrome 277.7 ; COPD ( chronic obstructive pulmonary disease) 496 and Elevated liver enzymes 790.5 [facility] [address] [place] [address] AV [id number] [place] [id number] 30 May, 2014 COPD with acute exacerbation 491.21 and Tobacco abuse 305.1 [facility] [address]00565[address], [place] [address] 14 May, 2014 [facility] [address] [id number], [place] [address] 13 May, 2014 [facility] [place] [facility] [address] [facility] [id number], [place] [address] Apr, [facility] [place] [facility] [address] [id number], [place] [address] Apr, [facility] [place] [facility] [address] [id number], [place] [address]248 Apr, [facility] [place] [facility] [address] [id number], [place] [address] 3668 Apr, [facility] [place] [facility] [address] [id number], [place] [address] 6[address] Feb, [facility] [place] [facility] [address] [id number], [place] [address] Feb, [facility] [place] [facility] [address] [id number], [place] [address] Feb, [facility] [place] [facility] [address] [id number], [place] [address] 1746 Feb, [facility] [place] [facility] [address] [id number], [place] [address] 280[address] Dec, [facility] [place] [facility] [address] [facility] [id number], [place] [address] Dec, [facility] [place] [facility] [address] [id number], [place] [address] Nov, [facility] [place] [facility] [address] [id number], [place] [address] Nov, [facility] [place] [facility] [address] [id number], [place] [address] 18 Nov, 2012 [facility] [place] [facility] [address] [id number] [place] [address] 18 Nov, 2012 [facility] [place] [facility] [address] [id number] [place] [address] 2283 16 Nov, 2012 [facility] [place] [facility] [address] [id number] [place] [address] 6047 16 Nov, 2012 [facility] [place] [facility] [address] [id number] [place] [address] 9597 Nov, [facility] [place] [facility] [address] [id number] [place] [address]- 8433 11 Nov, 2012 [facility] [place] [facility] [address] [id number] [place] [address]- 1670 08 Nov, 2012 [facility] [address] [id number] [place] [address] 3187 Aug, [facility] [place] [facility] [address] [id number] [place] [address]- 7904 Aug, [facility] [place] [facility] [address] [id number] [place] [address]- 4469 Aug, [facility] [place] [facility] [address] [facility] [id number] [place] [address]- 3868 24 May, 2011 [facility] [place] [facility] [address] [id number] [place] [address] 3141 May, [facility] [place] [facility] [address] [id number] [place] [address]- 9712 May, [facility] [place] [facility] [address] [id number] [place] [address]- 8727 May, [facility] [place] [facility] [address] [id number] [place] [address]- 4979 May, [facility] [place] [facility] [address] [id number] [place] [address] 9670 May, [facility] [place] [facility] [address] [id number] [place] [address]- 2546 May, [facility] [place] [facility] [address] [id number] [place] [address] 2546 May, [facility] [place] [facility] [address] [id number] [place] [address]- 2546 Apr, [facility] [place] [facility] [address] [id number] [place] [address]- 2546 Mar, [facility] [place] [facility] [address] [id number] [place] [address]- 2546 Feb, [facility] [place] [facility] [address] [id number] [place] [address] 2546 Feb, [facility] [place] [facility] [address] [id number] [place] [address]- 9008 Jan, [facility] [place] [facility] [address] [id number] [place] [address]- 3257 Jan, [facility] [place] [facility] [address] [id number] [place] [address]- 9531 Jan, [facility] [place] [facility] [address] [id number] [place] [address]- 8320 Jan, [facility] [place] [facility] [address] [facility] [id number] [place] [address]- 3134 Jan, [facility] [place] [facility] [address] [id number] [place] [address]- 2546 Jan, [facility] [place] [facility] [address] [id number] [place] [address]- 2548 Jan, [facility] [place] [facility] [address] [id number] [place] [address]- 2546 18 Nov, 2010 [facility] [place] [facility] [address] [id number] [place] [address]- [address]46 13 Nov, 2010 [facility] [place] [facility] [address] [id number] [place] [address]- 7193 Nov, [facility] [address] [facility] [id number] [place] [address] Jul, IMMUNIZATIONS No Known Immunizations SOCIAL HISTORY Never Assessed REASON FOR VISIT x ray PLAN OF CARE VITAL SIGNS MEDICATIONS Unknown [...]
--- OUTSIDE RECORDS SUMMARY | 2018-03-08 10:08 | XMS REPORT ---
Author Author LUDMILA CARLITOS [facility] Address [address] [place] [address] Care Team Providers Care Philosophy Faculty Member Name Role Phone CARLITOS KEYS Unavailable PROBLEMS Type Condition ICD9-CM Code FWR69-WR Code Onset Dates Condition Status SNOMED Code Problem Pulmonary emphysema, unspecified emphysema type J43.9 Active 72062434 Problem Other chronic pain G89.29 Active 85452634 Problem Lumbago with sciatica, right side M54.41 Active 706002152 Problem Hyperlipidemia, unspecified hyperlipidemia E78.5 Active 97094792 Problem Coronary artery disease involving [place] coronary artery of [place] heart without angina pectoris I25.10 Active 7771670090252 Problem Chronic obstructive pulmonary disease, unspecified COPD type J44.9 Active 41454894 Problem Anhedonia R45.84 Active 27814884 Problem PAD (peripheral artery disease) I73.9 Active 682206115 Problem Mitral valve disorder I05.9 Active 21778047 Problem Hypertension, essential I10 Active 58832816 Problem Dysthymia F34.1 Active 01629582 Problem Pacemaker Z95.0 Active 040386768 Problem Hyperglycemia R73.9 Active 73011989 ALLERGIES Substance Reaction Event Type Date Status Wasta (Diagnostic) hives Drug Allergy Feb, Active Morphine Sulfate violent behavior Drug Allergy Feb, Active ENCOUNTERS Encounter Location Date Diagnosis [facility] [address] [id number], [place] [id number] Sep, [facility] [address] [id number], [place] [id number] Aug, [facility] [address] [id number], [place] [address] June, Chest pain R07.9 ; Dyspnea on exertion R06.09 ; CAD (coronary artery disease) I25.10 ; Mitral valve disorder I05.9 ; Tobacco abuse Z72.0 ; Pacemaker Z95.0 ; PAD (peripheral artery disease) I73.9 and BMI 40.0-44.9, adult Z68.41 [facility] [address] [address] [id number], [place] [address] June, Dysthymia F34.1 [facility] [address] [address] [id number], [place] [address] Apr, [facility] [address] [id number], [place] [id number] Apr, Coronary artery disease involving [place] coronary artery of [place] heart without angina pectoris I25.10 [facility] [address] [address] [id number], [place] [address] Apr, [facility] [address] [id number], [place] [id number] Apr, [facility] [address] [id number], [place] [address] Apr, [facility] [address] [id number], [place] [address] Apr, Hyperglycemia R73.9 ; Chronic obstructive pulmonary disease, unspecified COPD type J44.9 ; Dysthymia F34.1 and BMI 40.0-44.9, adult Z68.41 [facility] [address] [id number], [place] [id number] Mar, Pulmonary emphysema, unspecified emphysema type J43.9 and Dysthymia F34.1 [facility] [id number], [place] [id number] Feb, Hyperlipidemia, unspecified hyperlipidemia E78.5 ; Hypertension, essential I10 ; Hyperglycemia R73.9 and Pulmonary emphysema, unspecified emphysema type J43.9 [facility] [address] [address] [id number], [place] [id number] Feb, Pulmonary emphysema, unspecified emphysema type J43.9 ; Dysthymia F34.1 ; Lumbago with sciatica, right side M54.41 and Other chronic pain G89.29 [facility] Silverman [facility] [id number], [place] [id number] Feb, [facility] Silverman [facility] [id number], [place] [id number] Nov, [facility] Silverman [facility] [id number], [place] [id number] Nov, Chronic obstructive pulmonary disease, unspecified COPD type J44.9 ; Encounter for immunization Z23 ; Hyperlipidemia, unspecified hyperlipidemia E78.5 ; Coronary artery disease involving [place] coronary artery of [place] heart without angina pectoris I25.10 and Anhedonia R45.84 [facility] MILLANL[facility]LL [address] [place] [address] [id number], [place] [id number] Jul, Coronary atherosclerosis of unspecified type of vessel, [place] or graft 414.00 ; Mixed hyperlipidemia 272.2 ; COPD (chronic obstructive pulmonary disease) 496 ; Obesity 278.00 and Bipolar disorder 296.80 [facility] M[facility]ANL[facility]LL Theodore[address] [place] [address] [id number], [place] [id number] June, Coronary atherosclerosis of unspecified type of vessel, [place] or graft 414.00 ; Mixed hyperlipidemia 272.2 ; Metabolic syndrome 277.7 ; COPD ( chronic obstructive pulmonary disease) 496 and Elevated liver enzymes 790.5 [facility]US[facility] Jaimes[address] [place] [address] [id number], [place] [address] May, COPD with acute exacerbation 491.21 and Tobacco abuse 305.1 [facility] [address]005[address] [address] May, [facility] [id number] [place] [address]- 6259 May, [facility] [id number] [place] [address]- 2688 Apr, [facility] [id number] [place] [address]- 0707 Apr, [facility] [id number] [place] [address]- 1134 Apr, [facility] [place] [facility] [address] [id number] [place] [address]- 6412 Apr, [facility] [place] [facility] [address] [id number] [place] [address]- 9673 Feb, [facility] [place] [facility] [address] [id number] [place] [address]- 8581 Feb, [facility] [place] [facility] [address] [id number] [place] [address]- 5898 Feb, [facility] [place] [facility] [address] [id number] [place] [address]- 5410 Feb, [facility] [place] [facility] [address] [id number] [place] [address]- 4444 Dec, [facility] [place] [facility] [address] [id number] [place] [address]- 5861 Dec, [facility] [place] [facility] [address] [id number][place] [address]- 9409 Nov, [facility] [place] [facility] [address] [id number] [place] [address]- 3311 23 Nov, 2012 [facility] [place] [facility] [address] [id number][place] [address]- 6396 18 Nov, 2012 [facility] [place] [facility] [address] [id number][place] [address]- 1013 18 Nov, 2012 [facility] [place] [facility] [address] [id number], [place] [address]- 6733 16 Nov, 2012 [facility] [place] [facility] [address] [id number], [place] [address]- 6677 16 Nov, 2012 [facility] [place] [facility] [address] [id number], [place] [address]- 9092 11 Nov, 2012 [facility] [place] [facility] [address] [id number][place] [address]- 9958 11 Nov, 2012 [facility] [place] [facility] [address] [id number] [place] [address]- 6995 08 Nov, 2012 [facility] [address] [id number] [place] [address]- 8695 Aug, [facility] [place] [facility] [address] [id number] [place] [address]- 1456 Aug, [facility] [address] [id number] [place] [address]- 4846 Aug, [facility] [place] [facility] [address] [id number] [place] [address]- 3603 May, [facility] [address] [id number] [place] [address]- 2145 May, [facility] [place] [facility] [address] [id number] [place] [address]- 1251 May, [facility] [address] [id number] [place] [address]- 5192 May, [facility] [address] [id number] [place] [address]- 7633 May, [facility] [place] [facility] [address] [id number] [place] [address]- 0022 May, [facility] [address] [id number] [place] [address]- 7360 May, [facility] [place] [facility] [address] [id number] [place] [address]- 5292 May, [facility] [place] [facility] [address] [id number] [place] [address]- 7241 Apr, [facility] [place] [facility] [address] [id number] [place] [address]- 4345 Mar, [facility] [place] [facility] [address] [id number] [place] [address]- 5709 Feb, [facility] [place] [facility] [address] [id number] [place] [address]- 3528 Feb, [facility] [address] [id number] [address]- 56[address] Jan, [facility] [address]65100[place], [place] [address]- 6062 Jan, [facility] [address] [facility] [id number][place]- 1036 Jan, [facility] [address] [place] [address]- 3918 Jan, [facility] [address] [facility] [id number], [place] [address]- 9415 Jan, [facility] [address]65100[place], [place] [address]- 3877 Jan, [facility] [address]65100[place], [place] [address]- 7816 Jan, [facility] [address] [place] [address]- 1362 Nov, [facility] [address]65100[place], [place] [address]- 7441 Nov, [facility] [address]65100[place], [place] [address]- 3973 Nov, [facility] [address] [id number], [place] [address]- 8013 Jul, IMMUNIZATIONS No Known Immunizations SOCIAL HISTORY Never Assessed REASON FOR VISIT Establish Care, has a few concerns julian king PLAN OF CARE Activity Details Follow Up 4 Weeks Reason:depression VITAL SIGNS Height 60 in 2017-03-11 Weight 204.0 lbs 2017-03-11 Temperature 99.5 degrees Fahrenheit 2017-03-11 Heart Rate 69 bpm 2017-03-11 Respiratory Rate 18 2017-03-11 Oximetry 96 % 2017-03-11 BMI 39.84 kg/m2 2017-03-11 Blood pressure systolic 160 mmHg 2017-03-11 Blood pressure diastolic 82 mmHg 2017-03-11 MEDICATIONS Medication Instructions Dosage Frequency Start Date End Date Duration Status Mucinex Active Simvastatin 20 MG Orally Once a day 1 tablet in the evening 24h Jul, 90 days Not-Taking Spiriva HandiHaler 18 MCG Inhalation Once a day 1 capsule 24h June, 30 days Not-Taking Proventil HFA 108 (90 Base) MCG/ACT Inhalation 4 times a day 2 puffs as needed for wheezing/cough 6h Feb, Active Advair Diskus 500-50 MCG/DOSE Inhalation Twice a day 1 puff 12h June, 30 days Not-Taking Aspirin 81 MG Orally Once a day 24h Not-Taking Celebrex 100 mg Orally Once a day 1-2 capsule with food as needed for pain 24h Feb, Active Cymbalta 30 MG Orally Once a day 1 capsule 24h Feb, 30 day(s) Active Spiriva HandiHaler 18 MCG Inhalation Once a day 1 capsule 24h Feb, Active RESULTS No Results PROCEDURES Procedure Date Ordered Result Body Site ROUTINE VENIPUNCTURE 2017-03-11 N/A MEASURE BLOOD OXYGEN LEVEL Mar 11, 2017 [facility] Mar 11, 2017 INSTRUCTIONS MEDICATIONS ADMINISTERED No Known Medications [...] History cholecystectomy 1990 Surgical History pacemaker 2006 Hospitalization History Surgery(s) only
--- OUTSIDE RECORDS SUMMARY | 2018-03-08 10:08 | XMS REPORT ---
Author Author CARLITOS KEYS [facility] Address [address] [place] [address] Care Team Providers Care Passenger Rate Clerk Name Role Phone CARLITOS KEYS Unavailable PROBLEMS Type Condition ICD9-CM Code QYC23-YT Code Onset Dates Condition Status SNOMED Code Problem Pulmonary emphysema, unspecified emphysema type J43.9 Active 71469662 Problem Other chronic pain G89.29 Active 39728756 Problem Lumbago with sciatica, right side M54.41 Active 562189153 Problem Hyperlipidemia, unspecified hyperlipidemia E78.5 Active 17150419 Problem Coronary artery disease involving newhalen coronary artery of newhalen heart without angina pectoris I25.10 Active 8045595110520 Problem Chronic obstructive pulmonary disease, unspecified COPD type J44.9 Active 20145040 Problem Anhedonia R45.84 Active 15519347 Problem PAD (peripheral artery disease) I73.9 Active 582628361 Problem Mitral valve disorder I05.9 Active 49679317 Problem Hypertension, essential I10 Active 47413018 Problem Dysthymia F34.1 Active 19457249 Problem Pacemaker Z95.0 Active 537238526 Problem Hyperglycemia R73.9 Active 17349860 ALLERGIES No Information ENCOUNTERS Encounter Location Date Diagnosis [facility] [employer] [facility] [address] [id number][place] [id number] Sep, [facility]LL[place] [address] [facility] [address] [id number], [place] [address] Jul, [facility]ang[facility] [employer] [facility] [address] [id number], [place] [address] June, Chest pain R07.9 ; Dyspnea on exertion R06.09 ; CAD (coronary artery disease) I25.10 ; Mitral valve disorder I05.9 ; Tobacco abuse Z72.0 ; Pacemaker Z95.0 ; PAD (peripheral artery disease) I73.9 and BMI 40.0-44.9, adult Z68.41 [facility] [address] [id number][place] [address] June, Dysthymia F34.1 [facility] [address] [id number], [place] [id number] Apr, [facility] [address] [id number], [place] [address] Apr, Coronary artery disease involving newhalen coronary artery of new[place] heart without angina pectoris I25.10 [facility] [address] [id number], [place] [address] Apr, [facility] [address] [id number], [place] [address] Apr, [facility] [address] [address] [id number], [place] [address] Apr, [facility] [address] [address] [id number][place] [address] Apr, Hyperglycemia R73.9 ; Chronic obstructive pulmonary disease, unspecified COPD type J44.9 ; Dysthymia F34.1 and BMI 40.0-44.9, adult Z68.41 [facility] [address] [id number], [place] [address] Mar, Pulmonary emphysema, unspecified emphysema type J43.9 and Dysthymia F34.1 [facility] [address] [id number], [place] [address] Feb, Hyperlipidemia, unspecified hyperlipidemia E78.5 ; Hypertension, essential I10 ; Hyperglycemia R73.9 and Pulmonary emphysema, unspecified emphysema type J43.9 [facility] [address] [id number], [place] [address] Feb, Pulmonary emphysema, unspecified emphysema type J43.9 ; Dysthymia F34.1 ; Lumbago with sciatica, right side M54.41 and Other chronic pain G89.29 [facility] [address] [id number], [place] [address] Feb, [facility]ala[facility] MILLANLOVELL Andra [facility] [id number], [place] [address] Nov, [facility] MILLANL[facility]LL Andra [facility] [id number], [place] [id number] Nov, Chronic obstructive pulmonary disease, unspecified COPD type J44.9 ; Encounter for immunization Z23 ; Hyperlipidemia, unspecified hyperlipidemia E78.5 ; Coronary artery disease involving newhalen coronary artery of newhalen heart without angina pectoris I25.10 and Anhedonia R45.84 [facility] [address] [id number], [place] [address] Jul, Coronary atherosclerosis of unspecified type of vessel, newhalen or graft 414.00 ; Mixed hyperlipidemia 272.2 ; COPD (chronic obstructive pulmonary disease) 496 ; Obesity 278.00 and Bipolar disorder 296.80 [facility] [address] [id number], [place] [address] June, Coronary atherosclerosis of unspecified type of vessel, newhalen or graft 414.00 ; Mixed hyperlipidemia 272.2 ; Metabolic syndrome 277.7 ; COPD ( chronic obstructive pulmonary disease) 496 and Elevated liver enzymes 790.5 [facility] [address] [id number], [place] [address] May, COPD with acute exacerbation 491.21 and Tobacco abuse 305.1 [facility] [id number] [place] [address] May, [facility] [id number] [place] [address]- 1276 May, [facility] [id number] [place] [address]- 2025 Apr, [facility] [address] [address] Apr, [facility] [id number] [place] [address]- 0814 Apr, [facility] [address] [address] Apr, [facility] [place] [facility] [address] [id number] [place] [address] Feb, [facility] [place] [facility] [address] [id number] [place] [address]- 6005 Feb, [facility] [place] [facility] [address] [id number] [place] [address]- 4453 Feb, [facility] [place] [facility] [address] [id number] [place] [address]- 7342 Feb, [facility] [place] [facility] [address] [id number] [place] [address]- 2710 Dec, [facility] [place] [facility] [address] [id number] [place] [address]- 2966 Dec, [facility] [place] [facility] [address] [id number] [place] [address]- 3764 Nov, [facility] [place] [facility] [address] [id number] [address]609 Nov, [facility] [place] [facility] [address] [id number] [address] Nov, [facility] [place] [facility] [address] [id number] [place] [address]- 9490 18 Nov, 2012 [facility] [place] [facility] [address] [id number] [address] 16 Nov, 2012 [facility] [place] [facility] [address] [id number] [address]- 9263 16 Nov, 2012 [facility] [place] [facility] [address] [id number] [place] [address]- 8820 11 Nov, 2012 [facility] [place] [facility] [address] [id number], [place] 537[place]- 4720 Nov, [facility] [place] [facility] [address] [id number] [address] 08 Nov, 2012 [facility] [place] [facility] [address] [id number] [place] [address] 5287 Aug, [facility] [address] [id number] [place] [address] Aug, [facility] [address] [id number] [place] [address]- 5986 Aug, [facility] [address] [id number] [place] [address]- 9620 May, [facility] [address] [id number] [place] [address]- 0781 May, [facility] [address] [id number] [place] [address]- 9857 May, [facility] [address] [id number] [place] [address]- 2995 May, [facility] [address] [id number] [place] [address]- 9653 May, [facility] [place] [facility] [address] [id number] [place] [address]- 5018 May, [facility] [address] [id number] [place] [address]- 0200 May, [facility] [place] [facility] [address] [id number] [place] [address]- 9418 May, [facility] [address] [id number] [place] [address]- 2696 Apr, [facility] [address] [id number] [place] [address]- 7484 Mar, [facility] [address] [id number] [place] [address]- 7306 Feb, [facility] [address] [id number] [place] [address]- 2546 Feb, [facility] [address] [id number] [place] Jan, [facility] [address] [id number], [place] [address]- 1537 Jan, [facility] [address] [facility] [id number] [address]- [address] Jan, [facility] [address] [id number], [place] [address]- 9710 Jan, [facility] [address] [facility] [id number], [place] [address]- 4290 Jan, [facility] [address] [facility] [id number], [place] [address]- 9314 Jan, [facility] [address] [facility] [id number], [place] [address]- 5106 Jan, [facility] [address]65100[place], [place] [address]- 7083 Nov, [facility] [address]65100[place], [place] [address]- 459[address] Nov, [facility] [address] [id number], [place] [address]- 3932 Nov, [facility] [address] [id number], [place] [address]- 9832 Jul, IMMUNIZATIONS No Known Immunizations SOCIAL HISTORY Never Assessed REASON FOR VISIT Test results PLAN OF CARE VITAL SIGNS MEDICATIONS Medication Instructions Dosage Frequency Start Date End Date Duration Status Atorvastatin Calcium 10 mg Orally Once a day 1 tablet 24h Feb, 90 days Active Lisinopril 10 mg Orally Once a day 1 tablet 24h Feb, 180 days Active Proventil HFA 108 (90 Base) MCG/ACT Inhalation 4 times a day 2 puffs as needed for wheezing/cough 6h Feb, Active RESULTS No Results PROCEDURES No Known [...]
--- OUTSIDE RECORDS SUMMARY | 2018-03-08 10:08 | XMS REPORT ---
Author Author LUDMILA CARLITOS [facility] Address [address] [place] [address] Care Team Providers Care Greige Goods Examiner Name Role Phone CARLITOS KEYS Unavailable PROBLEMS Type Condition ICD9-CM Code XSA63-QV Code Onset Dates Condition Status SNOMED Code Problem Pulmonary emphysema, unspecified emphysema type J43.9 Active 62958221 Problem Other chronic pain G89.29 Active 22485413 Problem Lumbago with sciatica, right side M54.41 Active 986432136 Problem Hyperlipidemia, unspecified hyperlipidemia E78.5 Active 74439350 Problem Coronary artery disease involving chalkyitsik coronary artery of chalkyitsik heart without angina pectoris I25.10 Active 2079854919795 Problem Chronic obstructive pulmonary disease, unspecified COPD type J44.9 Active 86544100 Problem Anhedonia R45.84 Active 20726795 Problem PAD (peripheral artery disease) I73.9 Active 851164681 Problem Mitral valve disorder I05.9 Active 42535937 Problem Hypertension, essential I10 Active 67261467 Problem Dysthymia F34.1 Active 75902739 Problem Pacemaker Z95.0 Active 888146603 Problem Hyperglycemia R73.9 Active 45801171 ALLERGIES No Information ENCOUNTERS Encounter Location Date Diagnosis [facility] [id number], [place] [id number] Sep, [facility] [employer] [address] [id number], [place] [id number] Aug, [facility] [id number], [place] [id number] Aug, [facility] [employer] [facility] [address] [id number], [place] [address] Aug, Hyperlipidemia, unspecified hyperlipidemia E78.5 ; Hypertension, essential I10 ; Pulmonary emphysema, unspecified emphysema type J43.9 ; Dysthymia F34.1 and Chronic obstructive pulmonary disease, unspecified COPD type J44.9 [facility] [address] [address] [id number], [place] [address] June, Chest pain R07.9 ; Dyspnea on exertion R06.09 ; CAD (coronary artery disease) I25.10 ; Mitral valve disorder I05.9 ; Tobacco abuse Z72.0 ; Pacemaker Z95.0 ; PAD (peripheral artery disease) I73.9 and BMI 40.0-44.9, adult Z68.[address] [facility] [address] [id number], [place] [address] June, Dysthymia F34.1 [facility] [address] [address] [id number], [place] [id number] Apr, [facility] [address] [address] [id number], [place] [address] Apr, Coronary artery disease involving chalkyitsik coronary artery of chalkyitsik heart without angina pectoris I25.10 [facility] [address] [address] [id number], [place] [address] Apr, [facility] [address] [id number], [place] [id number] Apr, [facility] [address] [address] [id number], [place] [id number] Apr, [facility] [address] [address] [id number], [place] [id number] Apr, Hyperglycemia R73.9 ; Chronic obstructive pulmonary disease, unspecified COPD type J44.9 ; Dysthymia F34.1 and BMI 40.0-44.9, adult Z68.41 [facility] [address] [id number], [place] [id number] Mar, Pulmonary emphysema, unspecified emphysema type J43.9 and Dysthymia F34.[address] [facility] [address] [id number], [place] [address] Feb, Hyperlipidemia, unspecified hyperlipidemia E78.5 ; Hypertension, essential I10 ; Hyperglycemia R73.9 and Pulmonary emphysema, unspecified emphysema type J43.[address] [id number], [place] [id number] Feb, Pulmonary emphysema, unspecified emphysema type J43.9 ; Dysthymia F34.1 ; Lumbago with sciatica, right side M54.41 and Other chronic pain G89.[address] [id number], [place] [id number] Feb, [address] [id number], [place] [id number] Nov, [address] [id number], [place] [address] Nov, Chronic obstructive pulmonary disease, unspecified COPD type J44.9 ; Encounter for immunization Z23 ; Hyperlipidemia, unspecified hyperlipidemia E78.5 ; Coronary artery disease involving chalkyitsik coronary artery of chalkyitsik heart without angina pectoris I25.10 and Anhedonia R45.[address] [id number], [place] [address] Jul, Coronary atherosclerosis of unspecified type of vessel, chalkyitsik or graft 414.00 ; Mixed hyperlipidemia 272.2 ; COPD (chronic obstructive pulmonary disease) 496 ; Obesity 278.00 and Bipolar disorder 296.[address] [id number], [place] [address] June, Coronary atherosclerosis of unspecified type of vessel, chalkyitsik or graft 414.00 ; Mixed hyperlipidemia 272.2 ; Metabolic syndrome 277.7 ; COPD ( chronic obstructive pulmonary disease) 496 and Elevated liver enzymes 790.5 [address] [id number], [place] [address] May, COPD with acute exacerbation 491.21 and Tobacco abuse 305.1 [facility] [address] [id number], [place] [address]- [address]178 May, [facility] [address]00565100[place], [place] [address]- 0838 May, [facility] [address] [facility] [id number] [place] [address]- 8426 Apr, [facility] [place] [facility] [address] [id number] [place] [address]- 8162 Apr, [facility] [place] [facility] [address] [id number] [place] [address]- 5722 Apr, [facility] [place] [facility] [address] [id number] [place] [address]- 2231 Apr, [facility] [place] [facility] [address] [id number] [place] [address]- 4308 Feb, [facility] [place] [facility] [address] [id number] [place] [address]- 6597 Feb, [facility] [place] [facility] [address] [id number] [place] [address]- 0313 Feb, [facility] [place] [facility] [address] [id number] [place] [address]- 9672 Feb, [facility] [place] [facility] [address] [id number] [place] [address]- 5621 Dec, [facility] [place] [facility] [address] [id number] [place] [address]- 0172 Dec, [facility] [place] [facility] [address] [id number] [place] [address]- 2273 Nov, [facility] [place] [facility] [address] [id number] [place] [address]- 9115 23 Nov, 2012 [facility] [place] [facility] [address] [id number] [place] [address]- 5969 18 Nov, 2012 [facility] [place] [facility] [address] [id number] [place] [address]- 6293 18 Nov, 2012 [facility] [place] [facility] [address] [id number] [place] [address]- 2546 16 Nov, 2012 [facility] [place] [facility] [address] [id number] [place] [address]- 9588 Nov, [facility] [address] [id number] [place] [address]- 7833 Nov, [facility] [place] [facility] [address] [id number] [place] [address]- 8667 Nov, [facility] [place] [facility] [address] [id number] [place] [address]- 0727 08 Nov, 2012 [facility] [place] [facility] [address] [id number] [place] [address]- 2579 Aug, [facility] [place] [facility] [address] [id number] [place] [address]- 2431 Aug, [facility] [place] [facility] [address] [id number] [place] [address]- 1039 Aug, [facility] [place] [facility] [address] [id number] [place] [address]- 9812 May, [facility] [place] [facility] [address] [id number] [place] [address]- 0572 May, [facility] [place] [facility] [address] [id number] [place] [address]- 8239 May, [facility] [place] [facility] [address] [id number] [place] [address]- 1801 May, [facility] [place] [facility] [address] [id number] [place] [address]- 7862 May, [facility] [place] [facility] [address] [id number] [place] [address]- 0587 05 May, 2011 [facility] [place] [facility] [address] [id number] [place] [address]- 9222 May, [facility] [place] [facility] [address] [id number] [place] [address]- 0885 May, [facility] [place] [facility] [address] [id number] [place] [address]- 9193 Apr, [facility] [place] [facility] [address]00565100[place], [place] [address]- 0026 08 Mar, 2011 [facility] [address]00565100[place], [place] [address] Feb, [facility] [address]00565100[place], [place] [address]- 7626 Feb, [facility] [address]00565100[place], [place] [address]- 7146 Jan, [facility] [address]00565100[place], [place] [address]- 8332 Jan, [facility] [address] [place] [address]- 6011 Jan, [facility] [address]00565100[place], [place] [address]- 9426 Jan, [facility] [address] [place] [address]- 5899 Jan, [facility] [address]00565100[place], [place] [address]- 7379 Jan, [facility] [address]65100[place], [place] [address]- 4595 Jan, [facility] [address]65100[place], [place] [address]- 8546 Nov, [facility] [address]00565100[place], [place] [address]- 5311 Nov, [facility] [address]00565100[place], [place] [address]- 7751 Nov, [facility] [address] [id number], [place] [address]- 4281 Jul, IMMUNIZATIONS No Known Immunizations SOCIAL HISTORY Never Assessed REASON FOR VISIT refills PLAN OF CARE VITAL SIGNS MEDICATIONS Medication Instructions Dosage Frequency Start Date End Date Duration Status Spiriva HandiHaler 18 MCG Inhalation Once a day 1 capsule 24h Feb, Active Cymbalta 30 MG Orally Once a day 1 capsule 24h Feb, 30 day(s) Active RESULTS No Results PROCEDURES No Known procedures INSTRUCTIONS MEDICATIONS ADMINISTERED No Known Medications MEDICAL (GENERAL) HISTORY Type Description Date Medical History hypertension Medical History fatty liver Medical History depression Medical History bipolar disorder Medical History obsessive-compulsive personality disorder Medical History hyperlipidemia Medical History 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
--- OUTSIDE RECORDS SUMMARY | 2018-03-08 10:08 | XMS REPORT ---
Author Author CARLITOS KEYS Organization [employer] Address Unknown Phone Unavailable Care Team Providers Care Passport Support Associate Name Role Phone CARLITOS KEYS CP Unavailable Allergies No Known Allergies Problems Problem Type Condition Code Onset Dates Condition Status Problem Impaired fasting glucose 790.21 Active Problem Mixed hyperlipidemia 272.2 Active Problem Hyperlipidemia, unspecified hyperlipidemia E78.5 Active Problem Coronary artery disease involving soboba coronary artery of soboba heart without angina pectoris I25.10 Active Problem Chronic obstructive pulmonary disease, unspecified COPD type J44.9 Active Problem 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
--- OUTSIDE RECORDS SUMMARY | 2018-03-08 10:08 | XMS REPORT ---
Author Author LUDMILA CARLITOS [facility] Address [address] [place] [address] Care Team Providers Care Durable Medical Equipment Technician Name Role Phone CARLITOS KEYS Unavailable PROBLEMS Type Condition ICD9-CM Code TRV01-JG Code Onset Dates Condition Status SNOMED Code Problem Pulmonary emphysema, unspecified emphysema type J43.9 Active 72411863 Problem Other chronic pain G89.29 Active 68902135 Problem Lumbago with sciatica, right side M54.41 Active 826094707 Problem Hyperlipidemia, unspecified hyperlipidemia E78.5 Active 87064775 Problem Coronary artery disease involving [place] coronary artery of [place] heart without angina pectoris I25.10 Active 6318935697152 Problem Chronic obstructive pulmonary disease, unspecified COPD type J44.9 Active 72936090 Problem Anhedonia R45.84 Active 77538793 Problem PAD (peripheral artery disease) I73.9 Active 174412634 Problem Mitral valve disorder I05.9 Active 15444376 Problem Hypertension, essential I10 Active 55960924 Problem Dysthymia F34.1 Active 72372794 Problem Pacemaker Z95.0 Active 262360654 Problem Hyperglycemia R73.9 Active 36404401 ALLERGIES Substance Reaction Event Type Date Status [place] (Diagnostic) hives Drug Allergy Feb, Active Morphine Sulfate violent behavior Drug Allergy Feb, Active ENCOUNTERS Encounter Location Date Diagnosis [facility] [address] [facility] [address] [id number] [place] [id number] Sep, [facility] [place] [id number] [facility] [address] [id number] [place]LLS[place] [id number] Jul, [facility] [place] [address]Victiv [facility] [address] [id number] WELLS[place] [id number] June, Chest pain R07.9 ; Dyspnea on exertion R06.09 ; CAD (coronary artery disease) I25.10 ; Mitral valve disorder I05.9 ; Tobacco abuse Z72.0 ; Pacemaker Z95.0 ; PAD (peripheral artery disease) I73.9 and BMI 40.0-44.9, adult Z68.41 [facility] [address] [id number] [place] [id number] June, Dysthymia F34.[address] [facility] [address] [id number] [place] [id number] Apr, [facility] [address] [id number] [place] [id number] Apr, Coronary artery disease involving [place] coronary artery of [place] heart without angina pectoris I25.10 [facility] [address] [id number] [place] [id number] Apr, [facility] [address] [id number] [place]LL[place] [id number] Apr, [facility] [address] [id number] [place]LLS[place] [id number] Apr, [facility] [address] [id number] [place]LLS[place] [id number] Apr, Hyperglycemia R73.9 ; Chronic obstructive pulmonary disease, unspecified COPD type J44.9 ; Dysthymia F34.1 and BMI 40.0-44.9, adult Z68.41 [facility] [email or web address] [id number] WELLS[place] [id number] Mar, Pulmonary emphysema, unspecified emphysema type J43.9 and Dysthymia F34.1 [facility] [id number] [place] [id number] Feb, Hyperlipidemia, unspecified hyperlipidemia E78.5 ; Hypertension, essential I10 ; Hyperglycemia R73.9 and Pulmonary emphysema, unspecified emphysema type J43.9 [facility] [email or web address] [id number] [place] [id number] Feb, Pulmonary emphysema, unspecified emphysema type J43.9 ; Dysthymia F34.1 ; Lumbago with sciatica, right side M54.41 and Other chronic pain G89.29 [facility]IN[facility] [id number] WELLS[place] [id number] Feb, [facility] [address] [facility] [id number] WELLS, [place] [id number] Nov, [facility] [id number] [place]LL[place] [id number] Nov, Chronic obstructive pulmonary disease, unspecified COPD type J44.9 ; Encounter for immunization Z23 ; Hyperlipidemia, unspecified hyperlipidemia E78.5 ; Coronary artery disease involving [place] coronary artery of [place] heart without angina pectoris I25.10 and Anhedonia R45.84 [facility]INMalaika [place] Theodore[address] [place] [address] [id number] [place]LL[place] [id number] Jul, Coronary atherosclerosis of unspecified type of vessel, sa[place] or graft 414.00 ; Mixed hyperlipidemia 272.2 ; COPD (chronic obstructive pulmonary disease) 496 ; Obesity 278.00 and Bipolar disorder 296.80 [facility]INMalaika [place] Theodore[address] [place] [address] [id number] [place]LLS[place] [id number] June, Coronary atherosclerosis of unspecified type of vessel, sa[place] or graft 414.00 ; Mixed hyperlipidemia 272.2 ; Metabolic syndrome 277.7 ; COPD ( chronic obstructive pulmonary disease) 496 and Elevated liver enzymes 790.5 [facility]INMalaika Jaimes[address] [place] [address] [id number] WELLS[place] [id number] May, COPD with acute exacerbation 491.21 and Tobacco abuse 305.1 [facility] [address]00565[address] [address] May, [facility] [id number] [place] [address] May, [facility] [id number] [place] [id number] Apr, [facility] [id number] [place] [id number] Apr, [facility] [id number] [place] [id number] Apr, [facility] [place] [facility] [address] [id number] [place] [address] Apr, [facility] [place] [facility] [address] [id number] [place] [address] Feb, [facility] [place] [facility] [address] [id number] [place] [address] Feb, [facility] [place] [facility] [address] [id number] [place] [address] Feb, [facility] [place] [facility] [address] [id number] [place] [address] Feb, [facility] [place] [facility] [address] [id number] [place] [address] Dec, [facility] [place] [facility] [address] [id number] [place] [address] Dec, [facility] [place] [facility] [address] [id number], [place] [address] Nov, [facility] [place] [facility] [address] [id number] [place] [address] 23 Nov, 2012 [facility] [place] [facility] [address] [id number], [place] [address] 18 Nov, 2012 [facility] [place] [facility] [address] [id number], [place] [address] 18 Nov, 2012 [facility] [place] [facility] [address] [id number], [place] [address] 16 Nov, 2012 [facility] [place] [facility] [address] [id number], [place] [address] 16 Nov, 2012 [facility] [place] [facility] [address] [id number], [place] [address] 11 Nov, 2012 [facility] [place] [facility] [address] [id number], [place] [address] 11 Nov, 2012 [facility] [place] [facility] [address] [id number] [place] [address] 08 Nov, 2012 [facility] [address] [id number] [place] [address] Aug, [facility] [place] [facility] [address] [id number] [place] [address] Aug, [facility] [address] [id number] [place] [address] Aug, [facility] [place] [facility] [address] [id number] [place] [address] May, [facility] [address] [id number] [place] [address] May, [facility] [place] [facility] [address] [id number] [place] [address] May, [facility] [address] [id number] [place] [address] May, [facility] [address] [id number] [place] [address] May, [facility] [place] [facility] [address] [id number] [place] [address] May, [facility] [address] [id number] [place] [address] 9584 May, [facility] [place] [facility] [address] [id number] [place] [address] May, [facility] [place] [facility] [address] [id number] [place] [address] Apr, [facility] [place] [facility] [address] [id number] [place] [address] Mar, [facility] [place] [facility] [address] [id number] [place] [address] Feb, [facility] [place] [facility] [address] [id number] [place] [address]- [address] Feb, [facility] [address] [id number], [place] [address] Jan, [facility] [address]65[address], [place] [address] Jan, [facility] [address] [id number], [place] [address] Jan, [facility] [address]65[address] [address] Jan, [facility] [address] [id number] [address] Jan, [facility] [address]65100[place], [place] [address] Jan, [facility] [address]65100[place], [place] [address] Jan, [facility] [address]65100[place], [place] [address] Nov, [facility] [address]65100[place], [place] [address] Nov, [facility] [address] [id number], [place] [address] Nov, [facility] [address] [id number], [place] [address] Jul, IMMUNIZATIONS No Known Immunizations SOCIAL HISTORY Never Assessed REASON FOR VISIT [facility] Updated--[facility] RahwayNést[facility] PLAN OF CARE VITAL SIGNS MEDICATIONS Medication Instructions Dosage Frequency Start Date End Date Duration Status Spiriva HandiHaler 18 MCG Inhalation Once a day 1 capsule 24h June, 30 days Not-Taking Advair Diskus 500-50 MCG/DOSE Inhalation Twice a day 1 puff 12h June, 30 days Not-Taking Aspirin 81 MG Orally Once a day 24h Not-Taking Simvastatin 20 MG Orally Once a day 1 tablet in the evening 24h Jul, 90 days Not-Taking RESULTS No Results PROCEDURES No Known procedures [...]
--- OUTSIDE RECORDS SUMMARY | 2018-03-08 10:09 | XMS REPORT | Continuity of Care Document ---
Author Author Formerly [facility], [facility] of [facility] Address Unknown Phone Unavailable Allergies Active Description Code Type Severity Reaction Onset Reported/Identified Relationship to Patient Clinical Status Yes morphine Drug Allergy N/A N/A 05/05/2010 Yes STRAWBERRY Food Allergy N/A N/A 05/05/2010 Yes morphine [id number] Drug Allergy Mild N/A 10/04/2014 Yes strawberry [id number] Drug Allergy Mild HIVES 10/04/2014 Yes No Known Drug Allergies [id number] Drug Allergy Unknown N/A 10/04/2014 Medications There is no data. Problems Date Dx Coded Attending Type Code Diagnosis Diagnosed By 05/05/2010 NAYELI SHIPLEY SILVESTRE K 354.0 CARPAL TUNNEL SYNDROME 05/05/2010 NAYELI SHIPLEY SILVESTRE K 724.3 SCIATICA 05/05/2010 NAYELI SHIPLEY SILVESTRE K 354.0 CARPAL TUNNEL SYNDROME 05/05/2010 NAYELI SHIPLEY SILVESTRE K 724.3 SCIATICA 05/05/2010 NAYELI SHIPLEY SILVESTRE K 354.0 CARPAL TUNNEL SYNDROME 05/05/2010 TYLER DO SILVESTRE K 724.3 SCIATICA 05/05/2010 TERA SEVERINO APRN N 354.0 CARPAL TUNNEL SYNDROME 05/05/2010 TERA SEVERINO APRN N 724.3 SCIATICA 05/05/2010 RUPINDER HAM APRN E 354.0 CARPAL TUNNEL SYNDROME 05/05/2010 GUS HAM APRNE E 724.3 SCIATICA 06/02/2010 NAYELI SHIPLEY SILVESTRE K 272.4 HYPERLIPIDEMIA 06/02/2010 NAYELI SHIPLEY SILVESTRE K 296.90 EPISODIC MOOD DISORDERS 06/02/2010 NAYELI SHIPLEY SILVESTRE K 401.1 ESSENTIAL HYPERTENSION BENIGN 06/02/2010 NAYELI SHIPLEY SILVESTRE K 427.89 SINUS BRADYCARDIA 06/02/2010 NAYELI SHIPLEY SILVESTRE K 440.9 ATHEROSCLEROSIS 06/02/2010 NAYELI SHIPLEY SILVESTRE K 272.4 HYPERLIPIDEMIA 06/02/2010 TYLER DO, SILVESTRE K 296.90 EPISODIC MOOD DISORDERS 06/02/2010 TYLER DO, SILVESTRE K 401.1 ESSENTIAL HYPERTENSION BENIGN 06/02/2010 TYLER DO, SILVESTRE K 427.89 SINUS BRADYCARDIA 06/02/2010 TYLER DO, SILVESTRE K 440.9 ATHEROSCLEROSIS 06/02/2010 TYLER DO, SILVESTRE K 272.4 HYPERLIPIDEMIA 06/02/2010 TYLER DO, SILVESTRE K 296.90 EPISODIC MOOD DISORDERS 06/02/2010 TYLER DO, SILVESTRE K 401.1 ESSENTIAL HYPERTENSION BENIGN 06/02/2010 TYLER DO, SILVESTRE K 427.89 SINUS BRADYCARDIA 06/02/2010 TYLER DO, SILVESTRE K 440.9 ATHEROSCLEROSIS 06/02/2010 FRANCISCO CASHERO AUTOMOTIVE SALES SPECIALIST, TERA N 272.4 HYPERLIPIDEMIA 06/02/2010 FRANCISCO CASHERO AUTOMOTIVE SALES SPECIALIST, TERA N 296.90 EPISODIC MOOD DISORDERS 06/02/2010 FRANCISCO CASHERO AUTOMOTIVE SALES SPECIALIST, TERA N 401.1 ESSENTIAL HYPERTENSION BENIGN 06/02/2010 FRANCISCO CASHERO AUTOMOTIVE SALES SPECIALIST, TERA N 427.89 SINUS BRADYCARDIA 06/02/2010 FRANCISCO CASHERO AUTOMOTIVE SALES SPECIALIST, TERA N 440.9 ATHEROSCLEROSIS 06/02/2010 HELLWIG AUTOMOTIVE SALES SPECIALIST, RUPINDER E 272.4 HYPERLIPIDEMIA 06/02/2010 HELLWIG AUTOMOTIVE SALES SPECIALIST, RUPINDER E 296.90 EPISODIC MOOD DISORDERS 06/02/2010 HELLWIG AUTOMOTIVE SALES SPECIALIST, RUPINDER E 401.1 ESSENTIAL HYPERTENSION BENIGN 06/02/2010 HELLWIG AUTOMOTIVE SALES SPECIALIST, RUPINDER E 427.89 SINUS BRADYCARDIA 06/02/2010 HELLWIG AUTOMOTIVE SALES SPECIALIST, RUPINDER E 440.9 ATHEROSCLEROSIS 06/23/2010 TYLER DO, SILVESTRE K 296.80 BIPOLAR DISORDER NOS 06/23/2010 TYLER DO, SILVESTRE K 305.1 NICOTINE DEPENDENCE 06/23/2010 TYLER DO, SILVESTRE K 780.4 dizziness 06/23/2010 TYLER DO, SILVESTRE K 296.80 BIPOLAR DISORDER NOS 06/23/2010 TYLER DO, SILVESTRE K 305.1 NICOTINE DEPENDENCE 06/23/2010 TYLER DO, SILVESTRE K 780.4 dizziness 06/23/2010 TYLER DO, SILVESTRE K 296.80 BIPOLAR DISORDER NOS 06/23/2010 TYLER DO, SILVESTRE K 305.1 NICOTINE DEPENDENCE 06/23/2010 TYLER DO, SILVESTRE K 780.4 dizziness 06/23/2010 FRANCISCO CASHERO AUTOMOTIVE SALES SPECIALIST, TERA N 296.80 BIPOLAR DISORDER NOS 06/23/2010 FRANCISCOROOSEVELT AMAYA JENN TERA N 305.1 NICOTINE DEPENDENCE 06/23/2010 NOLAN AMAYA APRN TERA N 780.4 dizziness 06/23/2010 RUPINDER HAM APRN E 296.80 BIPOLAR DISORDER NOS 06/23/2010 GUS HAM APRNE E 305.1 NICOTINE DEPENDENCE 06/23/2010 RUPINDER HAM APRN E 780.4 dizziness 07/15/2010 TYLER DO, SILVESTRE K 309.81 AN PTSD 07/15/2010 TYLER DO, SILVESTRE K 309.81 AN PTSD 07/15/2010 TYLER DO, SILVESTRE K 309.81 AN PTSD 07/15/2010 TERA SEVERINO APRN N 309.81 AN PTSD 07/15/2010 ANGELO HAM APRNSIE E 309.81 AN PTSD 07/28/2010 TYLER DO, SILVESTRE K 277.7 DYSMETABOLIC SYNDROME X 07/28/2010 TYLER DO, SILVESTRE K 530.81 ESOPHAGEAL REFLUX 07/28/2010 TYLER DO, SILVESTRE K 277.7 DYSMETABOLIC SYNDROME X 07/28/2010 TYLER DO, SILVESTRE K 530.81 ESOPHAGEAL REFLUX 07/28/2010 TYLER DO, SILVESTRE K 277.7 DYSMETABOLIC SYNDROME X 07/28/2010 TYLER DO, SILVESTRE K 530.81 ESOPHAGEAL REFLUX 07/28/2010 FRANCISCO MONIQUE JERNIGANNéstor TERA N 277.7 DYSMETABOLIC SYNDROME X 07/28/2010 FRANCISCO RASHAADTERA BAUM APRN N 530.81 ESOPHAGEAL REFLUX 07/28/2010 RUPINDER HAM APRN E 277.7 DYSMETABOLIC SYNDROME X 07/28/2010 GUS HAM APRNE E 530.81 ESOPHAGEAL REFLUX 08/12/2010 TYLER DO, SILVESTRE K 300.02 GENERALIZED ANXIETY DISORDER 08/12/2010 TYLER DO, SILVESTRE K 300.02 GENERALIZED ANXIETY DISORDER 08/12/2010 TYLER DO, SILVESTRE K 300.02 GENERALIZED ANXIETY DISORDER 08/12/2010 NOLAN RASHAADTERA BAUM APRN N 300.02 GENERALIZED ANXIETY DISORDER 08/12/2010 GUS HAM APRNE E 300.02 GENERALIZED ANXIETY DISORDER 08/20/2010 TYLER DO, SILVESTRE K 719.46 Joint Pain, Localized In The Knee 08/20/2010 TYLER DO, SILVESTRE K 719.46 Joint Pain, Localized In The Knee 08/20/2010 TYLER DO, SILVESTRE K 719.46 Joint Pain, Localized In The Knee 08/20/2010 TERA SEVERINO APRN N 719.46 Joint Pain, Localized In The Knee 08/20/2010 RUPINDER HAM APRN E 719.46 Joint Pain, Localized In The Knee 12/02/2010 TYLER DO, SILVESTRE K 780.57 SLEEP APNEA 12/02/2010 TYLER DO, SILVESTRE K 780.57 SLEEP APNEA 12/02/2010 TYLER DO, SILVESTRE K 780.57 SLEEP APNEA 12/02/2010 TERA SEVERINO APRN N 780.57 SLEEP APNEA 12/02/2010 RUPINDER HAM APRN E 780.57 SLEEP APNEA 01/15/2011 TYLER DO, SILVESTRE K 132.0 Pediculosis Capitis 01/15/2011 TYLER DO, SILVESTRE K 327.23 SLEEP APNEA OBSTRUCTIVE 01/15/2011 TYLER DO, SILVESTRE K 132.0 Pediculosis Capitis 01/15/2011 TYLER DO, SILVESTRE K 327.23 SLEEP APNEA OBSTRUCTIVE 01/15/2011 TYLER DO, SILVESTRE K 132.0 Pediculosis Capitis 01/15/2011 TYLER DO, SILVESTRE K 327.23 SLEEP APNEA OBSTRUCTIVE 01/15/2011 BRIT SEVERINO APRNCY N 132.0 Pediculosis Capitis 01/15/2011 BRIT SEVERINO APRNCY N 327.23 SLEEP APNEA OBSTRUCTIVE 01/15/2011 RUPINDER HAM APRN E 132.0 Pediculosis Capitis 01/15/2011 RUPINDER HAM APRN E 327.23 SLEEP APNEA OBSTRUCTIVE 02/02/2011 TYLER DO, SILVESTRE K 465.9 Upper Respiratory Infection 02/02/2011 TYLER DO, SILVESTRE K 465.9 Upper Respiratory Infection 02/02/2011 TYLER DO, SILVESTRE K 465.9 Upper Respiratory Infection 02/02/2011 TERA SEVERINO APRN N 465.9 Upper Respiratory Infection 02/02/2011 RUPINDER HAM APRN E 465.9 Upper Respiratory Infection 05/18/2011 TYLER DO SILVESTRE K 611.72 BREAST LUMP OR MASS 05/18/2011 TYLER DO, SILVESTRE K 611.72 BREAST LUMP OR MASS 05/18/2011 TYLER DO, SILVESTRE K 611.72 BREAST LUMP OR MASS 05/18/2011 NOLAN AMAYA APRN TERA N 611.72 BREAST LUMP OR MASS 05/18/2011 RUPINDER HAM APRN E 611.72 BREAST LUMP OR MASS 09/05/2011 TYLER DO, SILVESTRE K 919.5 INSECT BITE INFECTED 09/05/2011 TYLER DO, SILVESTRE K 919.5 INSECT BITE INFECTED 09/05/2011 TYLER DO, SILVESTRE K 919.5 INSECT BITE INFECTED 09/05/2011 TERA SEVERINO APRN N 919.5 INSECT BITE INFECTED 09/05/2011 RUPINDER HAM APRN E 919.5 INSECT BITE INFECTED 11/22/2012 TYLER DO, SILVESTRE K 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.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 11/22/2012 TYLER DO, SILVESTRE K 414.00 CAD 11/22/2012 TYLER DO, SILVESTRE K V04.81 FLU SHOT 11/22/2012 TYLER DO, SILVESTRE K 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.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 11/22/2012 TYLER DO, SILVESTRE K 414.00 CAD 11/22/2012 TYLER DO, SILVESTRE K V04.81 FLU SHOT 11/22/2012 TYLER DO, SILVESTRE K 238.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 11/22/2012 TYLER DO, SILVESTRE K 414.00 CAD 11/22/2012 TYLER DO, SILVESTRE K V04.81 FLU SHOT 11/22/2012 TERA SEVERINO APRN N 238.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 11/22/2012 TERA SEVERINO APRN N 414.00 CAD 11/22/2012 TERA SEVERINO APRN N V04.81 FLU SHOT 11/22/2012 RUPINDER HAM APRN E 238.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 11/22/2012 RUPINDER HAM APRN E 414.00 CAD 11/22/2012 GUS HAM APRNE E V04.81 FLU SHOT 11/30/2012 TYLER DO, SILVESTRE K 272.2 MIXED HYPERLIPIDEMIA 11/30/2012 TYLER DO, SILVESTRE K 709.9 UNSPECIFIED DISORDER OF SKIN AND SUBCUTANEOUS TISSUE 11/30/2012 ANGELO TYLER DOA K 790.21 IMPAIRED FASTING GLUCOSE 11/30/2012 TYLER , SILVESTRE K 272.2 MIXED HYPERLIPIDEMIA 11/30/2012 TYLER , SILVESTRE K 709.9 UNSPECIFIED DISORDER OF SKIN AND SUBCUTANEOUS TISSUE 11/30/2012 ANGELO TYLER DOA K 790.21 IMPAIRED FASTING GLUCOSE 11/30/2012 FRANCISCOROOSEVELT AMAYA APRTERA Palm N 272.2 MIXED HYPERLIPIDEMIA 11/30/2012 FRANCISCO CASHBAUTISTA JERNIGANTERA Palm N 709.9 UNSPECIFIED DISORDER OF SKIN AND SUBCUTANEOUS TISSUE 11/30/2012 FRANCISCO MONIQUE JERNIGANBRIT PalmCY N 790.21 IMPAIRED FASTING GLUCOSE 11/30/2012 RUPINDER HAM APRN E 272.2 MIXED HYPERLIPIDEMIA 11/30/2012 RUPINDER HAM APRN E 709.9 UNSPECIFIED DISORDER OF SKIN AND SUBCUTANEOUS TISSUE 11/30/2012 RUPINDER HAM APRN E 790.21 IMPAIRED FASTING GLUCOSE 05/03/2013 NOLAN NEILTERA BAUM APRN N 079.99 UNSPECIFIED VIRAL INFECTION 05/03/2013 FRANCISCO MONIQUE JERNIGANTERA Palm N 461.8 OTHER ACUTE SINUSITIS 05/03/2013 RUPINDER HAM APRN E 079.99 UNSPECIFIED VIRAL INFECTION 05/03/2013 RUPINDER HAM APRN E 461.8 OTHER ACUTE SINUSITIS 05/06/2013 RUPINDER HAM APRN E 466.0 ACUTE BRONCHITIS 09/18/2014 Ot 397.0 09/18/2014 Ot 424.0 09/18/2014 Ot 729.5 09/18/2014 Ot 786.50 09/18/2014 Ot 786.50 09/18/2014 Ot V45.01 09/18/2014 Ot V58.69 09/18/2014 Ot 611.72 09/18/2014 JENIFER CHILD Ot V76.12 10/02/2014 Ot 397.0 10/02/2014 Ot 424.0 10/02/2014 Ot 729.5 10/02/2014 Ot 786.50 10/02/2014 Ot 786.50 10/02/2014 Ot V45.01 10/02/2014 Ot V58.69 10/02/2014 Ot 611.72 10/02/2014 JENIFER CHILD SPEECH LANGUAGE PATHOLOGIST TRAVEL Ot V76.12 10/04/2014 Ot 397.0 10/04/2014 Ot 424.0 10/04/2014 Ot 729.5 10/04/2014 Ot 786.50 10/04/2014 Ot 786.50 10/04/2014 Ot V45.01 10/04/2014 Ot V58.69 10/04/2014 Ot 611.72 10/04/2014 JENIFER CHILD SPEECH LANGUAGE PATHOLOGIST TRAVEL Ot V76.12 10/04/2014 MARIALUISA LYLES FACC, ALI FACP CCDS Ot 250.00 10/04/2014 MARIALUISA LYLES FACC, ALI FACP CCDS Ot 272.4 10/04/2014 MARIALUISA LYLES FACC, ALI FACP CCDS Ot 278.00 10/04/2014 MRAIALUISA LYLES FACC, ALI FACP CCDS Ot 305.1 10/04/2014 MARIALUISA LYLES FACC, ALI FACP CCDS Ot 401.9 10/04/2014 MARIALUISA LYLES FACC, ALI FACP CCDS Ot 443.9 10/04/2014 MARIALUISA LYLES FACC, ALI FACP CCDS Ot 786.09 10/15/2014 MARIALUISA LYLES FACC, ALI FACP CCDS Ot 780.2 10/15/2014 MARIALUISA LYLES FACC, ALI FACP CCDS Ot 785.1 10/19/2014 MARIALUISA LYLES FACC, ALI FACP CCDS Ot 250.00 10/19/2014 MARIALUISA LYLES FACC, ALI FACP CCDS Ot 272.4 10/19/2014 MARIALUISA LYLES FACC, ALI FACP CCDS Ot 278.00 10/19/2014 MARIALUISA LYLES FACC, ALI FACP CCDS Ot 305.1 10/19/2014 MARIALUISA LYLES FACC, ALI FACP CCDS Ot 401.9 10/19/2014 MARIALUISA LYLES FACC, ALI FACP CCDS Ot 443.9 10/19/2014 MARIALUISA LYLES FACC, ALI FACP CCDS Ot 786.09 07/20/2017 JENIFER CHILD SPEECH LANGUAGE PATHOLOGIST TRAVEL Ot V76.12 OT SCREEN MAMMO-MALIGN NEOPLASM OF BONNY 07/20/2017 MARIALUISA LYLES FACC, ALI FACP CCDS Ot 250.00 DIAB TWAN WO COMPL, TYPE II OR UNSPEC TY 07/20/2017 MARIALUISA KONGC, ALI FACP CCDS Ot 272.4 HYPERLIPIDEMIA NEC/NOS 07/20/2017 MARIALUISA LYLES FACC, ALI FACP CCDS Ot 278.00 OBESITY, NOS 07/20/2017 MARIALUISA LYLES FACC, ALI FACP CCDS Ot 305.1 TOBACCO USE DISORDER 07/20/2017 MARIALUISA LYLES FACC, ALI FACP CCDS Ot 401.9 HYPERTENSION NOS 07/20/2017 MARIALUISA LYLES FACC, ALI FACP CCDS Ot 443.9 PERIPH VASCULAR DIS NOS 07/20/2017 MARIALUISA LYLES FACC, ALI FACP CCDS Ot 786.09 RESPIRATORY ABNORM NEC 07/20/2017 MARIALUISA LYLES FACC, ALI FACP CCDS Ot 780.2 SYNCOPE AND COLLAPSE 07/20/2017 MARIALUISA LYLES FACC, ALI FACP CCDS Ot 785.1 PALPITATIONS 07/21/2017 APARNA ISBELL SPEECH LANGUAGE PATHOLOGIST TRAVEL Ot R07.9 CHEST PAIN, UNSPECIFIED 07/29/2017 JENIFER CHILD SPEECH LANGUAGE PATHOLOGIST TRAVEL Ot V76.12 OTH SCREEN MAMMO-MALIGN NEOPLASM OF BONNY 07/29/2017 MARIALUISA KONGC, ALI FACP CCDS Ot 250.00 DIAB TWAN WO COMPL, TYPE II OR UNSPEC TY 07/29/2017 MARIALUISA KONGC, ALI FACP CCDS Ot 272.4 HYPERLIPIDEMIA NEC/NOS 07/29/2017 MARIALUISA KONGC, ALI FACP CCDS Ot 278.00 OBESITY, NOS 07/29/2017 MARIALUISA LYLES FACC, ALI FACP CCDS Ot 305.1 TOBACCO USE DISORDER 07/29/2017 MARIALUISA KONGC, ALI FACP CCDS Ot 401.9 HYPERTENSION NOS 07/29/2017 MARIALUISA KONGC, ALI FACP CCDS Ot 443.9 PERIPH VASCULAR DIS NOS 07/29/2017 MARIALUISA LYLES FACC, ALI FACP CCDS Ot 786.09 RESPIRATORY ABNORM NEC 07/29/2017 MARIALUISA LYLES FACC, ALI FACP CCDS Ot 780.2 SYNCOPE AND COLLAPSE 07/29/2017 MARIALUISA LYLES FACC, ALI FACP CCDS Ot 785.1 PALPITATIONS 07/29/2017 BAIMA, APARNA L SPEECH LANGUAGE PATHOLOGIST TRAVEL Ot R07.9 CHEST PAIN, UNSPECIFIED 08/03/2017 JENIFER CIHLD SPEECH LANGUAGE PATHOLOGIST TRAVEL Ot V76.12 OTH SCREEN MAMMO-MALIGN NEOPLASM OF BONNY 08/03/2017 MARIALUISA LYLES FACC, ALI FACP CCDS Ot 250.00 DIAB TWAN WO COMPL, TYPE II OR UNSPEC TY 08/03/2017 MARIALUISA LYLES FACC, ALI FACP CCDS Ot 272.4 HYPERLIPIDEMIA NEC/NOS 08/03/2017 MARIALUISA LYLES FACC, ALI FACP CCDS Ot 278.00 OBESITY, NOS 08/03/2017 MARIALUISA LYLES FACC, ALI FACP CCDS Ot 305.1 TOBACCO USE DISORDER 08/03/2017 MARIALUISA LYLES FACC, ALI FACP CCDS Ot 401.9 HYPERTENSION NOS 08/03/2017 MARIALUISA KONGC, ALI FACP CCDS Ot 443.9 PERIPH VASCULAR DIS NOS 08/03/2017 MARIALUISA LYLES FACC, ALI FACP CCDS Ot 786.09 RESPIRATORY ABNORM NEC 08/03/2017 MARIALUISA LYLES FACC, ALI FACP CCDS Ot 780.2 SYNCOPE AND COLLAPSE 08/03/2017 MARIALUISA LYLES FACC, ALI FACP CCDS Ot 785.1 PALPITATIONS 08/03/2017 APARNA ISBELL SPEECH LANGUAGE PATHOLOGIST TRAVEL Ot R07.9 CHEST PAIN, UNSPECIFIED 08/03/2017 MARIALUISA LYLES FACC, ALI FACP CCDS Ot E11.9 TYPE 2 DIABETES MELLITUS WITHOUT COMPLIC 08/03/2017 MARIALUISA LYLES FACC, ALI FACP CCDS Ot E66.9 OBESITY, UNSPECIFIED 08/03/2017 MARIALUISA LYLES FACC, ALI FACP CCDS Ot E78.5 HYPERLIPIDEMIA, UNSPECIFIED 08/03/2017 MARIALUISA LYLES FACC, ALI FACP CCDS Ot F17.210 NICOTINE DEPENDENCE, CIGARETTES, UNCOMPL 08/03/2017 MARIALUISA LYLES FACC, ALI FACP CCDS Ot I10 ESSENTIAL (PRIMARY) HYPERTENSION 08/03/2017 MARIALUISA LYLES FACC, ALI FACP CCDS Ot Z45.010 ENCNTR FOR CHECKING AND TEST OF CARD PAC 08/03/2017 MARIALUISA LYLES FACC, ALI FACP CCDS Ot Z68.36 BODY MASS INDEX (BMI) 36.0-36.9, ADULT 08/03/2017 MARIALUISA LYLES FACC, ALI FACP CCDS Ot 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 08/03/2017 MARIALUISA LYLES FACC, ALI FACP CCDS Ot Z79.899 OTHER [facility] (CURRENT) DRUG THERAPY 08/06/2017 MARIALUISA LYLES FACC, CORNELL FACP CCDS Ot E11.9 TYPE 2 DIABETES MELLITUS WITHOUT COMPLIC 08/06/2017 MARIALUISA LYLES FACC, ALI FACP CCDS Ot E66.9 OBESITY, UNSPECIFIED 08/06/2017 MARIALUISA LYLES FACC, ALI FACP CCDS Ot E78.5 HYPERLIPIDEMIA, UNSPECIFIED 08/06/2017 MARIALUISA LYLES FACC, ALI FACP CCDS Ot F17.210 NICOTINE DEPENDENCE, CIGARETTES, UNCOMPL 08/06/2017 MARIALUISA LYLES FACC, ALI FACP CCDS Ot I10 ESSENTIAL (PRIMARY) HYPERTENSION 08/06/2017 MARIALUISA LYLES FACC, CORNELL FACP CCDS Ot Z45.010 ENCNTR FOR CHECKING AND TEST OF CARD PAC 08/06/2017 CORNELL ELAM MD, FACC FACP CCDS Ot Z68.36 BODY MASS INDEX (BMI) 36.0-36.9, ADULT 08/06/2017 CORNELL ELAM MD, FACC FACP CCDS Ot 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 08/06/2017 MARIALUISA LYLES FACC, ALI FACP CCDS Ot Z79.899 OTHER [facility] (CURRENT) DRUG THERAPY 08/11/2017 APARNA ISBELL SPEECH LANGUAGE PATHOLOGIST TRAVEL Ot R07.9 CHEST PAIN, UNSPECIFIED 08/23/2017 JENIFER CHILD SPEECH LANGUAGE PATHOLOGIST TRAVEL Ot V76.12 OTH SCREEN MAMMO-MALIGN NEOPLASM OF BONNY 08/23/2017 MARIALUISA LYLES FACC, CORNELL FACP CCDS Ot 250.00 DIAB WTAN WO COMPL, TYPE II OR UNSPEC TY 08/23/2017 MARIALUISA LYLES FACC, ALI FACP CCDS Ot 272.4 HYPERLIPIDEMIA NEC/NOS 08/23/2017 MARIALUISA LYLES FACC, ALI FACP CCDS Ot 278.00 OBESITY, NOS 08/23/2017 MARIALUISA LYLES FACC, ALI FACP CCDS Ot 305.1 TOBACCO USE DISORDER 08/23/2017 MARIALUISA LYLES FACC, ALI FACP CCDS Ot 401.9 HYPERTENSION NOS 08/23/2017 MARIALUISA LYLES FACC, ALI FACP CCDS Ot 443.9 PERIPH VASCULAR DIS NOS 08/23/2017 MARIALUISA LYLES FACC ALI FACP CCDS Ot 786.09 RESPIRATORY ABNORM NEC 08/23/2017 MARIALUISA MD FACC, ALI FACP CCDS Ot 780.2 SYNCOPE AND COLLAPSE 08/23/2017 MARIALUISA LYLES FACC, ALI FACP CCDS Ot 785.1 PALPITATIONS 08/23/2017 NELIDAAPARNA GEORGES Lonnie SPEECH LANGUAGE PATHOLOGIST TRAVEL Ot R07.9 CHEST PAIN, UNSPECIFIED 08/24/2017 JENIFER CHILD SPEECH LANGUAGE PATHOLOGIST TRAVEL Ot V76.12 OTH SCREEN MAMMO-MALIGN NEOPLASM OF BONNY 08/24/2017 MARIALUISA LYLES FACC, ALI FACP CCDS Ot 250.00 DIAB TWAN WO COMPL, TYPE II OR UNSPEC TY 08/24/2017 MARIALUISA LYLES FACC, ALI FACP CCDS Ot 272.4 HYPERLIPIDEMIA NEC/NOS 08/24/2017 MARIALUISA MD FACC, ALI FACP CCDS Ot 278.00 OBESITY, NOS 08/24/2017 MARIALUISA LYLES FACC, ALI FACP CCDS Ot 305.1 TOBACCO USE DISORDER 08/24/2017 MARIALUISA LYLES FACC, ALI FACP CCDS Ot 401.9 HYPERTENSION NOS 08/24/2017 MARIALUISA LYLES FACC, ALI FACP CCDS Ot 443.9 PERIPH VASCULAR DIS NOS 08/24/2017 MARIALUISA LYLES FACC, ALI FACP CCDS Ot 786.09 RESPIRATORY ABNORM NEC 08/24/2017 MARIALUISA LYLES FACC, ALI FACP CCDS Ot 780.2 SYNCOPE AND COLLAPSE 08/24/2017 MARIALUISA LYLES FACC, ALI FACP CCDS Ot 785.1 PALPITATIONS 08/24/2017 AKILAHAPARNA Lonnie SPEECH LANGUAGE PATHOLOGIST TRAVEL Ot R07.9 CHEST PAIN, UNSPECIFIED 08/24/2017 JENIFER CHILD SPEECH LANGUAGE PATHOLOGIST TRAVEL Ot V76.12 OTH SCREEN MAMMO-MALIGN NEOPLASM OF BONNY 08/24/2017 MARIALUISA LYLES FACC, ALI FACP CCDS Ot 250.00 DIAB TWAN WO COMPL, TYPE II OR UNSPEC TY 08/24/2017 MARIALUISA LYLES FACC, ALI FACP CCDS Ot 272.4 HYPERLIPIDEMIA NEC/NOS 08/24/2017 MARIALUISA LYLES FACC, ALI FACP CCDS Ot 278.00 OBESITY, NOS 08/24/2017 MARIALUISA LYLES FACC, ALI FACP CCDS Ot 305.1 TOBACCO USE DISORDER 08/24/2017 MARIALUISA LYLES FACC, ALI FACP CCDS Ot 401.9 HYPERTENSION NOS 08/24/2017 MARIALUISA LYLES FACC, ALI FACP CCDS Ot 443.9 PERIPH VASCULAR DIS NOS 08/24/2017 MARIALUISA LYLES FACC, ALI FACP CCDS Ot 786.09 RESPIRATORY ABNORM NEC 08/24/2017 MARIALUISA LYLES FACC, ALI FACP CCDS Ot 780.2 SYNCOPE AND COLLAPSE 08/24/2017 MARIALUISA KONG, ALI FACP CCDS Ot 785.1 PALPITATIONS 08/24/2017 APARNA ISBELL SPEECH LANGUAGE PATHOLOGIST TRAVEL Ot R07.9 CHEST PAIN, UNSPECIFIED 08/24/2017 JENIFER CHILD SPEECH LANGUAGE PATHOLOGIST TRAVEL Ot V76.12 OTH SCREEN MAMMO-MALIGN NEOPLASM OF BONNY 08/24/2017 MARIALUISA KONGC, ALI FACP CCDS Ot 250.00 DIAB TWAN WO COMPL, TYPE II OR UNSPEC TY 08/24/2017 MARIALUISA KONGC, ALI FACP CCDS Ot 272.4 HYPERLIPIDEMIA NEC/NOS 08/24/2017 MARIALUISA LYLES FACC, ALI FACP CCDS Ot 278.00 OBESITY, NOS 08/24/2017 MARIALUISA KONGC, ALI FACP CCDS Ot 305.1 TOBACCO USE DISORDER 08/24/2017 MARIALUISA LYLES FACC, ALI FACP CCDS Ot 401.9 HYPERTENSION NOS 08/24/2017 MARIALUISA KONG, ALI FACP CCDS Ot 443.9 PERIPH VASCULAR DIS NOS 08/24/2017 MARIALUISA LYLES FACC, ALI FACP CCDS Ot 786.09 RESPIRATORY ABNORM NEC 08/24/2017 MARIALUISA LYLES FACC, ALI FACP CCDS Ot 780.2 SYNCOPE AND COLLAPSE 08/24/2017 MARIALUISA KONG, ALI FACP CCDS Ot 785.1 PALPITATIONS 08/24/2017 APARNA ISBELL SPEECH LANGUAGE PATHOLOGIST TRAVEL Ot R07.9 CHEST PAIN, UNSPECIFIED 08/25/2017 APARNA ISBELL SPEECH LANGUAGE PATHOLOGIST TRAVEL Ot R07.9 CHEST PAIN, UNSPECIFIED 09/02/2017 CARLITOS KEYS SPEECH LANGUAGE PATHOLOGIST TRAVEL Ot J44.9 CHRONIC OBSTRUCTIVE PULMONARY DISEASE, U 09/02/2017 CARLITOS KEYS SPEECH LANGUAGE PATHOLOGIST TRAVEL Ot M54.41 LUMBAGO WITH SCIATICA, RIGHT SIDE 09/02/2017 CARLITOS KEYS SPEECH LANGUAGE PATHOLOGIST TRAVEL Ot Z72.0 TOBACCO USE 09/08/2017 APARNA ISBELL SPEECH LANGUAGE PATHOLOGIST TRAVEL Ot R07.9 CHEST PAIN, UNSPECIFIED Procedures Code [place] [address] ROUTINE VENIPUNCTURE 11/22/2012 83307 CMP 11/22/2012 00576 LIPID PANEL 11/22/2012 67882 CPK 11/22/2012 60997 TSH 11/22/2012 CARDIOLOG CARDIOLOGY, 11/22/2012 36365 GGT 11/30/2012 52529 MAMMOGRAM, SCREENING 11/30/2012 46323 ROUTINE VENIPUNCTURE 02/28/2013 4602661 GFR CALC (RESULT ONLY) 02/28/2013 73937 CMP 02/28/2013 33543 LIPID PANEL 02/28/2013 88849 THERAPUTIC INJ SQ/IM 05/03/2013 J2930 SOLUMEDROL INJ 05/03/2013 Results Test Result Range THYROID ANALYZER - 03/11/17 16:12 TSH 1.57 mIU/L NRG Automated blood complete blood count (hemogram) panel - 08/03/17 07:14 Blood leukocytes automated count (number/volume) 8.4 10*3/uL 4.3-11.0 Blood erythrocytes automated count (number/volume) 5.93 10*6/uL 4.35-5.85 Venous blood hemoglobin measurement (mass/volume) 17.8 g/dL 11.5-16.0 Blood hematocrit (volume fraction) 50 % 35-52 Automated erythrocyte mean corpuscular volume 85 [foz_us] 80-99 Automated erythrocyte mean corpuscular hemoglobin (mass per erythrocyte) 30 pg 25-34 Automated erythrocyte mean corpuscular hemoglobin concentration measurement ( mass/volume) 36 g/dL 32-36 Automated erythrocyte distribution width ratio 14.4 % 10.0-14.5 Automated blood platelet count (count/volume) 160 10*3/uL 130-400 Automated blood platelet mean volume measurement 12.2 [foz_us] 7.4-10.4 Comprehensive metabolic panel - 08/03/17 07:14 Serum or plasma sodium measurement (moles/volume) 141 mmol/L 135-145 Serum or plasma potassium measurement (moles/volume) 4.3 mmol/L 3.6-5.0 Serum or plasma chloride measurement (moles/volume) 109 mmol/L 98-107 Carbon dioxide 21 mmol/L 21-32 Serum or plasma anion gap determination (moles/volume) 11 mmol/L 5-14 Serum or plasma urea nitrogen measurement (mass/volume) 11 mg/dL 7-18 Serum or plasma creatinine measurement (mass/volume) 0.75 mg/dL 0.60-1.30 Serum or plasma urea nitrogen/creatinine mass ratio 15 NRG Serum or plasma creatinine measurement with calculation of estimated glomerular filtration rate > NRG Serum or plasma glucose measurement (mass/volume) 96 mg/dL 70-105 Serum or plasma calcium measurement (mass/volume) 9.2 mg/dL 8.5-10.1 Serum or plasma total bilirubin measurement (mass/volume) 0.5 mg/dL 0.1-1.0 Serum or plasma alkaline phosphatase measurement (enzymatic activity/volume) 96 U/L 40-136 Serum or plasma aspartate aminotransferase measurement (enzymatic activity/ volume) 21 U/L 5-34 Serum or plasma alanine aminotransferase measurement (enzymatic activity/volume ) 27 U/L 0-55 Serum or plasma protein measurement (mass/volume) 7.2 g/dL 6.4-8.2 Serum or plasma albumin measurement (mass/volume) 4.1 g/dL 3.2-4.5 Lipid 1996 panel - 08/03/17 07:14 Serum or plasma triglyceride measurement (mass/volume) 123 mg/dL <150 Serum or plasma cholesterol measurement (mass/volume) 154 mg/dL < 200 Serum or plasma cholesterol in HDL measurement (mass/volume) 29 mg/ dL 40-60 Cholesterol in LDL [mass/volume] in serum or plasma by direct assay 114 mg/dL 1-129 Serum or plasma cholesterol in VLDL measurement (mass/volume) 25 mg/ dL 5-40 PT panel in platelet poor plasma by coagulation assay - 08/03/17 07:14 Prothrombin time (PT) in platelet poor plasma by coagulation assay 14.2 s 12.2-14.7 INR in platelet poor plasma or blood by coagulation assay 1.1 0.8-1.4 Activated partial thromboplastin time (aPTT) in platelet poor plasma bycoagulation assay - 08/03/17 07:14 Activated partial thromboplastin time (aPTT) in platelet poor plasma bycoagulation assay 33 s 24-35 Methicillin resistant Staphylococcus aureus (MRSA) screening culture - 07:14 Methicillin resistant Staphylococcus aureus (MRSA) screening culture NEG NRG CULTURE, URINE - 10/15/17 17:54 CULTURE, URINE, ROUTINE SEE NOTE NRG Encounters ACCT No. Visit Date/Time Discharge Status Pt. Type Provider Facility Loc./Unit Complaint [id number] 05/06/2013 13:46:00 05/06/2013 23:59:59 CLS Outpatient RUPINDER HAM APRN [id number] 05/03/2013 08:05:00 05/03/2013 23:59:59 CLS Outpatient TERA SEVERINO APRN [id number] 02/28/2013 11:22:00 02/28/2013 23:59:59 CLS Outpatient SILVESTRE TYLER DO [id number] 11/30/2012 10:23:00 11/30/2012 23:59:59 CLS Outpatient SILVESTRE TYLER DO [id number] 11/22/2012 09:06:00 11/22/2012 23:59:59 CLS Outpatient SILVESTRE TYLER DO [id number] 09/01/2017 14:50:00 09/01/2017 23:59:59 CLS Outpatient CARLITOS KEYS L SPEECH LANGUAGE PATHOLOGIST TRAVEL [facility] RT CHRONIC OBSTRUCTIVE PULMONARY DISEASE,LUMBAGO WITH [id number] 08/24/2017 11:21:00 08/24/2017 23:59:59 CLS Outpatient BAIMA, APARNA L SPEECH LANGUAGE PATHOLOGIST TRAVEL [facility] CARD CHEST PAIN [id number] 08/03/2017 06:48:00 08/03/2017 13:42:00 DIS Outpatient CORNELL ELAM MD, FACC, FACP CCDS [facility] CATH PACEMAKER AT EOL,SYMPTOMATIC BRADYCARDIA [id number] 07/20/2017 09:51:00 07/20/2017 23:59:59 CLS Outpatient BAIMA, APARNA L SPEECH LANGUAGE PATHOLOGIST TRAVEL [facility] CARD CHEST PAIN [id number] 07/02/2017 14:57:00 07/02/2017 23:59:59 CLS Preadmit BAIMA, APARNA L SPEECH LANGUAGE PATHOLOGIST TRAVEL [facility] RAD CHEST PAIN [id number] 07/02/2017 14:55:00 07/02/2017 23:59:59 CLS Preadmit BAIMA, APARNA L SPEECH LANGUAGE PATHOLOGIST TRAVEL [facility] CARD CHEST PAIN [id number] 10/04/2014 07:52:00 10/04/2014 23:59:59 CLS Outpatient CORNELL ELAM MD, FACC, FACP CCDS [facility] CARD DYSPNEA,PAD, HTN [id number] 10/02/2014 08:54:00 10/02/2014 23:59:59 CLS Outpatient CORNELL ELAM MD, FACC, FACP CCDS [facility] CARD PAD,HTN, DYSPNEA [id number] 12/15/2012 09:07:00 12/15/2012 23:59:59 CLS Outpatient JENIFER CHILD [facility] RAD SCREENING [id number] 10/04/2014 08:12:00 Document Registration [id number] 06/01/2011 13:57:00 Document Registration [id number] 08/08/2010 10:42:00 Document Registration [id number] 08/06/2010 07:46:00 Document Registration [id number] 08/24/2017 18:20:00 08/24/2017 23:59:59 CLS Out[id number] 10/15/2017 16:40:00 Document Registration [id number] 03/11/2017 15:00:00 Document Registration
--- OUTSIDE RECORDS SUMMARY | 2018-03-08 10:09 | XMS REPORT ---
Author Author ABDULAZIZ ROD [facility] eClinicalWorks Address Unknown Phone Unavailable Care Team Providers Care Hub Cutter Apprentice Name Role Phone ABDULAZIZ ROD CP Unavailable Allergies, Adverse Reactions, Alerts Substance Reaction Event Type Morphine Sulfate viloent behavior Drug Allergy Problems Problem Type Condition Code Onset Dates Condition Status Assessment Chronic obstructive pulmonary disease, unspecified COPD type J44.9 Active Problem Impaired fasting glucose 790.21 Active Problem Mixed hyperlipidemia 272.2 Active Problem Hyperlipidemia, unspecified hyperlipidemia E78.5 Active Problem Coronary artery disease involving [place] coronary artery of [place] heart without angina pectoris I25.10 Active Problem Chronic obstructive pulmonary disease, unspecified COPD type J44.9 Active Problem 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 Active Problem Coronary atherosclerosis of unspecified type of vessel, [place] or graft 414.00 Active Problem Anhedonia R45.84 Active Problem Lump or mass in breast 611.72 Active Assessment Anhedonia R45.84 Active Assessment Coronary artery disease involving [place] coronary artery of [place] heart without angina pectoris I25.10 Active Assessment Hyperlipidemia, unspecified hyperlipidemia E78.5 Active Assessment Encounter for immunization Z23 Active Medications Medication Code System Code Instructions Start Date End Date Status Dosage Simvastatin [facility] [address]-62 20 MG Orally Once a day July 19, 2014 1 tablet in the evening Aspirin [facility] [place] [address]-13 81 MG Orally Once a day not defined Spiriva HandiHaler [facility] [place] [address]-11 18 MCG Inhalation Once a day June 28, 2014 1 capsule Advair Diskus [facility] [place] [address]-83 500-50 MCG/DOSE Inhalation Twice a day June 28, 2014 1 puff Procedures Procedure Coding System Code Date Office Visit, Est Pt., Level 4 CPT-4 11985 Nov 29, 2014 FLUARIX QUAD (3 & UP)--2014 CPT-4 07172 Nov 29, 2014 MEASURE BLOOD OXYGEN LEVEL CPT-4 26985 Nov 29, 2014 SINGLE IMMUNIZATION ADMIN CPT-4 58927 Nov 29, 2014 PCV 13 CPT-4 56580 Nov 29, 2014 IMMUNIZATION ADMIN, EACH ADD (please include units) CPT-4 86243 Nov 29, 2014 Vital Signs Date/Time: Nov 29, 2014 Temperature 98.5 F Weight 205.1 lbs Height 60 in Oximetry 97 % Blood Pressure Diastolic 58 mmHg Blood Pressure Systolic 126 mmHg Cardiac Monitoring Heart Rate 68 bpm BMI 40.05 Index Results No Known Results Immunizations Vaccine Administration Date FLUARIX QUAD (3 & UP)-GSK-2014Nov 29, 2014 PCV 13 Nov 29, 2014 Summary Purpose eClinicalWorks Submission
[2018-03-08] MEDS ORDERED: NS IV 1000 ML 1,000 ML IV SCH (10:15)
[2018-03-08 10:36] LABS: HEMOGLOBIN 17.6 G/DL (11.5-16.0); MEAN PLATELET VOLUME 11.3 FL (7.4-10.4); RED BLOOD COUNT 5.83 10^6/uL (4.35-5.85); WHITE BLOOD COUNT 6.7 10^3/uL (4.3-11.0)
[2018-03-08 10:45] LABS: PROTHROMBIN TIME PATIENT 13.4 SEC (12.2-14.7)
[2018-03-08] MEDS ORDERED: BUSP10TA95 PO (10:48)
[2018-03-08] MEDS ORDERED: FLUT1DIS26 IH (10:48)
[2018-03-08] MEDS ORDERED: FLUO20CA42 PO (10:48)
[2018-03-08] MEDS ORDERED: HYDR-3812 PO (10:48)
[2018-03-08 10:52] LABS: ALANINE AMINOTRANSFERASE 15 U/L (0-55); ALBUMIN 4.3 GM/DL (3.2-4.5); ALKALINE PHOSPHATASE 91 U/L (40-136); BILIRUBIN,TOTAL 0.5 MG/DL (0.1-1.0); BUN/CREATININE RATIO 19; CALCIUM 9.8 MG/DL (8.5-10.1); CARBON DIOXIDE 25 MMOL/L (21-32); CHLORIDE 105 MMOL/L (98-107); CHOLESTEROL 176 MG/DL (< 200); CREATININE SERUM 0.78 MG/DL (0.60-1.30); GFR ESTIMATED > 60; GLUCOSE 85 MG/DL (70-105); HDL CHOLESTEROL 36 MG/DL (40-60); POTASSIUM 4.5 MMOL/L (3.6-5.0); SODIUM 140 MMOL/L (135-145); TRIGLYCERIDES 142 MG/DL (<150); VLDL CHOLESTEROL 28 MG/DL (5-40)
[2018-03-08] MEDS ORDERED: fentaNYL INJECTION 100 MCG/2 ML AMP ONE (11:47)
[2018-03-08] MEDS ORDERED: MIDAZOLAM 5 MG/5 ML (VERSED) VIAL ONE (11:47)
--- NOTE | 2018-03-08 12:06 | Cardiac Procedure Note-CS/ASA ---
Pre-Procedure Note Pre-Op Procedure Note H&P Reviewed The H&P was reviewed, patient examined and no changes noted. Date H&P Reviewed: Mar 08, 2018 Time H&P Reviewed: 12:06 Conscious Sedation Pre-Proced Time 12:06 ASA Score 3 For ASA 3 and 4: Consider anesthesia and medical clearance. Also, for patients with a history of failed moderate sedation consider anesthesia. Airway Lungs Heart ASA score ASA 1: a normal healthy patient ASA 2: a patient with a mild systemic disease (mid diabetes, controlled hypertension, obesity ASA 3: a patient with a severe systemic disease that limits activity (angina , COPD, prior Myocardial infarction) ASA 4: a patient with an incapacitating disease that is a constant threat to life (CHF, renal failure) ASA 5: a moribund patient not expected to survive 24 hrs. (ruptured aneurysm) ASA 6: a declared brain patient whose organs are being harvested. For emergent operations, add the letter E after the classification Mallampati Classification Grade 3 Sedation Plan Analgesia, Amnesia, Plan communicated to team members, Discussed options with patient/fam, Discussed risks with patient/fam The patient is an appropriate candidate to undergo the planned procedure, sedation, and anesthesia. The patient immediately re-assessed prior to indication. CORNELL ELAM MD FACP FAC CCDS Mar 08, 2018 12:06
[2018-03-08] MEDS ORDERED: EPTIFIBATIDE BOLUS 20 ML IV ONE (12:20)
[2018-03-08] MEDS ORDERED: NITRO DRIP 25000 MCG/D5W 0 ML IV ONE (12:20)
[2018-03-08] MEDS ORDERED: HEParin 1000 UNIT/ML (10ML VIAL) FOR BOLUS ONE (12:20)
[2018-03-08] MEDS ORDERED: CLOPIDOGREL 300 MG (PLAVIX) TABLET PO ONE (12:47)
[2018-03-08] MEDS ORDERED: ASPIRIN 81 MG CHEW (CHILDREN'S ASA) ONE (12:47)
[2018-03-08] MEDS ORDERED: RT-ALBUTEROL SULF 2.5 MG/3 ML PRE-MIX VIAL IH PRN (13:15)
[2018-03-08] MEDS ORDERED: NON-FORMULARY MEDICATION 1 EA EA (Hydroxyzine HCl 25 MG) PO PRN (13:15)
[2018-03-08] MEDS ORDERED: PATIENT MAY USE OWN MEDS, ALL PO SCH (13:15)
[2018-03-08] MEDS ORDERED: oxyCODONE/APAP 5/325MG (PERCOCET 5) TABLET PO PRN (13:15)
--- NOTE | 2018-03-08 13:23 | OPERATIVE REPORT ---
DATE OF SERVICE: 03/08/2018 CARDIAC CATHETERIZATION CORONARY INTERVENTION The patient is a 47-year-old lady with multiple coronary artery disease risk factors who has been experiencing symptoms consistent with new onset of angina pectoris. Cardiac catheterization was carried out today after having obtained informed consent. Informed consent was also obtained for ad hoc coronary intervention, if needed. PROCEDURE: She was brought to the cardiac catheterization laboratory in a fasting state. Right groin was prepared and draped in usual sterile fashion. A 1% lidocaine was used for local anesthesia. Modified Seldinger technique used to advance a 5-Monegasque sheath in the right femoral artery. 5-Monegasque JL4 catheter was used for left coronary angiography. A 5-Monegasque JR4 catheter for right coronary angiography. A 5-Monegasque Pigtail catheter was used for left heart catheterization, left ventricular angiography. PERCUTANEOUS INTERVENTION OF THE RIGHT CORONARY ARTERY: Following completion of the diagnostic procedure, we carried out percutaneous intervention to the right coronary artery, which was exhibiting a long proximal to mid vessel lesion, which was up to 90%. We exchanged the sheath over a wire for a 7-Monegasque sheath. We used a 7-Monegasque side hole short tip guide at first but we were not able to engage the artery adequately with that. We removed this guide and used a 6-Monegasque JR4 guide with side holes to engage the right coronary artery. We advanced a BMW wire across the lesion and the tip was placed in the distal vessel. We stented the long lesion with Becky Xience 3.5 x 38 mm stent, which was deployed at 12 atmospheres. Subsequent angiography revealed 0% residual stenosis in the proximal and mid right coronary artery, which had stenosis of up to 90% previously. Flow throughout the vessel was normal. She tolerated the procedure well. Angioplasty equipment was removed. Angiography of the right femoral artery was carried out through the sheath. Mynx was used to achieve hemostasis. LEFT VENTRICULAR ANGIOGRAPHY: Left ventricular angiography was carried out in the right anterior oblique projection. Global left ventricular systolic function normal. No regional wall motion abnormalities are seen. Left ventricular ejection fraction approximately 60%. CONCLUSIONS: 1. Coronary artery disease primarily consisting of a long up to 90% stenosis in the proximal to mid right coronary artery, which was successfully stented with Becky 3.5 x 38 mm stent. The rest of the coronary vessels have mild to moderate plaque. 2. Elevated left ventricular end-diastolic pressure. 3. Normal global left ventricular systolic function with ejection fraction approximately 60%. DISCUSSION AND RECOMMENDATIONS: Risk factor modification has again been discussed. We have advised her to refrain from tobacco use and to be compliant with medications. Dual antiplatelet therapy is being continued. She is being hospitalized for overnight observation. Job ID: [id number] DocumentID: [id number] Dictated Date: 03/08/2018 12:56:47 Shirt Ironer Supervisor Date: 03/08/2018 13:22:56 Dictated By: CORNELL ELAM MD, MA, FACP, FACC,
[2018-03-08] MEDS: NS IV 1000 ML 1,000 ML IV SCH ×2 (15:37→23:51)
[2018-03-08] MEDS ORDERED: hydrOXYzine (VISTARIL) 25 MG CAP PO PRN (16:15)
[2018-03-08] MEDS ORDERED: RT-ALBUTEROL HFA (VENTOLIN) PER PUFF IH PRN (16:15)
[2018-03-08] MEDS ORDERED: hydrOXYzine (ATARAX) 10 MG TAB PO PRN (17:15)
[2018-03-08] MEDS: ADVAIR DISKUS 250/50 IH SCH (20:14)
[2018-03-08] MEDS: busPIRone 10 MG (BUSPAR) TAB PO SCH (20:26)
[2018-03-08] MEDS ORDERED: ATORVASTATIN 10 MG (LIPITOR) TABLET PO SCH (21:00)
[2018-03-08] MEDS ORDERED: NON-FORMULARY MEDICATION 1 EA EA (Buspirone HCl 10 MG) PO SCH (21:00)
[2018-03-09] VITALS: BP 129/49
[2018-03-09 03:59] LABS: HEMOGLOBIN 14.9 G/DL (11.5-16.0); MEAN PLATELET VOLUME 11.7 FL (7.4-10.4); RED BLOOD COUNT 5.11 10^6/uL (4.35-5.85); RED CELL DISTRIBUTION WIDTH 13.6 % (10.0-14.5); WHITE BLOOD COUNT 5.2 10^3/uL (4.3-11.0)
[2018-03-09 04:00] VITALS: BP 138/59
[2018-03-09 04:39] LABS: BUN/CREATININE RATIO 22; CALCIUM 8.7 MG/DL (8.5-10.1); CARBON DIOXIDE 20 MMOL/L (21-32); CHLORIDE 109 MMOL/L (98-107); CREATININE SERUM 0.67 MG/DL (0.60-1.30); GFR ESTIMATED > 60; GLUCOSE 88 MG/DL (70-105); POTASSIUM 4.2 MMOL/L (3.6-5.0); SODIUM 138 MMOL/L (135-145)
--- NOTE | 2018-03-09 08:05 | Progress Note-Cardiology ---
Cardiology SOAP Progress Note Subjective: Sitting up in bed. Denies any c/o CP, dyspnea, palpitations, syncope or near syncope. No c/o right groin discomfort. States she is feeling better than when she came in. Objective: I&O/Vital Signs 03/09/18 03/09/18 03/09/18 03/09/18 00:00 01:00 04:00 07:00 Temp 98.3 97.0 Pulse 63 60 60 68 Resp 18 16 B/P (MAP) 129/49 (75) 138/59 (85) Pulse Ox 97 98 O2 Delivery Room Air Room Air 03/09/18 03/09/18 03/09/18 08:09 08:25 08:57 Pulse 71 Resp 18 B/P (MAP) 125/62 (83) Pulse Ox 93 93 95 O2 Delivery Room Air Room Air Room Air 03/09/18 00:00 Intake Total 300 ml Balance 300 ml Weight (Pounds): 208 Weight (Ounces): 0.0 Weight (Calculated Kilograms): 94.402740 Side: right Groin site without hematoma: Yes Condition: DP/PT pulses palpable, extremity w/d/p Bruising: mild bruising Constitutional: AAO x 3 Respiratory: No accessory muscle use, No respiratory distress; chest expansion is symmetric, chest is bilaterally symmetric, rhonchi (scattered), other ( prolonged expiratory phase ) Cardiovascular: regular rate-rhythm; No JVD; S1 and S2 Gastrointestional: No tender; soft, round, audible bowel sounds Extremities: no lower extremity edema bilateral Neurologic/Psychiatric: grossly intact Skin: No rash, No ulcerations Results/Procedures: Labs Laboratory Tests 03/09/18 03:45: White Blood Count 5.2, Red Blood Count 5.11, Hemoglobin 14.9, Hematocrit 44, Mean Corpuscular Volume 87, Mean Corpuscular Hemoglobin 29, Mean Corpuscular Hemoglobin Concent 34, Red Cell Distribution Width 13.6, Platelet Count 134, Mean Platelet Volume 11.7H, Sodium Level 138, Potassium Level 4.2, Chloride Level 109H, Carbon Dioxide Level 20L, Anion Gap 9, Blood Urea Nitrogen 15, Creatinine 0.67, Estimat Glomerular Filtration Rate > 60, BUN/Creatinine Ratio 22, Glucose Level 88, Calcium Level 8.7 Procedures S/P cardiac cath with successful intervention on 03-08-18. Please refer to cardiac cath report for details. A/P: Assessment: Coronary artery disease. Card cath of 03/08/18 showed a long, up to 90% stenosis in the proximal to mid right coronary artery, which was successfully stented with Becky 3.5 x 38 mm stent. The rest of the coronary vessels have mild to moderate plaque. Elevated left ventricular end-diastolic pressure. Normal global left ventricular systolic function with ejection fraction approximately 60% Symptomatic bradycardia, treated with dual ch Medtronic permanent pacemaker implantation by Dr Sanches at [facility] in [place], [place], in 2006. Device went EOL per interrogation of July 28, 2017, underwent generator change out on August 03, 2017. Device functioning normally per interrogation of Feb 23, 2018 NSVT seen on device interrogation of 02-23-18 Reports h/o aortic stent graft done by Dr. Lopez in 2004 at [facility] H/o PAD. Has a history of leg artery intervention, apparently of the aorto- iliac bifurcation, by Dr Jacome in 2007 or 2008 at [facility] in [place], [place]. ABIs of 10/02/14: 0.95 on R and 1.0 on L Obesity with BMI approx 38 Chronic tobacco use, advised to quit HTN H/o hyperlipidemia, treated with statin therapy and [facility], [facility] No evidence of myocard ischemia or infarction on MPI of July 20, 2017. LVEF was calculated to be 61% Echo of August 24, 2017 showed LVEF 55-60%, trivial MR and TR, PASP 30-35 mmHg H/o bipolar disorder PTSD for which she has previously had psych referral and [facility] Borderline DM II vs IFG Chronic low back pain and joint pains Suspected sleep apnea and hypoxia Minimal bilat carotid plaque seen on u/s of July 2017 Plan: Discussed coronary status with her Advised immediate and complete smoking cessation Continue current medication regimen OK to discharge home today F/U as an out pt in 1-2 weeks Physician Assessment Physician Assessment No cp or palp or syncope or groin discomfort Lungs: fair to good air entry, prolonged exp phase Cor: reg Ext: no c/c/e R groin: mild bruising, peripheral pulses palpable A&R * As documented in our note above that I updated (italics) and as noted below * I went over in detail her cath findings, interventions undertaken, med changes , risk factor mod, outpt f/u, and answered questions in detail * Once again, we advised her to quit smoking immediately and completely APARNA ISBELL Mar 09, 2018 08:05 CORNELL ELAM MD FACP [facility] CCDS Mar 09, 2018 10:52
[2018-03-09] MEDS: busPIRone 10 MG (BUSPAR) TAB PO SCH (08:06)
[2018-03-09 08:09] VITALS: BP 125/62
[2018-03-09] MEDS ORDERED: CLOP75TA28 PO (08:53)
[2018-03-09] MEDS ORDERED: ASPI-999 PO (08:53)
--- NOTE | 2018-03-09 08:54 | Discharge Inst-Cardiology ---
Discharge Inst-Cardiac Discharge Medications New Medications: Aspirin (Aspirin) 81 Mg Tab.chew 81 MG PO DAILY, #30 TAB 5 Refills Clopidogrel Bisulfate (Clopidogrel) 75 Mg Tablet 75 MG PO DAILY, #30 TAB 5 Refills Continued Medications: Albuterol Sulfate (Proventil Hfa) 6.7 Gm Hfa.aer.ad 2 PUFF IH Q4-6HR PRN for SHORTNESS OF BREATH, EACH Atorvastatin Calcium (Atorvastatin Calcium) 10 Mg Tablet 10 MG PO HS, TAB Buspirone HCl (Buspirone HCl) 10 Mg Tablet 10 MG PO TID, TAB Fluoxetine HCl (Prozac) 20 Mg Capsule 20 MG PO DAILY, CAP Fluticasone/Salmeterol (Advair 250-50 Diskus) 1 Each Blst.w.dev 1 EACH IH BID Hydrocodone/Acetaminophen (Hydrocodone-Acetamin 5-325 mg) 1 Each Tablet PO Q8HRS PRN for PAIN-MODERATE, TAB Hydroxyzine HCl (Hydroxyzine HCl) 25 Mg Tablet 25 MG PO BID PRN for ANXIETY, TAB Lisinopril (Lisinopril) 10 Mg Tablet 10 MG PO DAILY, TAB Discontinued Medications: Aspirin (Aspirin EC) 81 Mg Tablet. 81 MG PO DAILY, TAB New, Converted or Re-Newed RX: Transmitted to Pharmacy Patient Instructions Patient Instructions: Please schedule follow up appointment to see Dr. Garza in 1-2 weeks APARNA ISBELL Mar 09, 2018 08:54
[2018-03-09] MEDS: ADVAIR DISKUS 250/50 IH SCH (08:56)
[2018-03-09] MEDS ORDERED: CLOPIDOGREL 75 MG (PLAVIX) TABLET PO SCH (09:00)
[2018-03-09] MEDS ORDERED: FLUoxetine HCL 20 MG (PROzac) CAP PO SCH ×2 (09:00)
[2018-03-09] MEDS ORDERED: lisINopril 10 MG (PRINIVIL) TABLET PO SCH (09:00)
[2018-03-09] MEDS ORDERED: NON-FORMULARY MEDICATION 1 EA EA (Fluoxetine HCl (Prozac) 20 MG) PO SCH (09:00)
[2018-03-09] MEDS ORDERED: ASPIRIN 81 MG CHEW (CHILDREN'S ASA) PO SCH (09:00)
[2018-03-09 11:19] VITALS: BP 125/62
== END 2018-03-09 11:08 | disposition home or self-care (01) ==
LOC: CATH 09:59 → ICU 10:42 → CATH 03-09 11:08
PROVIDERS: ATTEND Internal Medicine Cardiovascular Disease
DX: I25.10 Atherosclerotic heart disease of native coronary artery without angina pectoris (principal); E11.51 Type 2 diabetes mellitus with diabetic peripheral angiopathy without gangrene; E78.5 Hyperlipidemia, unspecified; R00.1 Bradycardia, unspecified; F17.210 Nicotine dependence, cigarettes, uncomplicated; Z95.0 Presence of cardiac pacemaker; E66.9 Obesity, unspecified; I10 Essential (primary) hypertension; Z68.38 Body mass index [BMI] 38.0-38.9, adult; F31.9 Bipolar disorder, unspecified; M54.5 Low back pain; Z79.899 Other long term (current) drug therapy
CPT/HCPCS: 36415; 80048; 80053; 80061; 85027; 85610; 85730; 87081; 93005; 93458; 94640

== ENCOUNTER → 2018-03-15 | Outpatient (CLI) | payer MEDICAID ==
[~2018-03-15] MED LIST changes: +ASPI-999 PO; +BUSP10TA95 PO; +CLOP75TA28 PO; +FLUO20CA42 PO; +FLUT1DIS26 IH; +HYDR-3812 PO
[2018-03-15 11:07] LABS: BUN/CREATININE RATIO 19; CREATININE SERUM 0.74 MG/DL (0.60-1.30); GFR ESTIMATED > 60
== END ==
LOC: LAB 10:17
PROVIDERS: ATTEND Nurse Practitioner Family
DX: J45.909 Unspecified asthma, uncomplicated (principal); R06.09 Other forms of dyspnea; G47.10 Hypersomnia, unspecified; Z72.0 Tobacco use
CPT/HCPCS: 36415; 82565; 84520

== ENCOUNTER → 2018-05-09 | Outpatient (CLI) | payer MEDICAID ==
--- NOTE | 2018-05-09 10:29 | Diagnostic Imaging Report ---
INDICATION: Asthma and tobacco use. TIME OF EXAM: 10:15 AM Comparison is made with prior chest radiograph from 08/03/2017. FINDINGS: Heart size is stable. Cardiac pacemaker is in place. No infiltrate or effusion is detected. There is no pneumothorax. IMPRESSION: No acute cardiopulmonary process is detected. Dictated by: Dictated on workstation # [id number]
== END ==
LOC: RAD 10:07
PROVIDERS: ATTEND Nurse Practitioner Family
DX: J45.909 Unspecified asthma, uncomplicated (principal); Z72.0 Tobacco use; Z95.0 Presence of cardiac pacemaker
CPT/HCPCS: 71046

== ENCOUNTER → 2018-05-18 | Outpatient (CLI) | payer MEDICAID | LOC: SLEEP 19:07 | PROVIDERS: ATTEND Nurse Practitioner Family | DX: G47.10 Hypersomnia, unspecified (principal); J45.909 Unspecified asthma, uncomplicated; R06.09 Other forms of dyspnea; R00.1 Bradycardia, unspecified; Z72.0 Tobacco use | CPT/HCPCS: 95810 ==

== ENCOUNTER → 2018-06-17 | Outpatient (CLI) | payer MEDICAID, OTHER ==
[2018-06-17 13:32] LABS: BUN/CREATININE RATIO 13; CREATININE SERUM 0.75 MG/DL (0.60-1.30); GFR ESTIMATED > 60
== END ==
LOC: LAB 12:54
PROVIDERS: ATTEND Nurse Practitioner Family
DX: J45.909 Unspecified asthma, uncomplicated (principal); R06.89 Other abnormalities of breathing; R06.09 Other forms of dyspnea; G47.10 Hypersomnia, unspecified; R00.1 Bradycardia, unspecified; G47.36 Sleep related hypoventilation in conditions classified elsewhere; J98.4 Other disorders of lung; R91.8 Other nonspecific abnormal finding of lung field; Z72.0 Tobacco use
CPT/HCPCS: 36415; 82565; 84520

== ENCOUNTER → 2018-07-06 | Outpatient (CLI) | payer MEDICAID ==
--- NOTE | 2018-07-06 14:22 | Diagnostic Imaging Report ---
PROCEDURE: CT angiography of the chest with contrast. TECHNIQUE: Multiple contiguous axial images were obtained through the chest after uneventful bolus administration of intravenous contrast. 2D reconstructed CTA MIP acquisitions were also performed. Auto Exposure Controls were utilized during the CT exam to meet ALARA standards for radiation dose reduction. INDICATION: Difficulty breathing. FINDINGS: There are no prior CTA examinations available for comparison. The plain film examination of the chest performed on 05/09/2018 failed to show any sign of an acute cardiopulmonary abnormality. There was a left-sided pacemaker in place. On this study, there is no defect within the pulmonary arteries to indicate a pulmonary embolus. The aorta is not abnormally dilated, and there is no sign of a dissection. The heart size is within normal limits. Coronary artery calcifications are evident. There is a 1.7 x 1.8 cm low-density node in the right hilum. There also appear to be smaller but confluent nodes in the subcarinal region, the left hilum, and in the aorticopulmonary window on the left. A few small pretracheal nodes are also visualized. These nodes are nonspecific and may represent reactive nodes. It would be less likely that they are involved by neoplasm. There are ground-glass densities throughout both lungs, particularly the right lung. These findings are nonspecific and could be secondary to chronic pulmonary disease. The possibility that they are related to mild pneumonia/atelectasis and/or pulmonary edema would be less likely but should be considered. In reviewing the previous chest exam, I do feel that these ground-glass densities were most likely present. There is also a noncalcified 8 mm nodule in the anterior aspect of the right mid lung. There are two other smaller (5 and 3 mm) nodules in this same region. These findings are most likely benign. However, unless there are previous CT chest examinations available to demonstrate that these findings are stable, then a short-term (three-month) followup CT chest exam should be obtained. The sections through the upper abdomen show that the liver is of lower density than usually seen. This does suggest fatty metamorphosis. Both the liver and spleen are prominent but not enlarged. The gallbladder is surgically absent. The bone windows show no evidence for a fracture or for a destructive lesion. There is no obvious breast mass. According to our records, the patient has not had a mammogram since 2011. If the patient has had a recent (within the last year) mammogram elsewhere, then no further imaging would be necessary. Otherwise, mammography should be obtained. The left-sided pacemaker seen previously is again evident. IMPRESSION: 1. There are diffuse ground-glass densities throughout both lungs, and there is nonspecific mediastinal and hilar adenopathy. These findings may well be entirely chronic in nature. The possibility that there is an element of acute pneumonia/atelectasis and/or pulmonary edema should be considered as well. Clinical followup is recommended. 2. The noncalcified nodules in the right mid lung are most likely benign. Recommendations as above. 3. There is no obvious breast mass. Mammography would be recommended for further evaluation if the patient has not had a recent mammogram. Dictated by: Dictated on workstation # [id number]
== END ==
LOC: RAD 12:07
PROVIDERS: ATTEND Nurse Practitioner Family
DX: J98.4 Other disorders of lung (principal); J45.909 Unspecified asthma, uncomplicated; G47.36 Sleep related hypoventilation in conditions classified elsewhere; R00.1 Bradycardia, unspecified; G47.10 Hypersomnia, unspecified; R59.0 Localized enlarged lymph nodes; R91.8 Other nonspecific abnormal finding of lung field; Z95.0 Presence of cardiac pacemaker; Z90.49 Acquired absence of other specified parts of digestive tract; Z72.0 Tobacco use
CPT/HCPCS: 71275

== ENCOUNTER 2018-10-11 07:48 | Day surgery (SDC) | payer MEDICAID ==
[2018-10-11] VITALS (10 sets, daily range): BP systolic 103–144; BP diastolic 52–85
[~2018-10-11] VITALS: Ht 154.9 cm; Wt 89.8 kg
[~2018-10-11 07:48] MED LIST changes: +HEParin (CATH LAB) 2,000 ML IV ONE; +LIDOCAINE 1% INJ 20 ML 20 ML VIAL ONE; +NS IV 1000 ML 1,000 ML ONE
[2018-10-11] MEDS ORDERED: NS IV 1000 ML 1,000 ML IV SCH ×2 (07:55→11:40)
[2018-10-11 08:21] LABS: HEMOGLOBIN 16.6 G/DL (11.5-16.0); MEAN PLATELET VOLUME 12.1 FL (7.4-10.4); RED CELL DISTRIBUTION WIDTH 13.5 % (10.0-14.5); WHITE BLOOD COUNT 8.7 10^3/uL (4.3-11.0)
[2018-10-11] MEDS ORDERED: CLOP75TA69 PO (08:34)
[2018-10-11 08:35] LABS: ALANINE AMINOTRANSFERASE 44 U/L (0-55); ALBUMIN 4.3 GM/DL (3.2-4.5); ALKALINE PHOSPHATASE 123 U/L (40-136); BILIRUBIN,TOTAL 0.5 MG/DL (0.1-1.0); BUN/CREATININE RATIO 20; CALCIUM 9.4 MG/DL (8.5-10.1); CARBON DIOXIDE 24 MMOL/L (21-32); CHLORIDE 105 MMOL/L (98-107); CHOLESTEROL 159 MG/DL (< 200); CREATININE SERUM 0.74 MG/DL (0.60-1.30); GFR ESTIMATED > 60; GLUCOSE 92 MG/DL (70-105); HDL CHOLESTEROL 33 MG/DL (40-60); POTASSIUM 3.7 MMOL/L (3.6-5.0); SODIUM 140 MMOL/L (135-145); TOTAL PROTEIN 7.5 GM/DL (6.4-8.2); TRIGLYCERIDES 179 MG/DL (<150); VLDL CHOLESTEROL 36 MG/DL (5-40)
[2018-10-11] MEDS ORDERED: DESV50TA PO (08:35)
[2018-10-11] MEDS ORDERED: ARIP5TAB12 PO (08:35)
[2018-10-11] MEDS ORDERED: NICO-588 TD (08:35)
--- NOTE | 2018-10-11 08:37 | NUR ---
SPOKE WITH PT (SHE BROUGHT ALL HER BOTTLES WITH HER) AND SHE WAS ABLE TO VERIFY ALL HER MEDS WELL HOW SHE TAKES THEM. OTC MEDS: ASPIRIN 81M DAILY ( SHE GETS THIS FROM [address] [place] [address] PHARMACY A SCRIPT)
[2018-10-11 09:04] LABS: PROTHROMBIN TIME PATIENT 13.6 SEC (12.2-14.7)
[2018-10-11] MEDS ORDERED: MIDAZOLAM 5 MG/5 ML (VERSED) VIAL ONE (10:22)
[2018-10-11] MEDS ORDERED: fentaNYL INJECTION 100 MCG/2 ML AMP ONE (10:22)
[2018-10-11] MEDS ORDERED: diphenhydrAMINE 50 MG/ML INJ (BENADRYL) ONE (10:23)
--- NOTE | 2018-10-11 11:39 | Cardiac Procedure Note-CS/ASA ---
Pre-Procedure Note Pre-Op Procedure Note H&P Reviewed The H&P was reviewed, patient examined and no changes noted. Date H&P Reviewed: Oct 11, 2018 Time H&P Reviewed: 11:00 Conscious Sedation Pre-Proced Time 11:00 ASA Score 3 For ASA 3 and 4: Consider anesthesia and medical clearance. Also, for patients with a history of failed moderate sedation consider anesthesia. Airway Lungs Heart ASA score ASA 1: a normal healthy patient ASA 2: a patient with a mild systemic disease (mid diabetes, controlled hypertension, obesity ASA 3: a patient with a severe systemic disease that limits activity (angina, COPD, prior Myocardial infarction) ASA 4: a patient with an incapacitating disease that is a constant threat to life (CHF, renal failure) ASA 5: a moribund patient not expected to survive 24 hrs. (ruptured aneurysm) ASA 6: a declared brain- patient whose organs are being harvested. For emergent operations, add the letter E after the classification Mallampati Classification Grade 2 Sedation Plan Analgesia, Amnesia, Plan communicated to team members, Discussed options with patient/fam, Discussed risks with patient/fam The patient is an appropriate candidate to undergo the planned procedure, sedation, and anesthesia. The patient immediately re-assessed prior to indication. CORNELL ELAM MD FACP FAC CCDS Oct 11, 2018 11:39
--- NOTE | 2018-10-11 11:42 | Discharge Inst-Cardiology ---
Discharge Inst-Cardiac Problems Reviewed?: Yes Discharge Medications Continued Medications: Albuterol Sulfate (Proventil Hfa) 6.7 Gm Hfa.aer.ad 2 PUFF IH Q4-6HR PRN for SHORTNESS OF BREATH, EACH Aripiprazole (Abilify) 5 Mg Tablet 5 MG PO HS, TAB Aspirin (Aspirin) 81 Mg Tab.chew 81 MG PO DAILY, #30 TAB 5 Refills Atorvastatin Calcium (Atorvastatin Calcium) 10 Mg Tablet 10 MG PO HS, TAB Clopidogrel Bisulfate (Plavix) 75 Mg Tablet 75 MG PO DAILY, TAB Desvenlafaxine Succinate (Pristiq ER) 50 Mg Tab.er.24h 50 MG PO DAILY, TAB Fluticasone/Salmeterol (Advair 250-50 Diskus) 1 Each Blst.w.dev 1 EACH IH BID Hydrocodone/Acetaminophen (Hydrocodone-Acetamin 5-325 mg) 1 Each Tablet PO Q8HRS PRN for PAIN-MODERATE, TAB Lisinopril (Lisinopril) 10 Mg Tablet 10 MG PO DAILY, TAB Nicotine (Nicotine Patch) 1 Each Patch.td24 21 MG TD DAILY, PATCH CORNELL ELAM MD FACP FAC CCDS Oct 11, 2018 11:42
--- NOTE | 2018-10-11 11:43 | Discharge Inst-Post CATH ---
Discharge Inst-CATH/EP Problems Reviewed?: Yes Post Cardiac Cath/EP D/C Inst Follow Up/Plan F/u with Dr Garza in 2 weeks ACTIVITY * Go Home directly and rest. * Limit activity of the leg (or wrist if it was used) for 7 days including aerobics, swimming, jogging, bicycling, etc. * Restrict stair-climbing for 7 days if possible, if not, climb up with your non-cath leg, then bring together on the same step. * Avoid lifting, pushing, pulling or excessive movement of the affected extremity for 7 days. * Customary sexual activity may be resumed after 2 days-use caution not to use a position that strains or causes pain to the affected extremity. * No driving for 24 hours. * NO SMOKING. * Avoid straining for bowel movements for 7 days. * Gentle walking on level ground is allowed. * Returning to work will depend on the type of procedure and the results. Your doctor will discuss this with you. CALL YOUR DOCTOR FOR ANY OF THE FOLLOWING: *If bleeding from the puncture site occurs- Apply gentle pressure to site with clean cloth and call your doctor or EMS. * If a knot or lump forms under the skin, increases in size, or causes pain. * If bruising appears to be worsening or moving further down your leg instead of disappearing. * Temperature above 101 F. CARE OF YOUR GROIN INCISION; * Bruising or purple discoloration of the skin near the puncture site is common. * You may shower only, no bathtub bathing for 5 days. Be careful to avoid slipping as your leg may feel stiff. * If a closure device was used on your femoral artery, please see the attached guide regarding care of the device and your leg. * Leave dressing on FOR 24 hours. CARE OF YOUR WRIST INCISION; * Bruising or purple discoloration of the skin near the puncture site is common. * You may shower. * DO NOT submerge wrist. * Leave dressing on FOR 24 hours. CORNELL GARZA MD FACP [facility] CCDS Oct 11, 2018 11:43
[2018-10-11] MEDS ORDERED: PATIENT MAY USE OWN MEDS, ALL PO SCH (11:45)
--- NOTE | 2018-10-11 12:50 | OPERATIVE REPORT ---
DATE OF SERVICE: PERIPHERAL ANGIOGRAPHY REPORT HISTORY: The patient is a 48-year-old lady, who has symptoms consistent with bilateral leg claudication. She reports a history of percutaneous intervention for bilateral leg discomfort. She has a history of aortic stent graft done by Dr. Lopez in 2004 at [facility]. Because of her symptoms, abdominal aortic and peripheral angiography was carried out today after having obtained an informed consent. DESCRIPTION OF PROCEDURE: She was brought to the cardiac catheterization laboratory in a fasting state. Right groin was prepared and draped in the usual sterile fashion. Lidocaine 1% for local anesthesia. Modified Seldinger technique was used to advance a 5-Azeri sheath into the R femoral artery. We advanced a 5-Azeri pigtail catheter and placed it at the level of L1. Abdominal aortic angiography was performed. The pigtail catheter was then pulled back down to the infrarenal segment of the aorta with the pigtail placed above the proximal end of the aortic stent graft. We performed bilateral leg artery angiography with runoff down to the level of the ankles. We then exchanged the pigtail catheter out over a wire for a straight catheter. We performed a pullback across the abdominal aorta and into the right iliac artery and the catheter was then removed. Angiography of the right femoral artery was carried out through the sheath. Mynx was used to achieve hemostasis. ABDOMINAL AORTIC ANGIOGRAPHY: Abdominal aortic angiography indicated diffuse moderate atherosclerotic disease of the infrarenal abdominal aorta. Both renal arteries are identified and do not exhibit any significant disease. There is a patent stent in the lower abdominal aorta which ends at the aortoiliac bifurcation. A short segment of aorta proximal to the proximal end of the stent graft exhibits approximately 50% stenosis. On pullback, gradient across this is 5 to 10 mmHg. BILATERAL LEG ARTERY ANGIOGRAPHY: Bilateral leg artery angiography indicated patent iliac and femoral and popliteal arteries on both sides. There is a 3-vessel runoff on both sides down to the level of the ankles. The right external iliac artery exhibits 50 to 60% ostial stenosis. Pressure gradient across this ostial stenosis is approximately 5 to 10 mm. Compared to the proximal aorta, the pressure gradient in the mid right iliac is approximately 10 to 15 mmHg. This includes the abdominal aortic stenosis and the ostial iliac artery stenosis. CONCLUSIONS: 1. Patent lower abdominal aortic stent graft, but with approximately 50% abdominal aortic stenosis proximal to the stent graft. 2. 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 DISCUSSION AND RECOMMENDATIONS: Based on results of the study, it appears appropriate to continue a conservative approach. Risk factor modification has been advised and outpatient followup is advised. Job ID: [id number] DocumentID: [id number] Dictated Date: 10/11/2018 11:34:09 [employer] Date: 10/11/2018 12:49:15 Dictated By: CORNELL ELAM MD, MA, FACP, FACC, MTDD
== END 2018-10-11 15:00 | disposition home or self-care (01) ==
LOC: CATH 07:48 → SDC 11:51 → CATH 15:00
PROVIDERS: ATTEND Internal Medicine Cardiovascular Disease
DX: I70.213 Atherosclerosis of native arteries of extremities with intermittent claudication, bilateral legs (principal); I70.0 Atherosclerosis of aorta; J44.9 Chronic obstructive pulmonary disease, unspecified; E11.9 Type 2 diabetes mellitus without complications; I10 Essential (primary) hypertension; E78.5 Hyperlipidemia, unspecified; G47.10 Hypersomnia, unspecified; F17.210 Nicotine dependence, cigarettes, uncomplicated; F43.10 Post-traumatic stress disorder, unspecified; G89.29 Other chronic pain; M54.5 Low back pain; E66.9 Obesity, unspecified; Z68.37 Body mass index [BMI] 37.0-37.9, adult; Z88.5 Allergy status to narcotic agent; Z91.018 Allergy to other foods; Z79.82 Long term (current) use of aspirin; Z79.02 Long term (current) use of antithrombotics/antiplatelets; Z79.899 Other long term (current) drug therapy; Z95.0 Presence of cardiac pacemaker; Z80.49 Family history of malignant neoplasm of other genital organs; Z90.710 Acquired absence of both cervix and uterus; Z90.722 Acquired absence of ovaries, bilateral; Z90.79 Acquired absence of other genital organ(s); Z90.49 Acquired absence of other specified parts of digestive tract
CPT/HCPCS: 36415; 75625; 75716; 80053; 80061; 85027; 85610; 85730; 87081

== ENCOUNTER → 2019-03-28 | Outpatient (CLI) | payer MEDICAID ==
[~2019-03-28] VITALS: Ht 155 cm; Wt 89.0 kg
[~2019-03-28] MED LIST changes: +ARIP5TAB12 PO; +CLOP75TA69 PO; +DESV50TA PO; -HEParin (CATH LAB) 2,000 ML IV ONE; -LIDOCAINE 1% INJ 20 ML 20 ML VIAL ONE; +NICO-588 TD; -NS IV 1000 ML 1,000 ML ONE; +REGADENOSON 0.4 MG/5 ML SYR (LEXISCAN) IV ONE
[2019-03-28] MEDS: CATHETER FLUSH 10 ML SYR IV PRN ×2 (11:32→13:12)
[2019-03-28 13:10] VITALS: BP 154/82
== END ==
LOC: CARD 09:22
PROVIDERS: ATTEND Internal Medicine Cardiovascular Disease
DX: E78.5 Hyperlipidemia, unspecified (principal); I10 Essential (primary) hypertension; J45.909 Unspecified asthma, uncomplicated; Z95.0 Presence of cardiac pacemaker; Z72.0 Tobacco use
CPT/HCPCS: 78452; 93017; 93306

== ENCOUNTER → 2019-06-21 | Outpatient (CLI) | payer MEDICAID ==
[~2019-06-21] MED LIST changes: +ACHD5005 PO; +HOLD METFORMIN - RECEIVED CONTRAST 20 ML VIAL IV SCH; -HYDR-3812 PO; +IOHEXOL 350 MG/ML 100 ML (OMNIPAQUE 350) VIAL IV ONE; +NS 100 ML (IVPB) BAG IV ONE; -REGADENOSON 0.4 MG/5 ML SYR (LEXISCAN) IV ONE
--- NOTE | 2019-06-21 11:08 | Diagnostic Imaging Report ---
PROCEDURE: CT chest with contrast only. TECHNIQUE: Multiple contiguous axial images were obtained through the chest after administration of intravenous contrast. Auto Exposure Controls were utilized during the CT exam to meet ALARA standards for radiation dose reduction. INDICATION: Follow-up abnormal CT from July 06, 2018. FINDINGS: There are unchanged nonspecific groundglass infiltrates. There are no discrete pulmonary nodules or masses. There is no pleural or pericardial fluid. There is no pneumothorax. The previously seen pretracheal and right hilar adenopathy is slightly less prominent. There is no pathologically enlarged adenopathy. There are some coronary artery calcifications. Heart size is normal. Visualized intra-abdominal structures are unremarkable. IMPRESSION: 1. Persistent nonspecific bilateral groundglass infiltrates. 2. The previously seen mediastinal adenopathy is slightly less prominent. 3. No new discrete pulmonary nodules or masses. Dictated by: Dictated on workstation # [id number]
== END ==
LOC: RAD 10:06
PROVIDERS: ATTEND Nurse Practitioner Family
DX: R91.8 Other nonspecific abnormal finding of lung field (principal); R59.0 Localized enlarged lymph nodes; Z72.0 Tobacco use
CPT/HCPCS: 71260

== ENCOUNTER → 2019-12-21 | Outpatient (CLI) | payer MEDICAID ==
[~2019-12-21] MED LIST changes: +ASPI-1238 PO; -ASPI-983 PO
[2019-12-21 12:07] LABS: CREATININE SERUM 0.74 MG/DL (0.60-1.30); GFR ESTIMATED > 60
[2019-12-21 12:08] LABS: BUN/CREATININE RATIO 15
--- NOTE | 2019-12-21 14:36 | Diagnostic Imaging Report ---
PROCEDURE: CT chest with contrast only. TECHNIQUE: Multiple contiguous axial images were obtained through the chest after administration of intravenous contrast. Auto Exposure Controls were utilized during the CT exam to meet ALARA standards for radiation dose reduction. DATE: December 21, 2019. COMPARISON: CT chest June 21, 2019. July 06, 2018. INDICATION: 49-year-old female, follow-up pulmonary nodule. FINDINGS: There is a 5 mm right upper lobe pulmonary nodule on axial image 64 which is unchanged. This is unchanged since at least July 06, 2018. There is no new or enlarging pulmonary nodule. There is mosaic lung attenuation similar to prior exam which may relate to chronic small airways disease and air trapping versus a chronic vascular etiology. There is no pneumothorax. There is no pleural effusion. The central airways are patent. The main pulmonary artery is normal in caliber. There is no identified pulmonary embolus. There are prominent subcarinal, left hilar, and right hilar lymph nodes. There is a right paratracheal lymph node on axial image 40 measuring 12 mm in short axis. These are unchanged since at least July 06, 2018. There is no abnormally enlarged axillary lymph node meeting CT size criteria for adenopathy. The patient is status post cholecystectomy. There is a small accessory splenule. There is likely diffuse fatty infiltration of the liver. There is no identified acute bony abnormality. IMPRESSION: CT CHEST. 1. 5 mm right upper lobe pulmonary nodule stable since at least July 06, 2018. No new or enlarging pulmonary nodule. 2. Multifocal mosaic lung attenuation which may relate to chronic small airways disease and air trapping versus chronic vascular etiology. A pneumonitis may also be considered. 3. No identified pulmonary embolus or abnormally dilated main pulmonary artery diameter. 4. Unchanged adenopathy in the thorax since at least July 06, 2018. Dictated by: Dictated on workstation # [id number]
== END ==
LOC: RAD 12:45
PROVIDERS: ATTEND Nurse Practitioner Family
DX: J30.9 Allergic rhinitis, unspecified (principal); R91.1 Solitary pulmonary nodule; F17.210 Nicotine dependence, cigarettes, uncomplicated
CPT/HCPCS: 36415; 71260; 82565; 84520

== ENCOUNTER → 2020-11-29 | Outpatient (CLI) | payer MEDICAID ==
[~2020-11-29] MED LIST changes: +CATHETER FLUSH 10 ML SYR IV PRN; -LISI10TA2 PO; +LISI10TA25 PO; -NICO-588 TD; +NICO-685 TD
[2020-11-29 09:21] LABS: CREATININE SERUM 0.81 MG/DL (0.60-1.30)
--- NOTE | 2020-11-29 13:17 | Diagnostic Imaging Report ---
PROCEDURE: CT chest with contrast only. TECHNIQUE: Multiple contiguous axial images were obtained through the chest after administration of intravenous contrast. Auto Exposure Controls were utilized during the CT exam to meet ALARA standards for radiation dose reduction. INDICATION: Pulmonary nodule, abnormal findings on diagnostic imaging of the lungs. COMPARISON: December 21, 2019, and July 06, 2018. FINDINGS: Pacer device is present with the battery pack overlying the left chest. Prominent mediastinal, hilar, and axillary lymph nodes are again identified. These do not appear significantly changed since prior imaging dating back to June 2018. No definite new or increasing adenopathy. No aneurysmal dilatation of the thoracic aorta. Scattered vascular calcifications, particularly within the coronary arteries. The heart is within normal limits in size. No significant pericardial effusion. No pleural effusion. No pneumothorax. The trachea is patent. Geographic mosaic attenuation of the lungs bilaterally is again identified, mild in severity. This appears similar to the prior exam. 0.6 cm pleural-based right middle lobe pulmonary nodule is again identified, best seen on series 3, image 76. This is unchanged since July 06, 2018. No new suspicious pulmonary nodule or mass. Diffusely decreased density of the liver. Cholecystectomy. No acute osseous abnormality. IMPRESSION: Stable 0.6 cm pleural-based right middle lobe pulmonary nodule, unchanged since June 2018. Therefore, this is benign. No additional suspicious or new pulmonary nodule. Persistent geographic mosaic attenuation of the lungs, again this is felt to relate to chronic small airway disease versus air-trapping versus a chronic vascular etiology. Persistent and stable adenopathy within the chest, not significantly changed since June 2018. This of uncertain etiology. Dictated by: Dictated on workstation # [id number]
== END ==
LOC: RAD 08:54
PROVIDERS: ATTEND Nurse Practitioner Family
DX: R91.8 Other nonspecific abnormal finding of lung field (principal)
CPT/HCPCS: 36415; 71260; 82565; 84520

== ENCOUNTER → 2021-05-13 | Outpatient (CLI) | payer MEDICAID ==
[~2021-05-13] VITALS: Ht 154 cm; Wt 88.0 kg
[~2021-05-13] MED LIST changes: -CATHETER FLUSH 10 ML SYR IV PRN; +CATHETER FLUSH 10 ML SYR IVP PRN; -DULO60CA6 PO; +DULO60CA7 PO; -HOLD METFORMIN - RECEIVED CONTRAST 20 ML VIAL IV SCH; -IOHEXOL 350 MG/ML 100 ML (OMNIPAQUE 350) VIAL IV ONE; -NS 100 ML (IVPB) BAG IV ONE; +REGADENOSON 0.4 MG/5 ML SYR (LEXISCAN) IV ONE
[2021-05-13 13:40] VITALS: BP 167/103
== END ==
LOC: CARD 12:00
PROVIDERS: ATTEND Internal Medicine Cardiovascular Disease
DX: I25.10 Atherosclerotic heart disease of native coronary artery without angina pectoris (principal)
CPT/HCPCS: 78452; 93017; 93306; A9502